=== PATIENT | female | born 1960 | race Caucasian/White ===

== ENCOUNTER → 2020-03-19 18:15 | Outpatient (CLI) | payer BC, SELFPAY | PROVIDERS: PCP Family Medicine; Referring Provider Family Medicine; Visit Provider Family Medicine | DX: U07.1 COVID-19 (principal) | CPT/HCPCS: 87635; C9803; U0003 ==

== ENCOUNTER → 2020-03-29 17:42 | Outpatient (CLI) | payer BC, SELFPAY | PROVIDERS: PCP Family Medicine; Referring Provider Family Medicine; Visit Provider Family Medicine | DX: Z20.828 Contact with and (suspected) exposure to other viral communicable diseases (principal) | CPT/HCPCS: 87635; C9803; U0003 ==

== ENCOUNTER → 2022-06-06 | Outpatient (CLI) | payer BC, SELFPAY ==
--- NOTE | 2022-06-06 13:53 | BD_ITS ---
STUDY: DUAL ENERGY X-RAY ABSORPTIOMETRY / DXA REASON FOR EXAM: Female, 62 years old. Long-term carbamazepine therapy can cause osteoporoses TECHNIQUE: Bone Mineral Density (BMD) measurements of lumbar spine and bilateral hips were obtained. COMPARISON: None. FINDINGS: Lumbar Spine (L1-L4): g/cm2 (1.037) / T-score (-0.1) / Z-score (1.5) Findings are suggestive of normal bone density with a low fracture risk. Left Femur Total: g/cm2 (1.117) / T-score (1.4) / Z-score (2.5) Left Femoral Neck: g/cm2 (0.756) / T-score (-0.8) / Z-score (0.6) Right Femur Total: g/cm2 (1.052) / T-score (0.9) / Z-score (2.0) Right Femoral Neck: g/cm2 (0.910) / T-score (0.6) / Z-score (2.0) BD/Dexa Bone Density Study IMPRESSION: The patient is considered normal as outlined below according to World Clement Organization (WHO) criteria with a low fracture risk. Reference Information: The T-score is the number of standard deviations above or below the standard which is normal for young adults at their peak bone mineral density. The World Health Organization (WHO) interprets the T-scores as follows: Above -1 Normal bone density Between -1 and -2.5 Osteopenia Equal to / or below -2.5 Osteoporosis As a practical clinical guideline, osteopenia may be graded as follows: Mild -1 through -1.5 Moderate -1.6 through -2.0 Severe -2.1 through -2.4 The Z-score is the number of standard deviations above or below age-matched controls. A Z-score of less than -1.5 would be considered abnormal. References: 1. NIH Osteoporosis and Related Bone Diseases www osteo.org 2. International Society for Clinical Densitometry www iscd.org 3. National Osteoporosis Foundation www nof.org Electronically Signed: Marco Antonio Rojo MD at 13:30 EST ,
== END | disposition home or self-care (01) ==
LOC: OPBD 13:40
PROVIDERS: PCP Family Medicine; Visit Provider Psychiatry & Neurology Neurology
DX: Z51.81 Encounter for therapeutic drug level monitoring (principal); Z79.899 Other long term (current) drug therapy; M81.8 Other osteoporosis without current pathological fracture
CPT/HCPCS: 77080

== ENCOUNTER → 2023-02-01 | Outpatient (CLI) | payer BC, SELFPAY ==
--- NOTE | 2023-02-01 12:57 | MRI_ITS ---
HISTORY: low back pain with sciatica TECHNIQUE: Multiplanar and multisequence MR images of the lumbar spine were obtained without intravenous contrast. 120 images. COMPARISON: None. FINDINGS: VERTEBRAE: Vertebral body heights maintained. Mild degenerative endplate changes in the lower lumbar spine without other significant bone marrow signal abnormality. ALIGNMENT: No anterior or posterior subluxation. CONUS: Normal morphology and position of the conus medullaris at T12-L1. INTERVERTEBRAL DISCS: T12-L1: No significant posterior disc protrusion, central canal stenosis, or foraminal narrowing based on the sagittal images. L1-2: No significant posterior disc protrusion, central canal stenosis, or foraminal narrowing. L2-3: Mild disc bulge with facet arthropathy resulting in minimal narrowing of the thecal sac and bilateral foramina. L3-4: Minimal disc bulge and moderate facet arthropathy superimposed on a developmentally narrow spinal canal resulting in mild-moderate central canal stenosis and very mild bilateral foraminal narrowing. L4-5: No significant posterior disc protrusion, central canal stenosis, or foraminal narrowing. Moderate facet arthropathy. L5-S1: No significant posterior disc protrusion, central canal stenosis, or foraminal narrowing. SOFT TISSUES: Mild posterior subcutaneous edema. MRI/Spine Lumbar (Routine) IMPRESSION: Mild multilevel degenerative disc disease as above. Electronically Signed: Marilee Yung MD at 9:31 EDT ,
== END | disposition home or self-care (01) ==
LOC: MRI 12:50
PROVIDERS: PCP Nurse Practitioner Family; Referring Provider Nurse Practitioner Family; Visit Provider Nurse Practitioner Family
DX: M54.40 Lumbago with sciatica, unspecified side (principal)
CPT/HCPCS: 72148

== ENCOUNTER → 2023-04-11 | Outpatient (CLI) | payer BC, SELFPAY ==
--- OUTSIDE RECORDS SUMMARY | 2023-04-11 13:52 | XMS RPT_ITS | CCD ---
Author Name Unknown Address [address] [place] [address] Organization [facility] Care Team Providers Care Water Restoration Technician Name Role Phone Ivanauskas, Saulius Unavailable Unavailable Ivanacritsianas, Saulius Unavailable Unavailable David Cee A Unavailable Unavailable Kate Vail Unavailable Unavailable Cee Hernandez Unavailable Unavailable Cee Hernandez Primary Care Provider EMRE EDWARDS Admitting Unavailable JUDD FAYE Attending Unavailable EMRE EDWARDS Referring Unavailable CEE HERNANDEZ Primary Care Unavailable EMRE EDWARDS Admitting Unavailable ADELITA NO Attending Unavailable EMRE EDWARDS Referring Unavailable DAVIDCEE MCDONNELL Primary Care Unavailable EMRE EDWARDS Admitting Unavailable DANIA ABDUL Attending Unavailable EMRE EDWARDS Referring Unavailable DAVIDCEE MCDONNELL Primary Care Unavailable EMRE EDWARDS Admitting Unavailable DANIA ABDUL Attending Unavailable EMRE EDWARDS Referring Unavailable DAVIDCEE MCDONNELL Primary Care Unavailable EMRE EDWARDS Admitting Unavailable JUDD FAYE Attending Unavailable EMRE EDWARDS Referring Unavailable CEE HERNANDEZ Primary Care Unavailable Cee Hernandez MD Primary Care Provider CHARLY REYES Attending Unavailable CEE HERNANDEZ Primary Care Unavailable SHEEBA REYESA CHARLINERY Admitting Unavailable SHEEBA REYESA SABRY Referring Unavailable CEE HERNANDEZ Primary Care Unavailable SHEEBA REYESA JANELL Admitting Unavailable ERIC CHARLY SABRY Referring Unavailable CEE HERNANDEZ Primary Care Unavailable CHARLY REYES Attending Unavailable CEE HERNANDEZ Primary Care Unavailable Cee Hernandez MD Primary Care Provider [phone] Cee Hernandez Unavailable Unavailable Unavailable Cee Hernandez Primary Care Unavailable PAULA, Dr. RAFAEL CLARKE Referring Unav ailable PAULA, Dr. RAFAEL CLARKE Attending Unav ailCee Wagner Primary Care Unavailable MITCHELL, Dr. RAFAEL CLARKE Attending Unav ailable Mitchell, Dr. Avery Attending Unavailable David, Dr. Cee Payan Primary Care Unavail able Mitchell, Dr. Avery Referring Unavailable David, Dr. Cee Payan Primary Care Unavail able Paula, Dr. Avery Referring Unavailable Paula, Dr. Avery Attending Unavailable Cee Hernandez MD Primary Care Provider CEE HERNANDEZ Primary Care Unavailable Erich SUPERVISOR MIXING-Sahil CLINE Primary Care Provider SAHIL BELLA Referring Unavailable SAHIL BELLA Primary Care Unavailable Allergies Allergy Classification Reported Allergen(s) Allergy Type Date of Onset Reaction(s) Facility (7 sources) iodine; Translations: [iodine] Drug Allergy 2 Itching, Swelling [facility] Repository (2 sources) Shellfish; Translations: [SHELLFISH DERIVED] Propensity to adverse reactions to drug [address] [facility] (2 sources) Ct: Iodinated Contrast- Oral And Iv Dye; Translations: [CT: IODINATED CONTRAST- ORAL AND IV DYE] Propensity to adverse reactions to drug [address] [facility] (3 sources) Lobster - dietary Food Allergy 2 Swelling [facility] (3 sources) Seasonal allergy Propensity to adverse reactions 9 Intolerance [facility] (4 sources) Tomatoes Food Allergy 4 Hives [facility] (1 source) Mold Extract Drug Allergy [facility] [address] Work Phone: (2 sources) ALLERGIES NOT ON FILE; Translations: [ALLERGIES NOT ON FILE] Propensity to adverse reactions (disorder) [facility] Medications Current Medications Medication Drug Class(es) Dates Sig (Normalized) Sig (Original) clotrimazole-betameth dip-zinc 1-0.05-20 % Cmpk (2 sources) clotrimazole-bet ameth dip-zinc 1-0.05-20 % Cmpk Apply topically . 0 Active multivitamin (multivitamin) per tablet (1 source) take 1 tablet by mouth once daily multivitamin (multivitamin) per tablet Take 1 tablet by mouth daily . 0 Active Completed/Discontinued Medications Medication Drug Class(es) Dates Sig (Normalized) Sig (Original) Bupivacaine (2 sources) Amide Local Anesthetic Start: 05-16-2021 End: 05-17-2021 bupivacaine HCl (MARCAINE) 0.5 % (5 mg/mL) injection 1 mL 12 hr carBAMazepine 400 mg extended release oral tablet (10 sources) Mood Stabilizer Start: 06-01-2017 TEGRETOL XR 400 mg 12 hr tablet TAKE 1 TABLET THREE TIMES A DAY 270 tablet 4 06/14/2018 Active Problems Active Problems Problem Classification Problem Date Documented Date Episodic/Chronic Asthma (3 sources) Asthma; Translations: [Unspecified asthma, uncomplicated] Onset: 05-21-2013 05-21-2013 Chronic Epilepsy; convulsions (2 sources) Epilepsy, unspecified, not intractable, without status epilepticus; Translations: [Epilepsy, unspecified, not intractable, without status epilepticus (CMS/HCC)] Onset: 01-12-2023 Chronic Essential hypertension (1 source) Hypertensive disorder; Translations: [Essential (primary) hypertension] 03-24-2023 Chronic Osteoarthritis (4 sources) Osteoarthritis of left foot; Translations: [Primary osteoarthritis, left ankle and foot] Chronic Other connective tissue disease (2 sources) Pain in both feet; Translations: [Pain in right foot] Episodic Other female genital disorders (1 source) Enlarged uterus; Translations: [Hypertrophy of uterus] Episodic Other lower respiratory disease (1 source) Dyspnea; Translations: [Shortness of breath] 03-24-2023 Episodic Other nervous system disorders (2 sources) Polyneuropathy, unspecified; Translations: [Polyneuropathy, unspecified] Onset: 01-12-2023 Chronic Other nutritional; endocrine; and metabolic disorders (3 sources) Obesity; Translations: [Obesity, unspecified] 06-30-2013 Chronic Other nutritional; endocrine; and metabolic disorders (3 sources) Body mass index 40+ - severely obese; Translations: [Morbid (severe) obesity due to excess calories] Onset: 10-18-2018 10-18-2018 Chronic Other and delivery including normal (1 source) Delivery normal; Translations: [Normal delivery] Episodic Past or Other Problems Problem Classification Problem Date Documented Da te Episodic/Chronic Epilepsy; convulsions (3 sources) Seizure; Translations: [Unspecified convulsions] Onset: 05-21-2013 05-21-2013 Episodic Other and unspecified benign neoplasm (3 sources) Lipoma (clinical); Translations: [Benign lipomatous neoplasm, unspecified] Onset: 03-14-2004 10-18-2018 Episodic Other female genital disorders (4 sources) Hypertrophy of uterus; Translations: [Hypertrophy of uterus] Onset: 11-15-2021 Episodic Residual codes; unclassified (1 source) Asymptomatic menopausal state; Translations: [Asymptomatic menopausal state] Onset: 11-15-2021 Episodic Spondylosis; intervertebral disc disorders; other back problems (17 sources) Lumbar radiculopathy; Translations: [Sciatica] Onset: 08-11-2008 02-03-2020 Episodic Unclassified (1 source) Finding of menstrual bleeding; Translations: [Menstruation] Results Test Name Value Interpretation Reference Range Facil ity Vital Signs Date Time Vital Sign Value Performing Clinician Facility 03-24-2023 00:38-0500 Body height 157.5 cm Trent Domínguez MD Work Phone: [facility] 03-24-2023 00:38-0500 Body mass index (BMI) [Ratio] 53.04 kg/m2 Trent Domínguez MD Work Phone: [facility] 03-24-2023 00:38-0500 Body temperature 98.6 [degF] Trent Domínguez MD Work Phone: [facility] 03-24-2023 00:38-0500 Body weight 131.54 kg Trent Domínguez MD Work Phone: [facility] 03-24-2023 00:38-0500 Diastolic blood pressure 92 mm[Hg] Trent Domínguez MD Work Phone: [facility] 03-24-2023 00:38-0500 Heart rate 82 /min Trent Domínguez MD Work Phone: [facility] 03-24-2023 00:38-0500 Respiratory rate 16 /min Trent Domínguez MD Work Phone: [facility] 03-24-2023 00:38-0500 SaO2% (BldA) [Mass fraction] 97 % Trent Domínguez MD Work Phone: [facility] 03-24-2023 00:38-0500 Systolic blood pressure 186 mm[Hg] Trent Domínguez MD Work Phone: [facility] 06-20-2021 15:34-0400 Diastolic blood pressure 94 mm[Hg] Charly Eric DPM Work Phone: [facility] 06-20-2021 15:34-0400 Heart rate 69 /min Charly Eric DPM Work Phone: [facility] 06-20-2021 15:34-0400 Systolic blood pressure 162 mm[Hg] Charly Eric DPM Work Phone: [facility] 06-20-2021 15:27-0400 Body temperature 97.7 [degF] Charly Stella DPM Work Phone: [facility] 05-16-2021 15:10-0500 Body temperature 98.2 [degF] Charly Eric DPM Work Phone: [facility] 05-16-2021 15:10-0500 Diastolic blood pressure 85 mm[Hg] Charly Eric DPM Work Phone: [facility] 05-16-2021 15:10-0500 Heart rate 70 /min Charly Stella DPM Work Phone: [facility] 05-16-2021 15:10-0500 Systolic blood pressure 145 mm[Hg] Charly Stella DPM Work Phone: [facility] 11-15-2018 17:46-0400 BMI (Body Mass Index) 49.38 kg/m2 [facility] Work Phone: 11-15-2018 17:46-0400 Body Temperature 98.1 [degF] Kate [facility]ail [facility] Work Phone: 11-15-2018 17:46-0400 Body weight 122.47 kg Kate Vail [facility] Work Phone: 11-15-2018 17:46-0400 BP Diastolic 84 mm[Hg] Kate Vail [facility] Work Phone: 11-15-2018 17:46-0400 BP Systolic 133 mm[Hg] Kate Vali [facility] Work Phone: 11-15-2018 17:46-0400 BSA (Body Surface Area) 2.17 m2 Kate [facility] Work Phone: 11-15-2018 17:46-0400 Height 157.48 cm Kate Vail [facility] Work Phone: 11-15-2018 17:46-0400 Pulse (Heart Rate) 68 /min Kate Vail [facility] Work Phone: 11-15-2018 17:46-0400 Pulse Oximetry 96 % Kate [facility]ail [facility] Work Phone: 11-15-2018 17:46-0400 Respiratory Rate 16 /min Kate Vail [facility] Work Phone: 11-15-2018 17:46-0400 7 1 Kate Vail [facility] Work Phone: Encounters Encounter Date Encounter Type Care Provider Facility Start: 03-24-2023 End: 03-24-2023 Emergency department patient visit Trent Domínguez MD Work Phone: [facility] Emergency Medicine Procedures Date Procedure Procedure Detail Performing Clinician Start: 03-08-2023 BI MAMMO BILATERAL S CREENING TOMOSYNTHESIS SAHIL BELLA Start: 03-08-2023 End: 03-08-2023 Screening digital breast tomosynthesis bi Sahil Bella SUPERVISOR MIXING-RETAIL SPECIAL EVENT ASSOCIATE Work Phone: Start: 01-12-2023 Cyanocobalamin vitamin b-12 CEE DAVID Start: 01-12-2023 CARBAMAZEPINE CEE PABLO SATHYA Start: 01-12-2023 CBC panel - Blood by Automated count CEE DAVID Start: 01-12-2023 Comprehensive metabo lic 2000 panel - Serum or Plasma CEE DAVID Start: 01-12-2023 Lipid panel CEE MILLER Start: 01-12-2023 Lipid 1996 panel - S israel or Plasma Delio Mammo Start: 03-07-2022 Mammography [facility] Start: 11-11-2021 Microscopic observat ion [Identifier] in Cervix by Cyto stain [facility] Start: 05-16-2021 End: 05-16-2021 Radex foot complete minimum 3 views Charly Reyes DPM Work Phone: Start: 02-01-2021 Mammography Katrin Santamaria MD Work Phone: Start: 11-07-2017 Mammography Charly agee DPM Work Phone: Start: 10-28-2014 Adult depression scr eening assessment Katrin Santamaria MD Work Phone: Arthroplasty of knee Cee Hernandez Work Phone: Bilateral tubal ligation Sco gab Hernandez Work Phone: Cholecystectomy Cee miller Work Phone: Elbow joint operations Cee Hernandez Work Phone: Extraction of wisdom tooth S garth Hernandez Work Phone: Plan of Treatment Date Care Activity Detail Author Start: 01-13-2028 Lipid panel Lipid Panel [facility] Start: 11-11-2024 Screening for malignant neoplasm of cervix [facility] Start: 09-01-2024 Screening for malignant neoplasm of colon [facility] Start: 03-08-2024 Screening for malignant neoplasm of breast Mammogram [facility] Start: 10-19-2023 HPV TESTING HPV TESTING [facility] Start: 10-19-2023 PAP TESTING PAP TESTING [facility] Start: 03-07-2023 Screening for malignant neoplasm of breast Mammogram [facility] Start: 04-09-2022 DEPRESSION ASSESSMENT DEPRESSION ASSESSMENT [facility] Start: 02-01-2022 Mammography MAMMOGRAM [facility] Start: 12-08-2021 Influenza vaccination [facility] Start: 08-22-2021 End: 08-22-2021 Patient encounter procedure 08/22/2021 Office Visit Podiatry Charly Reyes, DPM [address] [place] [address] [facility] Start: 06-13-2021 End: 06-13-2021 Patient encounter procedure 06/13/2021 Office Visit Podiatry Charly Reyes, DPM [address] [place] [address] [facility] Start: 05-20-2021 COVID-19 Vaccine (2 - Pfizer series) COVID-19 Vaccine (2 - Pfizer series) [facility] Start: 12-15-2020 COVID-19 VACCINE (3 - Booster for Pfizer series) COVID-19 VACCINE (3 - Booster for Pfizer series) [facility] Start: 12-08-2020 Influenza vaccination INFLUENZA (#1) [facility] Start: 09-09-2020 COVID-19 VACCINE (3 - Booster for Pfizer series) COVID-19 VACCINE (3 - Booster for Pfizer series) [facility] Start: 03-05-2020 End: 03-05-2020 Treatment [facility] Start: 03-02-2020 End: 03-02-2020 Treatment 03/02/2020 Treatment Rehabilitation Emre Edwards, [address] [place] [address] [phone] Katharine Lopes PTA [facility] Start: 02-26-2020 End: 02-26-2020 Treatment 02/26/2020 Treatment Rehabilitation Emre Edwards, DO [address] [place] [address] [phone] Judd Faye, PT [facility] Start: 02-24-2020 End: 02-24-2020 Treatment 02/24/2020 Treatment Rehabilitation Emre Edwards, DO [address] [place] [address] [phone] Katharine Lopes, [facility] Start: 02-19-2020 End: 02-19-2020 Treatment 02/19/2020 Treatment Rehabilitation Emre Edwards, DO [address] [place] [address] [phone] Dania Abdul [facility] Start: 02-17-2020 End: 02-17-2020 Treatment 02/17/2020 Treatment Rehabilitation Emre Edwards, DO [address] [place] [address] [phone] Dania Abdul [facility] Start: 02-13-2020 End: 02-13-2020 Treatment 02/13/2020 Treatment Rehabilitation Emre Edwards, [address] [place] [address] [phone] Dania Abdul [facility] Start: 02-05-2020 End: 02-05-2020 Treatment 02/05/2020 Treatment Rehabilitation Emre Edwards, DO [address] [place] [address] [phone] Adelita No [facility] Start: 12-09-2019 Influenza vaccination given Sequential Influenza Vaccine (#1) [facility] Start: 01-25-2019 DIABETES SCREEN DIABETES SCREEN [facility] Start: 12-22-2018 Tetanus vaccination Tetanus: Every 10yrs [facility] Start: 11-07-2018 Screening for malignant neoplasm of breast Mammogram [facility] Start: 05-21-2017 LIPID SCREEN LIPID SCREEN [facility] Start: 10-29-2015 Adult depression screening assessment DEPRESSION SCREENING [facility] Start: 2009 Administration of herpes zoster vaccine Zoster Vaccines (1 of 2) [facility] Start: 2009 Screening for malignant neoplasm of colon [facility] Start: 2009 SHINGRIX VACCINE (1 of 2) SHINGRIX VACCINE (1 of 2) [facility] Start: 12-23-2008 DTaP/Tdap/Td Vaccines (1 - Tdap) DTaP/Tdap/Td Vaccines (1 - Tdap) [facility] Start: 12-23-2008 Urine microalbumin profile DTAP,TDAP,TD (1 - Tdap) [facility] Start: 2004 COLOGUARD (FIT-DNA) COLOGUARD (FIT-DNA) [facility] Start: 2004 Colonoscopy COLONOSCOPY [facility] Start: 2004 COLORECTAL CANCER SCREENING COLORECTAL CANCER SCREENING [facility] Start: [address] COLONOGRAPHY [facility] Start: 2004 FECAL OCCULT BLOOD FECAL OCCULT BLOOD [facility] Start: 2004 SIGMOIDOSCOPY SIGMOIDOSCOPY [facility] Start: 01-27-2003 PNEUMOCOCCAL (2 - PCV) PNEUMOCOCCAL (2 - PCV) [facility] Start: 1980 Screening for malignant neoplasm of cervix HPV/Cotest [facility] Start: 1977 ANNUAL PCP TEAM CHRONIC DISEASE VISIT ANNUAL PCP TEAM CHRONIC DISEASE VISIT [facility] Start: 1977 Diabetes mellitus screening Diabetes Screening [facility] Start: 1977 Hepatitis C antibody, confirmatory test Hepatitis C Screening [facility] Start: 1977 Hepatitis C screening Hepatitis C Screening [facility] Start: 1977 HEPATITIS C SCREENING HEPATITIS C SCREENING [facility] Start: 1977 HIV SCREENING HIV SCREENING [facility] Start: 1977 SPIROMETRY SPIROMETRY [facility] Start: 1974 HIV screening HIV Screening [facility] Start: 1971 Adolescent depression screening assessment Depression Screening (PHQ9) [facility] Start: 1971 Depression screening using PHQ-9 (Patient Health Questionnaire 9) score Depression Screening (PHQ-2/9) [facility] Start: 1962 History and physical examination, annual for health maintenance Wellness Visit [facility] Start: 1960 MMR Vaccines (1 of 1 - Standard series) MMR Vaccines (1 of 1 - Standard series) [facility] Start: 1959 HIV screening HIV Screening [facility] Start: 1959 Screening for malignant neoplasm of cervix Pap Smear [facility] Start: 1959 Screening for malignant neoplasm of colon [facility] Start: [address] [facility] Start: 1959 Tetanus vaccination Tetanus: Every 10yrs [facility] Start: 1959 Yearly Adult Physical Yearly Adult Physical [facility] End: 03-08-2023 DBT Breast - bilateral [facility] Service Area Work Phone: Immunizations Immunization Date Immunization Notes Care Provider Manish cuello 01-22-2018 influenza, injectabl e, quadrivalent, preservative free Katrin Santamaria MD Work Phone: [facility] Work Phone: 01-04-2017 influenza, injectabl e, quadrivalent, contains preservative Katrin Santamaria MD Work Phone: [facility] Work Phone: 01-04-2017 influenza, injectabl e, quadrivalent, preservative free Katrin Santamaria MD Work Phone: [facility] Work Phone: 02-17-2016 influenza, injectabl e, quadrivalent, contains preservative Katrin Santamaria MD Work Phone: [facility] Work Phone: 01-29-2015 influenza, seasonal, injectable, preservative free Katrin Santamaria MD Work Phone: [facility] Work Phone: 02-11-2013 influenza, seasonal, injectable Katrin Santamaria MD Work Phone: [facility] Work Phone: 02-06-2012 influenza, seasonal, injectable Katrin Santamaria MD Work Phone: [facility] Work Phone: 01-27-2011 influenza, seasonal, injectable Katrin Santamaria MD Work Phone: [facility] Work Phone: 01-17-2010 influenza, seasonal, injectable Katrin Santamaria MD Work Phone: [facility] Work Phone: 03-22-2009 influenza, seasonal, injectable Katrin Santamaria MD Work Phone: [facility] Work Phone: 12-22-2008 tetanus and diphther ia toxoids, adsorbed, preservative free, for adult use (5 Lf of tetanus toxoid and 2 Lf of diphtheria toxoid) Katrin Santamaria MD Work Phone: [facility] Work Phone: 02-08-2006 influenza, seasonal, injectable Katrin Santamaria MD Work Phone: [facility] Work Phone: 01-27-2002 pneumococcal polysaccharide vaccine, 23 valent Katrin Santamaria MD Work Phone: [facility] Work Phone: Payers Date Payer Category Payer Unknown [id number] 2013 Unknown 2013 Unknown [id number] . [id number] 1959 Unknown [id number] . [id number] 1959 Unknown [id number] 2.16 [id number] 1959 Unknown [id number] 2.16. [id number] 1959 Unknown [id number] 2.16 [id number] 1959 Unknown [id number] 2.16 [id number] 1959 Unknown [id number] 2.16. [id number] 1959 Unknown [id number] 2.16. [id number] 1959 Unknown [id number] 2.16. [id number] 1959 Unknown [id number] 2.16. [id number] 1959 Unknown [id number] 2.16. [id number] 1959 Unknown [id number] 2.16. [id number] 1959 Unknown [id number] 2.16.8 [id number] 1959 Unknown [id number] 2.16.8 [id number] 1959 Unknown [id number] 2.16.84 [id number] 1959 Unknown [id number] 2.16.84 [id number] Social History Date Type Detail Facility Assertion Unknown if ever smoked [facility] Work Phone: Start: 02-03-2020 End: 02-26-2020 Tobacco smoking status DEIS Unknown if ever smoked [facility] Start: 1960 Sex Assigned At Not on file [facility] Start: 06-10-2021 End: 03-24-2023 Exposure to SARS-CoV-2 (event) Not sure [facility] Start: 05-16-2021 [facility] Start: 04-26-2012 End: 05-16-2021 Tobacco use and exposure Smokeless tobacco non-user [facility] Start: 05-16-2021 End: 06-20-2021 Alcohol intake Ex-drinker (finding) [facility] Start: 04-26-2012 Tobacco smoking stat us NHIS Never smoked tobacco [facility] Start: 02-13-2020 Alcohol intake Current drinke r of alcohol (finding) [facility] Start: 04-26-2012 History SDOH Alcohol Comment occ [facility] Gender identity Not on file [facility] Work Phone: Medical Equipment Procedure Code Equipment Code Equipment Origin al Text Equipment Identifier Dates Liborio Bn Smpx P To bra Fd - [id number] Start: 06-22-2011 Functional Status Date Assessment Result Facility NEGATED: Highlighted row Functional performance Functional status health issues are not documented [facility] Work Phone: Mental Status Date Assessment Result Facility NEGATED: Highlighted row Cognitive function [Interpretation] Cognitive status health issues are not documented [facility] Work Phone: Clinical Notes 02-01-2021 to 03-24-2023 Trent Domínguez MD - 03/24/2023 12:29 AM Bienvenido Domínguez MD - 03/24/2023 12:29 AM ESTTelephone Encounter - Patito Carranza RN - 04/18/2022 4:32 PM Adele Reyes DPM - 06/20/2021 3:50 PM EDT Note Date & Type Note Facility 03-24-2023 Emergency department Note Patient is a 62-year-old female presents with a chief complaint of dyspnea and having some sores on the underneath of her upper lip. This has been going on for quite some time . Initially she thought it might have been COVID which she had 2 weeks ago but that has seemingly resolved. What they are actually wondering, the patient and is if she is having an allergic reaction to meloxicam and if they should stop it. No chest pain. No radiating symptoms extremity neck or jaw. Review of Systems Physical Exam Vitals and nursing note reviewed. Constitutional: General: She is not in acute distress. Appearance: She is well-developed. HENT: Head: Normocephalic and atraumatic. Eyes: Conjunctiva/sclera: Conjunctivae normal. Cardiovascular: Rate and Rhythm: Normal rate and regular rhythm. Heart sounds: No murmur heard. Pulmonary: Effort: Pulmonary effort is normal. No respiratory distress. Breath sounds: Normal breath sounds. Abdominal: Palpations: Abdomen is soft. Tenderness: There is no abdominal tenderness. Musculoskeletal: General: No swelling. Cervical back: Neck supple. Skin: General: Skin is warm and dry. Capillary Refill: Capillary refill takes less than 2 seconds. Neurological: Mental Status: She is alert. Psychiatric: Mood and Affect: Mood normal. Labs Reviewed - No data to display No orders to display Procedures Medical Decision Making Patient presents with very mild dyspnea and some sores in her mouth. I did not really appreciate the sores in the mouth but she states she can feel them underneath her lip. She has no wheezing. No retractions. She is afebrile nontachycardic with normal O2 saturation on room air. I discussed at length with them that I do not believe that she is having a reaction to the meloxicam. I offered additional diagnostics such as chest x-ray and cardiac workup and they declined stating that their primary purpose was to find out if they should stop taking the meloxicam and they will follow-up with the primary care physician. The computers were down at the completion of our visit and the patient and have elected to depart prior to receiving her paperwork. Diagnoses as of 03/24/23114 Shortness of breath Hypertension, unspecified type Trent Domínguez MD 03/24/23114 documented in this encounter [facility] Work Phone: 03-24-2023 Physician Emergency department Note Patient is a 62-year-old female presents with a chief complaint of dyspnea and having some sores on the underneath of her upper lip. This has been going on for quite some time . Initially she thought it might have been COVID which she had 2 weeks ago but that has seemingly resolved. What they are actually wondering, the patient and is if she is having an allergic reaction to meloxicam and if they should stop it. No chest pain. No radiating symptoms extremity neck or jaw. Review of Systems Physical Exam Vitals and nursing note reviewed. Constitutional: General: She is not in acute distress. Appearance: She is well-developed. HENT: Head: Normocephalic and atraumatic. Eyes: Conjunctiva/sclera: Conjunctivae normal. Cardiovascular: Rate and Rhythm: Normal rate and regular rhythm. Heart sounds: No murmur heard. Pulmonary: Effort: Pulmonary effort is normal. No respiratory distress. Breath sounds: Normal breath sounds. Abdominal: Palpations: Abdomen is soft. Tenderness: There is no abdominal tenderness. Musculoskeletal: General: No swelling. Cervical back: Neck supple. Skin: General: Skin is warm and dry. Capillary Refill: Capillary refill takes less than 2 seconds. Neurological: Mental Status: She is alert. Psychiatric: Mood and Affect: Mood normal. Labs Reviewed - No data to display No orders to display Procedures Medical Decision Making Patient presents with very mild dyspnea and some sores in her mouth. I did not really appreciate the sores in the mouth but she states she can feel them underneath her lip. She has no wheezing. No retractions. She is afebrile nontachycardic with normal O2 saturation on room air. I discussed at length with them that I do not believe that she is having a reaction to the meloxicam. I offered additional diagnostics such as chest x-ray and cardiac workup and they declined stating that their primary purpose was to find out if they should stop taking the meloxicam and they will follow-up with the primary care physician. The computers were down at the completion of our visit and the patient and have elected to depart prior to receiving her paperwork. Diagnoses as of 03/24/23114 Shortness of breath Hypertension, unspecified type Trent Domínguez MD 03/24/23114 [facility] Work Phone: 04-18-2022 Miscellaneous Notes LVM that [facility] sent a fax for refill. Pt is due for an appt. Enc to call to sched appt and let us know if she does need a refill. Patito Carranza RN documented in this encounter [facility] 11-11-2021 Note 31 Date of Procedure: 11/11/2021 Pathologist: [facility], Cytology Date Reported: 11/18/2021 Date Received: 11/11/2021 Submitting Physician: RAFAEL MITCHELL M.D. FINAL CYTOLOGICAL INTERPRETATION A. THINPREP PAP CERVICAL: Specimen Adequacy: SATISFACTORY FOR EVALUATION. Quality Indicator: Absence of endocervical/transformation zone component. General Categorization: NEGATIVE FOR INTRAEPITHELIAL LESION OR MALIGNANCY. HIGH RISK HPV TEST RESULT: NEGATIVE Reference Range: Negative Slide(s) initially screened by a Inventory Control Analyst at [facility], [address] [place], [place] [id number] Testing for high-risk (HR) type of human papilloma virus (HPV) is performed by the Ronaldo rahat HPV Test. The rahat HPV Test is a qualitative polymerase chain reaction that amplifies DNA of HPV16, HPV18 and 12 other high-risk HPV types (31, 33, 35, 39, 45, 51, 52, 56, 58, 59, 66, and 68) associated with cervical cancer and its precursor lesions. A positive result indicates the presence of HPV DNA due to one or more of the 14 genotypes: 16, 18, 31, 33, 35, 39, 45, 51, 52, 56, 58, 59, 66, and 68. Negative results indicate HPV DNA concentrations are undetectable or below the pre-set threshold for detection. False negative results may be associated with unoptimized sampling. A negative HR HPV result does not exclude the possibility of future cytologic HSIL or underlying CIN2-3 or cancer. This test is approved for cervical specimens by the US Food and Drug Administration. Results of this test should be interpreted in conjunction with the patient?s Pap test results. Please refer to ASCCP current guidelines for the use of HPV DNA testing, result interpretation, and patient management. The performance of this test was verified by the [facility] Laboratory at [facility]. The lab is certified under the Clinical Laboratory Amendments of 1988 (CLIA 88) as qualified to perform high complexity clinical laboratory testing. This specimen has been analyzed by the [employer] Imaging System ([employer] an automated imaging and review system, which assists the laboratory in evaluating cells on ThinPrep Pap tests. Following automated imaging, selected gomez from every slide were reviewed by a cab station attendant and/or pathologist. Electronically Signed Out By [facility], Cytology//KMW By the signature on this report, the individual or group listed as making the Final Interpretation/Diagnosis certifies that they have reviewed this case. Diagnostic interpretation performed at [facility] [address] [place] [address] Educational Note: Cervical cytology is a screening procedure primarily for squamous cancers and precursors and has associated false-negative and false-positive results as evidenced by published data. Your patient?s test should be interpreted in this context, together with patient?s history and clinical findings. Regular sampling and follow-up of unexplained clinical signs and symptoms are recommended to minimize false negative results. Clinical History Date of Last Menstrual Period: ALBERTO Other Clinical Conditions: COTEST HPV except for ASC-H, HSIL, Carcinoma - Exclude HPV Genotype testing Annual Clinical Diagnosis History: Encounter for routine gynecological examination - (Z01.419); Screening for cervical cancer - (Z12.4) Source of Specimen A: THINPREP PAP CERVICAL [facility] Department of Pathology [id number] [place] [address] [facility] Diagnosis Primary osteoarthritis of left foot- Primary Primary osteoarthritis of right foot Bilateral foot pain [facility] Diagnosis Encounter for screening mammogram for malignant neoplasm of breast documented in this encounter [facility] Work Phone: Evaluation note* Diagnosis Encounter for screening mammogram for malignant neoplasm of breast documented in this encounter [facility] Work Phone: Evaluation note* Diagnosis Shortness of breath- Primary Hypertension, unspecified type documented in this encounter [facility] Work Phone: Summary Purpose Family History Unknown Family Member Name Dates Details No pertinent family history: Mother, Father(V49.89, Z78.9) Status:Active Advance Directives Documents on File Type Date Recorded Patient 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 Radiculopathy, lumbar region 2. Sciatica of right side Clinical Information: Subjective Referring Diagnosis: Lumbar Radiculopathy Follow Up With Physician: none scheduled. History of Present Illness Date of Onset: years. Chief Complaint/ Mechanism of Injury: Pt reports c/o low back, right side buttock and right posterolateral hip pain. Pt states the only thing she can recall that may have caused her symptoms was sitting down on the floor for an extended period of time to play with her grandchild. Pt states she has been dealing with a pinched nerve in her buttock for years. She has been through therapy in the pastand was provided stretches which she continues to perform and get relief of symptoms. Pt reports occasional LE numbness if she lies on her side for too long. Pt also reports feeling like there are pieces of glass in her achilles tendon. Previous Treatment for this condition: Therapy Prior treatment effectiveness: moderate Previous Imaging: X-ray (01/09/20) Status: improving (since taking the steroids) Pain Scale: Average Pain: 1/10 Pain at highest: 4/10 Aggravating factors: prolonged standing and walking, forward bending from a standing position Easing factors: Diclofenac, 2 doses of steroids, heat, rest 24 Hour Symptom Behavior Morning Pain: gradual End of day pain: worse Functional Status Functional Limitations: limited mobility and standing Premorbid Functional Level: Patient reported and Independent with all ADLs/IADLs Current Functional Level: None Daily activity scale: low active Sleep Assessment Preferred sleep position: on side (left) Sleep disturbance: Sleep Disturbance Red Flags: None Barriers to Care: None Fall risk screening Fallen 2 or more times in the last 12 months: No Injured as a result of a fall in the last 12 months: No Personal Goals: Manage pain and return to prior level of function Social History Occupation: retired - enjoys yard work and playing with her grandchildren Home environment: house ([address]) Advent, social, or cultural considerations to be made aware of before starting treatment: No Lumbar Spine Posture: rounded shoulders posture and reduced lordosis Asymmetrics: Leg length: right shorter <1cm Trunk AROM: Movement Loss % of Loss Description Flexion 0% increased right posterolateral hip pain Extension 0% slight pain in right PSIS region Side Gliding R 25% no change Side Gliding L 25% slight pain in lower lumbar spine Dermatomes Sensation: grossly intact Muscle Strength: Hip Flexion Right: 4 Left: 4 Knee extension Right: 4+ Left: 5 Ankle DF Right: 5 Left: 5 Ankle PF Right: 5 Left: 5 Knee flexion Right: 5 Left: 5 Hip extension Right: 4 Left: 4 Hip ABD Right: 5 Left: 4+ Special Tests Slump Right: no Slump R Left: no Slump L SLR Right: no SLR R Left: no SLR L Scour: Negative Right for hip joint but produced pain in the right SIJ region TANYA: Positive Right for possible SIJ dysfunction SIJ dysfunction: SIJ Dysfunction FOTO Score: 50 Treatments: Physical Therapy Exercise Log - 02/03/20 1138 OTHER Notes Visit 1: 10:55 - 11:35 Therapeutic Exercise (72714) Intervention provided written HEP handouts consisting of LTR, SKTC, piriformis and HS stretches andPPTs PT Treatment Times Total Treatment Time 40 Goals: Physical Therapy Ortho Goals: MOBILITY: Patient will be able to ambulate for up to 20 minutes in community without difficulty in 6 weeks. CHANGING MAINTAINING POSITON: Patient will be able to stand for up to 30 minutes without pain in 6 weeks IMPAIRMENT: Patient will demonstrate improved postural awareness in PT sessions to facilitate mechanical alignment and function in 3 weeks. IMPAIRMENT: Improve pain from 4/10 to <3/10 during prolonged standing and ambulation in 6 weeks IMPAIRMENT: Improve MMT of Bilateral Hip Flexion from 4/5 to at least 4+/5 in 6 weeks OTHER: Patient will increase FOTO score from 50 to at least 60 to show MDC/MCII and expected functional outcome in 6 weeks. OTHER: Patient will be able to properly demonstrate independence with HEP in 2 weeks. CPT Code 39163 Low 06861 Moderate 76089 High History 0 1-2 3+ Comorbidities: asthma, obesity and seizures, Personal factors: chronicity or severity of the current condition Examination of body systems (elements of body structures & functions, activity limitations, and/or participation restrictions) 1-2 elements 3+ elements 4+ elements See below clinical impression Clinical Presentation Stable Evolving Unstable As evidenced by reproduction of or changes in symptoms with certain movements and pt report of overall worsening of symtpoms over time Decision Making Low (FOTO >/= 69) Moderate (FOTO 34 - 68) High (FOTO </= 33) FOTO score= 50 Pt is a 59 y.o. female who presents to PT services with c/o right side low back/SIJ pain. Upon assessment, pt has been found with the following impairments: impaired posture, decreased strength, antalgic gait, decreased stability and pain. 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 The pt would benefit from skilled PT services focused on the above listed impairments and limitations in order to safely progress pt to their desired level of function. Pt to be discharged from OP PT services if/when goals are met, if they fail to make progress with conservative management in PT, if their level of progress plateaus, or if they do not maintain compliance with attendance or HEP. At this time, it is my clinical judgment that services are medically necessary. Plan of Care Frequency of Visits: 2 times per week Duration: 6 weeks Interventions: Therapeutic Exercise, Neuromuscular Re-Education, Manual Therapy, Therapeutic/ Functional Activities, Gait Training and Hot/Cold Pack Rehab Potential: good Suicide Screen Signs and Symptoms of Abuse/Neglect: No Actions Taken: No Suicide Risk: Does the patient feel like ending their life today?No Actions Taken: No Patient Education Provided Pt was educated on the benefits of therapy and importance of compliance with sessions and HEP for rehabilitation. Pt was also educated on treatment diagnosis, POC, and frequency/duration of treatment. Clinical Impression Pt would benefit from PT interventions for possible lumbar radiculopathy and piriformis syndrome toaddress impairments in trunk ROM, mobility and core strength/stability as well as pain control. Judd Faye PT State License, [id number] documented in this encounter* Adelita No, TRINITY - 02/05/2020 1:45 PM EDT [facility] DAILY TREATMENT NOTE Today's Date 02/05/2020 Patient Name: Vani Escobar Date of : 1960 Current Visit #: 2 Authorized Visits: 60 Case Name: Lumbar Radiculopathy History: Pre-Treatment Pain Scale: 1 - just from stretching Symptoms: limited progress, 1st visit Functional Diagnosis: 1. Radiculopathy, lumbar region Clinical Information: Subjective: Pt reports having difficulty with HEP, will review all ex's Objective Continued with current ex given with HEP review and added SB core ex's for strengthening/stretching LB. Treatments: Physical Therapy Exercise Log - 02/05/20 1346 OTHER Notes Visit 1: 10:55 - 11:35 Therapeutic Exercise (01406) Intervention provided written HEP handouts consisting of LTR, SKTC, piriformis and HS stretches andPPTs Parameters SKTC w/ towel 10 x 10 Intervention Supine HS w/ towel 10 x 10 Parameters PPT 10 x 5 ( a little sore) Intervention LTR x 10 hold 5 Parameters RSB roll out x10 Intervention RSB side to side PT Treatment Times Therex Total Time 41 Direct Treatment Time 41 Total Treatment Time 44 Goals: Physical Therapy Ortho Goals: MOBILITY: Patient will be able to ambulate for up to 20 minutes in community without difficulty in 6 weeks. CHANGING MAINTAINING POSITON: Patient will be able to stand for up to 30 minutes without pain in 6 weeks IMPAIRMENT: Patient will demonstrate improved postural awareness in PT sessions to facilitate mechanical alignment and function in 3 weeks. IMPAIRMENT: Improve pain from 4/10 to <3/10 during prolonged standing and ambulation in 6 weeks IMPAIRMENT: Improve MMT of Bilateral Hip Flexion from 4/5 to at least 4+/5 in 6 weeks OTHER: Patient will increase FOTO score from 50 to at least 60 to show MDC/MCII and expected functional outcome in 6 weeks. OTHER: Patient will be able to properly demonstrate independence with HEP in 2 weeks. Patient Education: Verbal HEP with patient verbalized understanding. Post-Treatment Pain Scale: 0 Assessment: Patient had an expected response to treatment. Skilled Intervention demonstrated by modifications of treatment per exercise log including increased intensity and safety interventions per exercise log. Progress towards goals as expected. Plan for Next Visit: Treatment Visit with focus on LB/ core stretching, stretching and re-educationof HEP /technique Adelita No PTA STATE LICENSE, [id number] documented in this encounter* Dania Abdul PTA - 02/17/2020 11:30 AM EST [facility] DAILY TREATMENT NOTE Today's Date 02/17/2020 Patient Name: Vani Escobar Date of : 1960 Current Visit #: 3 Authorized Visits: 60 Case Name: Lumbar Radiculopathy History: Pre-Treatment Pain Scale: 1 Symptoms: stabilized Functional Diagnosis: 1. Radiculopathy, lumbar region Clinical Information: Subjective: Pt reports min pain or radiculopathy coming in today Objective Started session with scifit Added bridges Treatments: Physical Therapy Exercise Log - 02/17/20 1127 OTHER Precautions/Contraindications *Mounika Notes Visit 3: [id number] Therapeutic Exercise (35656) Intervention Scifit L1 x8min Parameters SKTC w/ towel 10 x 10 Intervention Supine HS w/ towel 10 x 10 Parameters PPT 10 x 5 Intervention LTR x 10 hold 5 Parameters Piriformis stretch 3x30'' Intervention RSB side to side Parameters RSB roll out x10 Intervention Bridge x10 PT Treatment Times Therex Total Time 40 Direct Treatment Time 40 Total Treatment Time 42 Goals: Physical Therapy Ortho Goals: MOBILITY: Patient will be able to ambulate for up to 20 minutes in community without difficulty in 6 weeks. CHANGING MAINTAINING POSITON: Patient will be able to stand for up to 30 minutes without pain in 6 weeks IMPAIRMENT: Patient will demonstrate improved postural awareness in PT sessions to facilitate mechanical alignment and function in 3 weeks. IMPAIRMENT: Improve pain from 4/10 to <3/10 during prolonged standing and ambulation in 6 weeks IMPAIRMENT: Improve MMT of Bilateral Hip Flexion from 4/5 to at least 4+/5 in 6 weeks OTHER: Patient will increase FOTO score from 50 to at least 60 to show MDC/MCII and expected functional outcome in 6 weeks. OTHER: Patient will be able to properly demonstrate independence with HEP in 2 weeks. Patient Education: Verbal HEP with patient verbalized understanding. Post-Treatment Pain Scale: 1 Assessment: Patient had an expected response to treatment. Skilled Intervention demonstrated by modifications of treatment per exercise log including assessment of patient's response and safety interventions per exercise log. Progress towards goals as expected. Plan for Next Visit: Treatment Visit with focus on progressing as tolerated Dania Abdul PTA STATE LICENSE, [id number] documented in this encounter* Neyda, Judd, PT - 02/26/2020 11:30 AM EST [facility] DAILY TREATMENT NOTE Today's Date 02/26/2020 Patient Name: Vani Escobar Date of : 1960 Current Visit #: 5 Authorized Visits: 60 Case Name: Lumbar Radiculopathy History: Pre-Treatment Pain Scale: 4 Symptoms: unchanged Functional Diagnosis: 1. Radiculopathy, lumbar region Clinical Information: Subjective: Pt denies change in med hx but reports increased pain today from sitting on the floor with her grandchildren yesterday. Objective Treatments: Physical Therapy Exercise Log - 02/26/20 1135 OTHER Precautions/Contraindications *Mounika Notes Visit 5: 11:34 - 12:12 Therapeutic Exercise (22869) Intervention Scifit L2 x 6min Parameters SKTC w/ towel 10 x 10 Intervention Supine HS w/ towel 10 x 10 Parameters PPT 10 x 5 Intervention LTR x 10 hold 5 Parameters Piriformis stretch 3x30'' Intervention RSB side to side x10 Parameters RSB roll out x10 Intervention Bridge x10 held d/t pt reports of pain Parameters Sink ex's (abd, ext, HR, marches) x10 PT Treatment Times Therex Total Time 38 Direct Treatment Time 38 Total Treatment Time 38 Goals: Physical Therapy Ortho Goals: MOBILITY: Patient will be able to ambulate for up to 20 minutes in community without difficulty in 6 weeks. CHANGING MAINTAINING POSITON: Patient will be able to stand for up to 30 minutes without pain in 6 weeks IMPAIRMENT: Patient will demonstrate improved postural awareness in PT sessions to facilitate mechanical alignment and function in 3 weeks. IMPAIRMENT: Improve pain from 4/10 to <3/10 during prolonged standing and ambulation in 6 weeks IMPAIRMENT: Improve MMT of Bilateral Hip Flexion from 4/5 to at least 4+/5 in 6 weeks OTHER: Patient will increase FOTO score from 50 to at least 60 to show MDC/MCII and expected functional outcome in 6 weeks. OTHER: Patient will be able to properly demonstrate independence with HEP in 2 weeks. Patient Education: Quality of movement and HEP Adherence with patient verbalized understanding. Post-Treatment Pain Scale: 3 Assessment: Patient had an expected response to treatment. Skilled Intervention demonstrated by modifications of treatment per exercise log including assessment of patient's response and safety interventions per exercise log. Progress towards goals as expected. Plan for Next Visit: Treatment Visit with focus on strength and stability Judd Faye PT State License, [id number] documented in this encounter* Dania Abdul, TABLE GAMES MANAGER - 02/24/2020 11:30 AM EST [facility] DAILY TREATMENT NOTE Today's Date 02/24/2020 Patient Name: Vani Escobar Date of : 1960 Current Visit #: 4 Authorized Visits: 60 Case Name: Lumbar Radiculopathy History: Pre-Treatment Pain Scale: 1 Symptoms: stabilized Functional Diagnosis: 1. Radiculopathy, lumbar region Clinical Information: Subjective: Pt reports a lot of soreness after last session but she has min pain coming in today Pt reports some increased soreness with standing abd Objective Treatments: Physical Therapy Exercise Log - 02/24/20 1137 OTHER Precautions/Contraindications *Mounika Notes Visit 4: 2619-4318 Therapeutic Exercise (56544) Intervention Scifit L1 x8min Parameters SKTC w/ towel 10 x 10 Intervention Supine HS w/ towel 10 x 10 Parameters PPT 10 x 5 Intervention LTR x 10 hold 5 Parameters Piriformis stretch 3x30'' Intervention RSB side to side Parameters RSB roll out x10 Intervention Bridge x10 Parameters Sink ex's (abd, ext, HR, marches) x10 PT Treatment Times Therex Total Time 38 Direct Treatment Time 38 Total Treatment Time 38 Goals: Physical Therapy Ortho Goals: MOBILITY: Patient will be able to ambulate for up to 20 minutes in community without difficulty in 6 weeks. CHANGING MAINTAINING POSITON: Patient will be able to stand for up to 30 minutes without pain in 6 weeks IMPAIRMENT: Patient will demonstrate improved postural awareness in PT sessions to facilitate mechanical alignment and function in 3 weeks. IMPAIRMENT: Improve pain from 4/10 to <3/10 during prolonged standing and ambulation in 6 weeks IMPAIRMENT: Improve MMT of Bilateral Hip Flexion from 4/5 to at least 4+/5 in 6 weeks OTHER: Patient will increase FOTO score from 50 to at least 60 to show MDC/MCII and expected functional outcome in 6 weeks. OTHER: Patient will be able to properly demonstrate independence with HEP in 2 weeks. Patient Education: Verbal HEP with patient verbalized understanding. Post-Treatment Pain Scale: 1 Assessment: Patient had an expected response to treatment. Skilled Intervention demonstrated by modifications of treatment per exercise log including assessment of patient's response and safety interventions per exercise log. Progress towards goals as expected. Plan for Next Visit: Treatment Visit with focus on progressing as tolerated Dania Abdul PTA STATE LICENSE, [id number] documented in this encounter Assessments Diagnosis Radiculopathy, lumbar region Thoracic or lumbosacral neuritis or radiculitis, unspecified Sciatica of right side Diagnosis Radiculopathy, lumbar region- Primary Thoracic or lumbosacral neuritis or radiculitis, unspecified Reason for Referral Specialty Diagnoses / Procedures Referred By Arelis benson Referred To Contact Radiology Diagnoses Encounter for screening mammogram for malignant neoplasm of breast Procedures BI mammo bilateral screening tomosynthesis Sahil Bella, SUPERVISOR MIXING-RETAIL SPECIAL EVENT ASSOCIATE [address] [address] Referral ID Status Reason Start Date Expiration Date Visits Requested Visits Authorized [id number] Authorized Perform Procedure 01/12/2023 07/11/2023 1 1 Additional Source Comments INFORMATION SOURCE (unrecogn ized section and content) DATE CREATED AUTHOR AUTHOR'S ORGANIZ ATION 11/23/2018 [facility] DATE CREATED AUTHOR AUTHOR'S ORGANIZ ATION 11/28/2018 [facility] DATE CREATED AUTHOR AUTHOR'S ORGANIZ ATION 03/01/2020 [facility] DATE CREATED AUTHOR AUTHOR'S ORGANIZ ATION 05/31/2021 [facility] DATE CREATED AUTHOR AUTHOR'S ORGANIZ ATION 06/21/2021 [facility] DATE CREATED AUTHOR AUTHOR'S ORGANIZ ATION 11/12/2021 [email or web address] DATE CREATED AUTHOR AUTHOR'S ORGANIZ ATION 03/13/2022 [facility] DATE CREATED AUTHOR AUTHOR'S ORGANIZ ATION 03/15/2022 [facility] DATE CREATED AUTHOR AUTHOR'S ORGANIZ ATION 04/19/2022 [facility] DATE CREATED AUTHOR AUTHOR'S ORGANIZ ATION 01/19/2023 [facility] DATE CREATED AUTHOR AUTHOR'S ORGANIZ ATION 03/13/2023 [facility] Reason for Visit (unrecogniz ed section and content) Status Reason Specialty Diagnoses / Procedures Referred By Contact Referred To Contact Authorized Rehabilitation Diagnoses Radiculopathy, lumbar region Emre Edwards, DO [address] [place] [address] [id number] Reason Comments Foot Pain Bilateral foot pain x years. Feet are stiff and sore. Pain radiates down her feet and up her ankles. 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 Left foot more sore than right foot. Feet are worst in the morning. Reason Comments Follow-up L foot osteoarthriti s - pt states that the injection helped some but did not last very long- pt did get compression stockings and new shoes and has noticed a big difference in the pain - it has improved a lot- Reason Comments Refill Request Estradiol vaginal cr eam 42.5 gm Reason Onset Date Comments Refill Request 07/18/2021 Estradiol vag cr eam w/appl 42.5 gm 0.01% Reason Comments Refill Request Specialty Diagnoses / Procedures Referred By Arelis benson Referred To Contact Radiology Diagnoses Encounter for screening mammogram for malignant neoplasm of breast Procedures BI mammo bilateral screening tomosynthesis Sahil Bella APRN-SON [address] [address] Referral ID Status Reason Start Date Expiration Date Visits Requested Visits Authorized [id number] Authorized Perform Procedure 01/12/2023 07/11/2023 1 1 Reason Comments Shortness of Breath Care Teams (unrecognized sec tion and content) 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 [address] [address] PCP - General Family Medicine 03/08/23 Water Restoration Technician Relationship Specialty Start Date End Date Sahil Bella APRNRETAIL SPECIAL EVENT ASSOCIATE [address] [address] PCP - General Family Medicine 03/08/23 Water Restoration Technician Relationship Specialty Start Date End Date Erich Sahil SUPERVISOR [facility] [address] [address] PCP - General Family Medicine 03/08/23 Source Comments (unrecognize d section and content) In the event this informatio n is protected by the Federal Confidentiality of Alcohol and Drug Abuse Patient Records regulations: The Federal rules restrict any use of the information to criminally investigate or prosecute any alcohol or drug abuse patient.[facility]healthIn the event this information is protected by the Federal Confidentiality of Alcohol and Drug Abuse Patient Records regulations: The Federal rules restrict any use of the information to criminally investigate or prosecute any alcohol or drug abuse patient.[facility]healthIn the event this information is protected by the Federal Confidentiality of Alcohol and Drug Abuse Patient Records regulations: The Federal rules restrict any use of the information to criminally investigate or prosecute any alcohol or drug abuse patient.[facility] FOR RECORDS PERTAINING TO PATIENTS WHO ARE OR HAVE BEEN ENROLLED IN A CHEMICAL DEPENDENCY/SUBSTANCEABUSE PROGRAM, SOME INFORMATION MAY BE OMITTED. This clinical summary was aggregated from multiple sources. Caution should be exercised in using it in the provision of clinical care. This summary normalizes information from multiple sources, and as a consequence, information in this document may materially change the coding, format and clinical context of patient data. In addition, data may be omitted in some cases. CLINICAL DECISIONS SHOULD BE BASED ON THE PRIMARY CLINICAL RECORDS. [facility] [facility]. provides no warranty or guarantee of the accuracy or completeness of information in this document.
--- NOTE | 2023-04-11 14:54 | NEURO_ITS ---
NCS and/or EMG Patient Report Ordering Doctor: Teresa Jung DATE OF SERVICE: 04/11/23 Vani for electrodiagnostic testing of the lower extremities. She reports weakness in both legs. She reports pain in both legs, worse with walking. Electrodiagnostic findings: Right peroneal motor nerve demonstrates normal d istal latency, amplitude and conduction velocity. Left peroneal motor nerve demonstrates normal distal latency and amplitude with normal conduction velocity. Tibial motor responses within normal limits bilaterally. Normal peroneal and tibial F waves. H-reflex is prolonged bilaterally. Absent sural response bilaterally. Superficial peroneal responses are within normal limits. Needle EMG testing was performed the lower limbs. All muscles tested showed no evidence of denervation with normal motor unit action potentials. Electrodiagnostic assessment: This is an abnormal study in the lower limbs. 1. Electrodiagnostic findings demonstrate absence of sural response bilaterally. 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 2. There is no electrodiagnostic evidence for peripheral polyneuropathy. 3. There is no electrodiagnostic evidence for lumbosacral radiculopathy. 4. There is no electrodiagnostic evidence for myopathy. Multi Select Codes Neurology Neurology Interp Codes: 87578-46 Musc test done w/n test comp (interp) (2) and 55082-60 Nrv cndj test 9-10 studies (interp)
== END | disposition home or self-care (01) ==
LOC: PSN 13:29
PROVIDERS: PCP Nurse Practitioner Family; Referring Provider Nurse Practitioner Family; Visit Provider Nurse Practitioner Family
DX: R29.898 Other symptoms and signs involving the musculoskeletal system (principal)
CPT/HCPCS: 95886; 95911

== ENCOUNTER → 2023-05-11 | Outpatient (CLI) | payer BC, SELFPAY ==
--- OUTSIDE RECORDS SUMMARY | 2023-05-11 18:33 | XMS RPT_ITS | CCD ---
Author Name Unknown Address [address] [place] [address] Organization [facility] Care Team Providers Care Guest Services Assistant Name Role Phone Ivanauskas, Saulius Unavailable Unavailable Ivanacristianas, Saulius Unavailable Unavailable David Cee A Unavailable Unavailable Kate Vail Unavailable Unavailable Cee Hernandez Unavailable Unavailable Cee Hernandez Primary Care Provider [phone] EMRE EDWARDS Admitting Unavailable JUDD FAYE Attending Unavailable EMRE EDWARDS Referring Unavailable DAVIDCEE [...] EDWARDS Admitting Unavailable JUDD FAYE Attending Unavailable ERME EDWARDS Referring Unavailable CEE HERNANDEZ Primary Care [...] Unavailable Cee Hernandez MD Primary Care Provider Cee Hernandez Unavailable Unavailable Unavailable Cee Hernandez [...] Provider CEE HERNANDEZ Primary Care Unavailable Erich FIRE MANAGEMENT OFFICER-Sahil CLINE Primary Care Provider SAHIL BELLA Referring Unavailable SAHIL BELLA Primary Care Unavailable Allergies Allergy Classification Reported Allergen(s) Allergy Type Date of Onset Reaction(s) Facility (7 sources) iodine; Translations: [iodine] Drug Allergy 2 Itching, Swelling [facility] Repository (2 sources) Shellfish; Translations: [SHELLFISH DERIVED] Propensity to adverse reactions to drug 2 Swelling [facility] (2 sources) Ct: Iodinated Contrast- Oral And Iv Dye; Translations: [CT: IODINATED CONTRAST- ORAL AND IV DYE] Propensity to adverse reactions to drug 2 Itching [facility] (3 sources) Lobster - dietary Food Allergy 2 Swelling [facility] (3 sources) Seasonal allergy Propensity to adverse reactions 9 Intolerance [facility] (4 sources) Tomatoes Food Allergy 4 Hives [facility] (1 source) Mold Extract Drug Allergy [facility] [address] Work Phone: (2 sources) ALLERGIES NOT ON FILE; Translations: [ALLERGIES NOT ON FILE] Propensity to adverse reactions (disorder) [facility] Medications Current Medications Medication Drug Class(es) [...] 157.5 cm Trent Domínguez MD Work Phone: [facility] 03-24-2023 00:38-0500 Body mass index (BMI) [Ratio] 53.04 kg/m2 Trent Domínguez MD Work Phone: [facility] 03-24-2023 00:38-0500 Body temperature 98.6 [degF] Trent Domínguez MD Work Phone: [facility] 03-24-2023 00:38-0500 Body weight 131.54 kg Trent Domínguez MD Work Phone: [facility] 03-24-2023 00:38-0500 Diastolic blood pressure 92 mm[Hg] Trent Domínguez MD Work Phone: [facility] 03-24-2023 00:38-0500 Heart rate 82 /min Trent Domínguez MD Work Phone: [facility] 03-24-2023 00:38-0500 Respiratory rate 16 /min Trent Domínguez MD Work Phone: [facility] 03-24-2023 00:38-0500 SaO2% (BldA) [Mass fraction] 97 % Trent Domínguez MD Work Phone: [facility] 03-24-2023 00:38-0500 Systolic blood pressure 186 mm[Hg] Trent Domínguez MD Work Phone: [facility] 06-20-2021 15:34-0400 Diastolic blood pressure 94 mm[Hg] Charly Eric DPM Work Phone: [facility] 06-20-2021 15:34-0400 Heart rate 69 /min Charly Marks DPM Work Phone: [facility] 06-20-2021 15:34-0400 Systolic blood pressure 162 mm[Hg] Charly Eric DPM Work Phone: [facility] 06-20-2021 15:27-0400 Body temperature 97.7 [degF] Charly Marks DPM Work Phone: [facility] 05-16-2021 15:10-0500 Body temperature 98.2 [degF] Charly Marks DPM Work Phone: [facility] 05-16-2021 15:10-0500 Diastolic blood pressure 85 mm[Hg] Charly Marks DPM Work Phone: [facility] 05-16-2021 15:10-0500 Heart rate 70 /min Charly Marks DPM Work Phone: [facility] 05-16-2021 15:10-0500 Systolic blood pressure 145 mm[Hg] Charly Marks DPM Work Phone: [facility] 11-15-2018 17:46-0400 BMI (Body Mass Index) 49.38 kg/m2 [facility] Work Phone: 11-15-2018 17:46-0400 Body Temperature 98.1 [degF] Kate Vail [facility] Work Phone: 11-15-2018 17:46-0400 Body weight 122.47 kg Kate Vail [facility] Work Phone: 11-15-2018 17:46-0400 BP Diastolic 84 mm[Hg] Kate Vail [facility] Work Phone: 11-15-2018 17:46-0400 BP Systolic 133 mm[Hg] Kate Vail [facility] Work Phone: 11-15-2018 17:46-0400 BSA [...] patient visit Trent Domínguez MD Work Phone: [facility] Emergency Medicine Procedures Date Procedure Procedure Detail Performing Clinician Start: 03-08-2023 BI MAMMO BILATERAL S CREENING TOMOSYNTHESIS SAHIL BELLA Start: 03-08-2023 End: 03-08-2023 Screening digital breast tomosynthesis bi Sahil Bella FIRE MANAGEMENT OFFICER-SWEET PICKLE MAKER Work Phone: Start: 01-12-2023 Cyanocobalamin vitamin b-12 [...] Author Start: 01-13-2028 Lipid panel Lipid Panel [facility] Start: 11-11-2024 Screening for malignant neoplasm of cervix [facility] Start: 09-01-2024 Screening for malignant neoplasm of colon [facility] Start: 03-08-2024 Screening for malignant neoplasm of breast Mammogram [facility] Start: 10-19-2023 HPV TESTING HPV TESTING [facility] Start: 10-19-2023 PAP TESTING PAP TESTING [facility] Start: 03-07-2023 Screening for malignant neoplasm of breast Mammogram [facility] Start: 04-09-2022 DEPRESSION ASSESSMENT DEPRESSION ASSESSMENT [facility] Start: 02-01-2022 Mammography MAMMOGRAM [facility] Start: 12-08-2021 Influenza vaccination [facility] Start: 08-22-2021 End: 08-22-2021 Patient encounter procedure 08/22/2021 Office Visit Podiatry Charly Reyes, DPM [address] [place] [address] [facility] Start: 06-13-2021 End: 06-13-2021 Patient encounter procedure 06/13/2021 Office Visit Podiatry Charly Reyes, DPM [address] [place] [address] [facility] Start: 05-20-2021 COVID-19 Vaccine (2 - Pfizer series) COVID-19 Vaccine (2 - Pfizer series) [facility] Start: 12-15-2020 COVID-19 VACCINE (3 - Booster for Pfizer series) COVID-19 VACCINE (3 - Booster for Pfizer series) [facility] Start: 12-08-2020 Influenza vaccination INFLUENZA (#1) [facility] Start: 09-09-2020 COVID-19 VACCINE (3 - Booster for Pfizer series) COVID-19 VACCINE (3 - Booster for Pfizer series) [facility] Start: 03-05-2020 End: 03-05-2020 Treatment [facility] Start: 03-02-2020 End: 03-02-2020 Treatment 03/02/2020 Treatment Rehabilitation Emre Edwards, [address] [place] [address] [phone] Katharine Lopes PTA [facility] Start: 02-26-2020 End: 02-26-2020 Treatment 02/26/2020 Treatment Rehabilitation Emre Edwards, DO [address] [place] [address] [phone] Judd Faye, PT [facility] Start: 02-24-2020 End: 02-24-2020 Treatment 02/24/2020 Treatment Rehabilitation Emre Edwards, DO [address] [place] [address] [phone] Katharine Lopes, [facility] Start: 02-19-2020 End: 02-19-2020 Treatment 02/19/2020 Treatment Rehabilitation Emre Edwards, DO [address] [place] [address] [phone] Dania Abdul [facility] Start: 02-17-2020 End: 02-17-2020 Treatment 02/17/2020 Treatment Rehabilitation Emre Edwards, DO [address] [place] [address] [phone] Dania Abdul [facility] Start: 02-13-2020 End: 02-13-2020 Treatment 02/13/2020 Treatment Rehabilitation Emre Edwards, [address] [place] [address] [phone] Dania Abdul [facility] Start: 02-05-2020 End: 02-05-2020 Treatment 02/05/2020 Treatment Rehabilitation Emre Edwards, DO [address] [place] [address] [phone] Adelita No [facility] Start: 12-09-2019 Influenza vaccination given Sequential Influenza Vaccine (#1) [facility] Start: 01-25-2019 DIABETES SCREEN DIABETES SCREEN [facility] Start: 12-22-2018 Tetanus vaccination Tetanus: Every 10yrs [facility] Start: 11-07-2018 Screening for malignant neoplasm of breast Mammogram [facility] Start: 05-21-2017 LIPID SCREEN LIPID SCREEN [facility] Start: 10-29-2015 Adult depression screening assessment DEPRESSION SCREENING [facility] Start: 2009 Administration of herpes zoster vaccine Zoster Vaccines (1 of 2) [facility] Start: 2009 Screening for malignant neoplasm of colon [facility] Start: 2009 SHINGRIX VACCINE (1 of 2) SHINGRIX VACCINE (1 of 2) [facility] Start: 12-23-2008 DTaP/Tdap/Td Vaccines (1 - Tdap) DTaP/Tdap/Td Vaccines (1 - Tdap) [facility] Start: 12-23-2008 Urine microalbumin profile DTAP,TDAP,TD (1 - Tdap) [facility] Start: 2004 COLOGUARD (FIT-DNA) COLOGUARD (FIT-DNA) [facility] Start: 2004 Colonoscopy COLONOSCOPY [facility] Start: 2004 COLORECTAL CANCER SCREENING COLORECTAL CANCER SCREENING [facility] Start: [address] COLONOGRAPHY [facility] Start: 2004 FECAL OCCULT BLOOD FECAL OCCULT BLOOD [facility] Start: 2004 SIGMOIDOSCOPY SIGMOIDOSCOPY [facility] Start: 01-27-2003 PNEUMOCOCCAL (2 - PCV) PNEUMOCOCCAL (2 - PCV) [facility] Start: 1980 Screening for malignant neoplasm of cervix HPV/Cotest [facility] Start: 1977 ANNUAL PCP TEAM CHRONIC DISEASE VISIT ANNUAL PCP TEAM CHRONIC DISEASE VISIT [facility] Start: 1977 Diabetes mellitus screening Diabetes Screening [facility] Start: 1977 Hepatitis C antibody, confirmatory test Hepatitis C Screening [facility] Start: 1977 Hepatitis C screening Hepatitis C Screening [facility] Start: 1977 HEPATITIS C SCREENING HEPATITIS C SCREENING [facility] Start: 1977 HIV SCREENING HIV SCREENING [facility] Start: 1977 SPIROMETRY SPIROMETRY [facility] Start: 1974 HIV screening HIV Screening [facility] Start: 1971 Adolescent depression screening assessment Depression Screening (PHQ9) [facility] Start: 1971 Depression screening using PHQ-9 (Patient Health Questionnaire 9) score Depression Screening (PHQ-2/9) [facility] Start: 1962 History and physical examination, annual for health maintenance Wellness Visit [facility] Start: 1960 MMR Vaccines (1 of 1 - Standard series) MMR Vaccines (1 of 1 - Standard series) [facility] Start: 1959 HIV screening HIV Screening [facility] Start: 1959 Screening for malignant neoplasm of cervix Pap Smear [facility] Start: 1959 Screening for malignant neoplasm of colon [facility] Start: 1959 Screening mammography Mammogram [facility] Start: 1959 Tetanus vaccination Tetanus: Every 10yrs [facility] Start: 1959 Yearly Adult Physical Yearly Adult Physical [facility] End: 03-08-2023 DBT Breast - bilateral [facility] Service Area Work Phone: Immunizations Immunization Date Immunization Notes Care Provider Manish cuello 01-22-2018 influenza, injectabl e, quadrivalent, preservative free Katrin Santamaria MD Work Phone: [facility] Work Phone: 01-04-2017 influenza, injectabl e, quadrivalent, contains preservative Katrin Santamaria MD Work Phone: [facility] Work Phone: 01-04-2017 influenza, injectabl e, quadrivalent, preservative free Katrin Santamaria MD Work Phone: [facility] Work Phone: 02-17-2016 influenza, injectabl e, quadrivalent, contains preservative Katrin Santamaria MD Work Phone: [facility] Work Phone: 01-29-2015 influenza, seasonal, injectable, preservative free Katrin Santamaria MD Work Phone: [facility] Work Phone: 02-11-2013 influenza, seasonal, injectable Katrin Santamaria MD Work Phone: [facility] Work Phone: 02-06-2012 influenza, seasonal, injectable Katrin Santamaria MD Work Phone: [facility] Work Phone: 01-27-2011 influenza, seasonal, injectable Katrin Santamaria MD Work Phone: [facility] Work Phone: 01-17-2010 influenza, seasonal, injectable Katrin Santamaria MD Work Phone: [facility] Work Phone: 03-22-2009 influenza, seasonal, injectable Katrin Santamaria MD Work Phone: [facility] Work Phone: 12-22-2008 tetanus and diphther ia toxoids, adsorbed, preservative free, for adult use (5 Lf of tetanus toxoid and 2 Lf of diphtheria toxoid) Katrin Santamaria MD Work Phone: [facility] Work Phone: 02-08-2006 influenza, seasonal, injectable Katrin Santamaria MD Work Phone: [facility] Work Phone: 01-27-2002 pneumococcal polysaccharide vaccine, 23 valent Katrin Santamaria MD Work Phone: [facility] Work Phone: Payers Date Payer Category Payer Unknown [id number] 2013 Unknown 2013 Unknown [id number] . [id number] 1959 Unknown [id number] . [id number] 1959 Unknown [id number] 2.16 [id number] 1959 Unknown [id number] 2.16. [id number] 1959 Unknown [id number] 2.16 [id number] 1959 Unknown [id number] 2.16 [id number] 1959 Unknown [id number] 2.16. [id number] 1959 Unknown [id number] 2.16. [id number] 1959 Unknown [id number] 2.16. [id number] 1959 Unknown [id number] 2.16. [id number] 1959 Unknown [id number] 2.16. [id number] 1959 Unknown [id number] 2.16. [id number] 1959 Unknown [id number] 2.16.8 [id number] 1959 Unknown [id number] 2.16.8 [id number] 1959 Unknown [id number] 2.16.84 [id number] 1959 Unknown [id number] 2.16.84 [id number] Social History Date Type Detail Facility Assertion Unknown if ever smoked [facility] Work Phone: Start: 02-03-2020 End: 02-26-2020 Tobacco smoking status ARIS Unknown if ever smoked [facility] Start: 1960 Sex Assigned At Not on file O [facility] Start: 06-10-2021 End: 03-24-2023 Exposure to SARS-CoV-2 (event) Not sure [facility] Start: 05-16-2021 [facility] Start: 04-26-2012 End: 05-16-2021 Tobacco use and exposure Smokeless tobacco non-user [facility] Start: 05-16-2021 End: 06-20-2021 Alcohol intake Ex-drinker (finding) [facility] Start: 04-26-2012 Tobacco smoking stat us NHIS Never smoked tobacco [facility] Start: 02-13-2020 Alcohol intake Current drinke r of alcohol (finding) [facility] Start: 04-26-2012 History SDOH Alcohol Comment occ [facility] Gender identity Not on file [facility] Work Phone: Medical Equipment Procedure Code Equipment Code Equipment Origin al Text Equipment Identifier Dates Liborio Bn Smpx P To bra Fd - [id number] Start: 06-22-2011 Functional Status Date Assessment Result Facility NEGATED: Highlighted row Functional performance Functional status health issues are not documented [facility] Work Phone: Mental Status Date Assessment Result Facility NEGATED: Highlighted row Cognitive function [Interpretation] Cognitive status health issues are not documented [facility] Work Phone: Clinical Notes 02-01-2021 to 03-24-2023 [...] Domínguez MD 03/24/23114 documented in this encounter [facility] Work Phone: 03-24-2023 Physician Emergency department Note [...] Hypertension, unspecified type Trent Domínguez MD 03/24/23114 [facility] Work Phone: 04-18-2022 Miscellaneous Notes LVM that [facility] sent a fax for refill. Pt is due for an appt. Enc to call to sched appt and let us know if she does need a refill. Patito Carranza RN documented in this encounter [facility] 11-11-2021 Note 31 Date of Procedure: 11/11/2021 Pathologist: [facility], Cytology Date Reported: 11/18/2021 Date Received: 11/11/2021 Submitting Physician: RAFAEL MITCHELL M.D. FINAL CYTOLOGICAL INTERPRETATION A. THINPREP PAP CERVICAL: Specimen Adequacy: SATISFACTORY FOR EVALUATION. Quality Indicator: Absence of endocervical/transformation zone component. General Categorization: NEGATIVE FOR INTRAEPITHELIAL LESION OR MALIGNANCY. HIGH RISK HPV TEST RESULT: NEGATIVE Reference Range: Negative Slide(s) initially screened by a Federal Judicial Law Clerk at [facility], [address] [place], [place] [id number] Testing for high-risk (HR) type of human [...] verified by the Molecular Diagnostic Laboratory at [facility]. The lab is certified under the Clinical Laboratory Amendments of 1988 (CLIA 88) as qualified to perform high complexity clinical laboratory testing. This specimen has been analyzed by the [employer] Imaging System ([employer] an automated imaging and review system, which assists the laboratory in evaluating cells on ThinPrep Pap tests. Following automated imaging, selected gomez from every slide were reviewed by a tree fruit and nut crops farmer and/or pathologist. Electronically Signed Out By [facility], Cytology//KMW By the signature on this report, the individual or group listed as making the Final Interpretation/Diagnosis certifies that they have reviewed this case. Diagnostic interpretation performed at [facility] [address] [place] [address] Educational Note: Cervical cytology is a screening [...] Source of Specimen A: THINPREP PAP CERVICAL [facility] Department of Pathology [id number] [place] [address] [facility] Diagnosis Primary osteoarthritis of left foot- Primary Primary osteoarthritis of right foot Bilateral foot pain [facility] Diagnosis Encounter for screening mammogram for malignant neoplasm of breast documented in this encounter [facility] Work Phone: Evaluation note* Diagnosis Encounter for screening mammogram for malignant neoplasm of breast documented in this encounter [facility] Work Phone: Evaluation note* Diagnosis Shortness of breath- Primary Hypertension, unspecified type documented in this encounter [facility] Work Phone: Summary Purpose Family History Unknown Family Member Name Dates Details No pertinent family history: Mother, Father(V49.89, Z78.9) Status:Active Advance Directives Documents on File Type Date Recorded Patient Paint Grinder Expl anation Advance Directives and Livin g Will 02/03/2020 10:41 AM Documents on File Type Date Recorded Patient Paint Grinder Expl anation Advance Directives and Livin g Will Advance Directives and Livin g Will 02/03/2020 10:41 AM History of Present Illness * Judd Faye, PT - 02/03/2020 10:45 AM EDT [facility] Evaluation Today's Date 02/03/2020 [...] her grandchildren Home environment: house (3 [address]) Alevism, social, or cultural considerations to be made [...] Visit 1: 10:55 - 11:35 Therapeutic Exercise (16849) Intervention provided written HEP handouts consisting of [...] with HEP in 2 weeks. CPT Code 66474 Low 13535 Moderate 58401 High History 0 1-2 3+ Comorbidities: asthma, [...] result in the following functiona l limitations: stone splitter, functional mobility, recreational activities, quality of life [...] pain control. Judd Faye PT State License, [id number] documented in this encounter* Adelita No, TRINITY - 02/05/2020 1:45 PM EDT [facility] DAILY TREATMENT NOTE Today's Date 02/05/2020 Patient Name: Vani sEcobar Date of : 1960 Current Visit #: [...] Visit 1: 10:55 - 11:35 Therapeutic Exercise (61399) Intervention provided written HEP handouts consisting of [...] HEP /technique Adelita No PTA STATE LICENSE, [id number] documented in this encounter* Dania Abdul PTA - 02/17/2020 11:30 AM EST [facility] DAILY TREATMENT NOTE Today's [...] 1127 OTHER Precautions/Contraindications *Mounika Notes Visit 3: 5070-2004 Therapeutic Exercise (07550) Intervention Scifit L1 x8min Parameters SKTC w/ [...] as tolerated Dania Abdul PTA STATE LICENSE, [id number] documented in this encounter* Neyda, Judd, PT - 02/26/2020 11:30 AM EST [facility] DAILY TREATMENT NOTE Today's [...] Visit 5: 11:34 - 12:12 Therapeutic Exercise (81041) Intervention Scifit L2 x 6min Parameters SKTC [...] and stability Judd Faye PT State License, [id number] documented in this encounter* Dania Abdul, SEWER SYSTEM SUPERVISOR - 02/24/2020 11:30 AM EST [facility] DAILY TREATMENT NOTE Today's [...] 1137 OTHER Precautions/Contraindications *Mounika Notes Visit 4: 3082-1041 Therapeutic Exercise (49100) Intervention Scifit L1 x8min Parameters SKTC w/ [...] as tolerated Dania Abdul PTA STATE LICENSE, [id number] documented in this encounter Assessments Diagnosis Radiculopathy, [...] BI mammo bilateral screening tomosynthesis Sahil Bella, FIRE MANAGEMENT OFFICER-SWEET PICKLE MAKER [address] [address] Referral ID Status Reason Start Date Expiration Date Visits Requested Visits Authorized [id number] Authorized Perform Procedure 01/12/2023 07/11/2023 1 1 Additional Source Comments INFORMATION SOURCE (unrecogn ized section and content) DATE CREATED AUTHOR AUTHOR'S ORGANIZ ATION 11/23/2018 [facility] DATE CREATED AUTHOR AUTHOR'S ORGANIZ ATION 11/28/2018 [facility] DATE CREATED AUTHOR AUTHOR'S ORGANIZ ATION 03/01/2020 [facility] DATE CREATED AUTHOR AUTHOR'S ORGANIZ ATION 05/31/2021 [facility] DATE CREATED AUTHOR AUTHOR'S ORGANIZ ATION 06/21/2021 [facility] DATE CREATED AUTHOR AUTHOR'S ORGANIZ ATION 11/12/2021 [facility] DATE CREATED AUTHOR AUTHOR'S ORGANIZ ATION 03/13/2022 [facility] DATE CREATED AUTHOR AUTHOR'S ORGANIZ ATION 03/15/2022 [facility] DATE CREATED AUTHOR AUTHOR'S ORGANIZ ATION 04/19/2022 [facility] DATE CREATED AUTHOR AUTHOR'S ORGANIZ ATION 01/19/2023 [facility] DATE CREATED AUTHOR AUTHOR'S ORGANIZ ATION 03/13/2023 [facility] Reason for Visit (unrecogniz ed section and content) Status Reason Specialty Diagnoses / Procedures Referred By Contact Referred To Contact Authorized Rehabilitation Diagnoses Radiculopathy, lumbar region Emre Edwards, DO [address] [place] [address] [address] Reason Comments Foot Pain Bilateral foot pain x years. Feet are stiff and sore. Pain radiates down her feet and up her ankles. She doesn't black pickler feet when walking so she falls a [...] mammo bilateral screening tomosynthesis Sahil Bella APRN-SON [address] [address] Referral ID Status Reason Start Date Expiration Date Visits Requested Visits Authorized [id number] Authorized Perform Procedure 01/12/2023 07/11/2023 1 1 Reason Comments Shortness of Breath Care Teams (unrecognized sec tion and content) Guest Services Assistant Relationship Specialty Start Date End Date Cee Hernandez MD [address] [place] [address] PCP - General Family Medicine 01/27/20 Guest Services Assistant Relationship Specialty Start Date End Date Cee Hernandez MD PCP - General Family Practice 10/03/16 Guest Services Assistant Relationship Specialty Start Date End Date Cee Hernandez MD PCP - General Family Medicine 10/03/16 Guest Services Assistant Relationship Specialty Start Date End Date [facility]il [facility] [address] [address] PCP - General Family Medicine 03/08/23 Guest Services Assistant Relationship Specialty Start Date End Date Sahil Bella APRNSWEET PICKLE MAKER [address] [address] PCP - General Family Medicine 03/08/23 Guest Services Assistant Relationship Specialty Start Date End Date [facility] [address] [id number] PCP - General Family Medicine 03/08/23 Source Comments (unrecognize d section and content) In the event this informatio n is protected by the Federal Confidentiality of Alcohol and Drug Abuse Patient Records regulations: The Federal rules restrict any use of the information to criminally investigate or prosecute any alcohol or drug abuse patient.[facility] the event this information is protected by the Federal Confidentiality of Alcohol and Drug Abuse Patient Records regulations: The Federal rules restrict any use of the information to criminally investigate or prosecute any alcohol or drug abuse patient.[facility] the event this information is protected by the Federal Confidentiality of Alcohol and Drug Abuse Patient Records regulations: The Federal rules restrict any use of the information to criminally investigate or prosecute any alcohol or drug abuse patient.[facility] FOR RECORDS PERTAINING TO PATIENTS WHO ARE [...] BE BASED ON THE PRIMARY CLINICAL RECORDS. [facility] [employer] [facility]. provides no warranty or guarantee of the accuracy or completeness of information in this document.
== END | disposition home or self-care (01) ==
PROVIDERS: PCP Nurse Practitioner Family; Referring Provider Nurse Practitioner Family; Visit Provider Nurse Practitioner Family
DX: N39.0 Urinary tract infection, site not specified (principal)
CPT/HCPCS: 87077; 87086; 87088; 87186

== ENCOUNTER → 2023-12-26 | Outpatient (CLI) | payer BC, SELFPAY ==
--- NOTE | 2023-12-26 13:21 | ART_ITS ---
Reason For Study: Absent Pedal Pulses Procedure A bilateral lower extremity continuous wave Doppler with analog waveform analysis and ankle brachial indexes. Left Segmental Pressures Left brachial= 184mmHg. Left posterior tibial artery = 230mmHg. Left dorsalis pedis artery = 226mmHg. The left dorsalis pedis waveforms are triphasic. The left posterior tibial artery waveforms are triphasic. Right Segmental Pressures Right brachial= 170mmHg. Right posterior tibial artery = 229mmHg. Right dorsalis pedis artery = 214mmHg. The right dorsalis pedis waveforms are triphasic. The right posterior tibial artery waveforms are triphasic. Indices The right ankle brachial index by the dorsalis pedis is 1.16. The right ankle brachial index by the posterior tibial artery is 1.24. The left ankle brachial index by the dorsalis pedis is 1.23. The left ankle brachial index by the posterior tibial artery is 1.25. VL/Ankle Brachial Index Interpretation Summary Right MYNOR 1.24, normal. Doppler/PVR waveforms of the right ankle normal at rest . Left MYNOR 1.25, normal. Doppler/PVR waveforms of the left ankle normal at rest. Ordering Physician: Deon Mendoza Referring Physician: SAHIL BELLA TAPE EDITOR-C Performed By: Berenice Rodriguez RVT and Student
--- NOTE | 2023-12-26 13:30 | RAD_ITS ---
STUDY: X-RAY - LEFT ANKLE REASON FOR EXAM: Female, 63 years old. Pain. TECHNIQUE: 3 view(s) of the ankle. COMPARISON: None. FINDINGS: Osteopenia. Normal visualized distal tibia and fibula. Normal medial and lateral malleoli. Normal tibiotalar articulation and ankle mortise. Moderate arthrosis of the midfoot. Large inferior calcaneal spur. Mild diffuse soft tissue swelling. RAD/Ankle min 3 Views IMPRESSION: Osteopenia, calcaneal spur, moderate arthrosis of the midfoot and diffuse soft tissue swelling. Electronically Signed: Anthony Clayton MD at 14:28 EDT ,
--- NOTE | 2023-12-26 13:30 | RAD_ITS ---
STUDY: X-RAY - RIGHT ANKLE REASON FOR EXAM: Female, 63 years old. Bilateral ankle pain. TECHNIQUE: 3 view(s) of the ankle. COMPARISON: None. FINDINGS: Osteopenia. Normal visualized distal tibia and fibula. Normal medial and lateral malleoli. Normal tibiotalar articulation and ankle mortise. Moderate arthrosis of the midfoot. Large inferior calcaneal spur. Mild diffuse soft tissue swelling. RAD/Ankle min 3 Views IMPRESSION: Osteopenia, calcaneal spur, moderate arthrosis of the midfoot and diffuse soft tissue swelling. Electronically Signed: Anthony Clayton MD at 14:27 EDT ,
--- NOTE | 2023-12-26 13:30 | RAD_ITS ---
STUDY: X-RAY - RIGHT FOOT CLINICAL: Female, 63 years old. Bilateral foot pain. TECHNIQUE: 3 view(s) of the foot. COMPARISON: None. FINDINGS: Osteopenia. Large inferior calcaneal spur. Moderate arthrosis of the midfoot. Moderate arthrosis of the TMT joints. Moderate arthrosis of the MTP and IP joints with hammertoe deformities. Diffuse soft tissue swelling. RAD/Foot min 3 Views IMPRESSION: Osteopenia, large inferior calcaneal spur, midfoot arthrosis, moderate arthrosis of the TMT joints, moderate arthrosis of the MTP and IP joints. Hammertoe deformities is soft tissue swelling. Electronically Signed: Anthony Clayton MD at 14:30 EDT ,
--- NOTE | 2023-12-26 13:30 | RAD_ITS ---
STUDY: X-RAY - LEFT FOOT CLINICAL: Female, 63 years old. Pain. TECHNIQUE: 3 view(s) of the foot. COMPARISON: None. FINDINGS: Osteopenia. Large inferior calcaneal spur. Moderate arthrosis of the midfoot. Moderate arthrosis of the TMT joints. Moderate arthrosis of the MTP and IP joints with hammertoe deformities. Diffuse soft tissue swelling. RAD/Foot min 3 Views IMPRESSION: Osteopenia, large inferior calcaneal spur, midfoot arthrosis, moderate arthrosis of the TMT joints, moderate arthrosis of the MTP and IP joints. Hammertoe deformities is soft tissue swelling. Electronically Signed: Anthony Clayton MD at 14:29 EDT ,
== END | disposition home or self-care (01) ==
LOC: CVS 13:16
PROVIDERS: PCP Nurse Practitioner Family; Referring Provider Psychiatry & Neurology Neurology; Visit Provider Psychiatry & Neurology Neurology
DX: M25.571 Pain in right ankle and joints of right foot (principal); M25.572 Pain in left ankle and joints of left foot
CPT/HCPCS: 73610; 73630; 93922

== ENCOUNTER → 2024-11-10 | Outpatient (CLI) | payer MEDICARE, BC, SELFPAY ==
[2024-11-10 15:29] LABS: Hematocrit 39.6 % (37-47); Hemoglobin 13.3 g/dL (12.0-15.0); Mean Corp Hgb Conc 33.6 g/dL (32-36); Mean Corpuscular Volume 93.6 fL (81-99); Mean Platelet Vol. 11.1 fl (6.2-12.0); Platelet Count 248 K/mm3 (150-450); RBC Distribution Width CV 13.2 % (11.6-14.6); RBC Distribution Width SD 45.3 fl (35.1-43.9); Red Blood Count 4.23 M/mm3 (4.2-5.4); White Blood Count 7.0 K/mm3 (4.4-11.0)
[2024-11-10 16:05] LABS: AST(SGOT) 20 U/L (<=31); Alanine Aminotransfer ALT/SGPT 17 U/L (<=34); Albumin, Serum 4.5 g/dL (3.4-4.8); Alkaline Phosphatase 81 U/L (35-104); Anion Gap 13 (5-15); BUN 19 mg/dL (4-19); BUN/Creat Ratio 23.6 RATIO (10-20); Calcium,Total 9.9 mg/dL (7.6-11.0); Carbon Dioxide 25.3 mmol/L (21.0-32.0); Chloride 99 mmol/L (98-108); Globulin 3.0 g/dL (2.2-4.2); Glucose 107 mg/dL (70-99); Potassium 4.8 mmol/L (3.3-5.1)
[2024-11-10 16:17] LABS: Carbamazepine (Tegretol) 8.4 ug/mL (4.0-12.0)
--- OUTSIDE RECORDS SUMMARY | 2024-11-10 22:12 | XMS RPT_ITS | CCD ---
Author Organization [facility] Care Team Providers Care Wood Planer Name Role Phone Ivanauskas, Saulius Unavailable Unavailable Ivanauskas, Saulius Unavailable Unavailable David, Don A Unavailable Unavailable Kate Vail Unavailable Unavailable David Don A Unavailable Unavailable Don Hernandez Primary Care Provider EMRE RAMIREZ Admitting Unavailable SHERRON FAYE Attending Unavailable EMRE RAMIREZ Referring Unavailable DON HERNANDEZ Primary Care Unavailable EMRE RAMIREZ Admitting Unavailable LINDA NO Attending Unavailable EMRE RAMIREZ Referring Unavailable DAVIDDON MCDONNELL Primary Care Unavailable EMRE RAMIREZ Admitting Unavailable DANIA ABDUL Attending Unavailable EMRE RAMIREZ Referring Unavailable DON HERNANDEZ Primary Care Unavailable EMRE RAMIREZ Admitting Unavailable DANIA ABDUL Attending Unavailable EMRE RAMIREZ Referring Unavailable DON HERNANDEZ Primary Care Unavailable EMRE RAMIREZ Admitting Unavailable SHERRON FAYE Attending Unavailable EMRE RAMIREZ Referring Unavailable DON HERNANDEZ Primary Care Unavailable Don Hernandez MD Primary Care Provider [phone] CHARLY REYES Attending Unavailable DON HERNANDEZ Primary Care Unavailable ERIC CHARLY SABRY Admitting Unavailable SHEEBA REYESA CHARLINERY Referring Unavailable DON HERNANDEZ Primary Care Unavailable SHEEBA REYESA SABRY Admitting Unavailable ERIC CHARLY SABRY Referring Unavailable DON HERNANDEZ Primary Care Unavailable CHARLY REYES Attending Unavailable DON HERNANDEZ Primary Care Unavailable Don Hernandez MD Primary Care Provider Don Hernandez Unavailable Unavailable Unavailable Don Hernandez Primary Care Unavailable BUSH, Dr. GENA CLARKE Referring Unav ailable BUSH, Dr. GENA CLARKE Attending Unav ailable David, Don Payan Primary Care Unavailable BUSH, Dr. GENA CLARKE Attending Unav ailable Bush, Dr. Avery Attending Unavailable David, Dr. Don Payan Primary Care Unavail able Bush, Dr. Avery Referring Unavailable David, Dr. Don Payan Primary Care Unavail able Bush, Dr. Avery Referring Unavailable Bush, Dr. Avery Attending Unavailable David , Don Payan Primary Care Provider David, Dr. Ochoa Primary Care Provider [phone] David, Dr. Ochoa Referring Provider Dr. Deon Mendoza Attending Provider David, Dr. Ochoa Primary Care Provider Unavaila ble David, Dr. Ochoa Referring Provider Unavailable Dr. Deon Mendoza Attending Provider [phone] Jena GEM CUTTER-PAYROLL ACCOUNTING SPECIALIST, Sahil Primary Care Provider [phone] JENA, SAHIL Primary Care Unavailable DON HERNANDEZ Primary Care Unavailable Jena GEM CUTTER-PAYROLL ACCOUNTING SPECIALIST, Sahil Primary Care Provider JENA, SAHIL Primary Care Unavailable Deon Mendoza Attending Unavailable Jena, Sahil Referring Unavailable Jena, Sahil Primary Care Unavailable Deon Mendoza Referring Unavailable Jena, Sahil Primary Care Unavailable Adair Rowe Attending Unavailable Deon Mendoza Attending Unavailable Baddour, Deon Referring Unavailable Jena, Sahil Primary Care Unavailable Deon Mendoza Attending Unavailable Deon Mendoza Referring Unavailable Jena, Sahil Primary Care Unavailable Deon Mendoza Attending Unavailable Jena, Sahil Primary Care Unavailable Don Hernandez Referring Unavailable Deon Mendoza Attending Unavailable Jena, Sahil Primary Care Unavailable Jena, Sahil Referring Unavailable Jena RAILROAD MECHANIC-C, Sahil Primary Care Provider Jena RAILROAD MECHANIC-C, Sahil Referring Provider Dr. Deon Mendoza MD Attending Provider [phone] Allergies Allergy Classification Reported Allergen(s) Allergy Type Date of Onset Reaction(s) Facility (11 sources) iodine; Translations: [iodine] Drug Allergy 2 Itching, Swelling [facility] Repository (2 sources) Shellfish; Translations: [SHELLFISH DERIVED] Propensity to adverse reactions to drug 2 Swelling [facility] (2 sources) Ct: Iodinated Contrast- Oral And Iv Dye; Translations: [CT: IODINATED CONTRAST- ORAL AND IV DYE] Propensity to adverse reactions to drug 2 Itching [facility] (3 sources) Lobster - dietary Food Allergy 2 Swelling [facility] (3 sources) Seasonal allergy Propensity to adverse reactions 9 Intolerance [facility] (4 sources) Tomatoes Food Allergy 4 Hives [facility] (1 source) Mold Extract Drug Allergy [facility] [employer] Work Phone: (1 source) ALLERGIES NOT ON FILE; Translations: [ALLERGIES NOT ON FILE] Propensity to adverse reactions (disorder) [facility] Repository (1 source) Povidone-Iodine Drug Allergy 5 [facility] Repository (1 source) Povidone-Iodine Drug Allergy 5 Itching [facility] Medications Current Medications Medication Drug Class(es) Dates Sig (Normalized) Sig (Original) cholecalciferol 0.025 mg oral capsule (1 source) Vitamin D Start: 12-03-2023 take 1 capsule by mouth once daily Cholecalciferol (Vitamin D3) 25 mcg (1,000 unit) capsule Active 25 ug PO DAILY December 03, 2023 12:00am clotrimazole-betameth dip-zinc 1-0.05-20 % Cmpk (2 sources) clotrimazole-bet amet h dip-zinc 1-0.05-20 % Cmpk Apply topically . 0 Active Multivitamin (Multiple Vitamins) tablet (3 sources) Start: 11-28-2021 Multivitamin (Multiple Vitamins) tablet Active 1 {tbl} PO DAILY November 28, 2021 12:00am Start: 11-28-2021 take 1 tablet by mile th once daily Multivitamin (Multiple Vitamins) tablet Active 1 TABLET PO DAILY November 28, 2021 12:00am Start: 11-28-2021 take 1 tablet by mile th once daily Multivitamin (Multiple Vitamins) tablet Active 1 TABLET PO DAILY November 27, 2021 11:00pm multivitamin (multivitamin) per tablet (1 source) take 1 tablet by mouth once daily multivitamin (multivitamin) per tablet Take 1 tablet by mouth daily . 0 Active [place] 3-Goa-Zaq-Fish Oil (Fish Oil) 300-1,000 mg capsule,delayed release(DR/EC) (1 source) Start: 12-03-2023 [place] 5-Ajg-Kfs-Fish Oil (Fish Oil) 300-1,000 mg capsule,delayed release(DR/EC) Active 1 NMA PO DAILY December 03, 2023 12:00am Vitamin B 12 (9 sources) Vitamin B12 Start: 05-16-2022 Cyanocobalamin (Vitamin B-12) Active 1000 MCG .Route May 16, 2022 1:00am 1,000 mcg monthly injection through Dr Lemons office Start: 05-16-2022 Cyanocobalamin (Vitamin B-12) Active 1000 MCG .Route May 16, 2022 12:00am 1,000 mcg monthly injection through Dr Lemons office Start: 01-30-2019 cyanocobalamin 1,000 mcg/mL soln INJECT 1 ML INTO THE MUSCLE ONCE EVERY MONTH DIRECTED. DISCARD AFTER 28 DAYS 3 mL 4 01/30/2019 Active Start: 03-19-2018 Cyanocobalamin 1000 MCG/ML Injection Solution Quantity: 3 Refills: 0 Ordered: 19-Mar-2018 DO Start : 19-Mar-2018 Active Start: 03-19-2018 Cyanocobalamin 1000 MCG/ML Injection Solution Quantity: 3 Refills: 0 Start : 19-Mar-2018 Active cyanocobalamin, vitamin B-12, (B-12 Compliance) 1,000 mcg/mL Kit Inject 1,000 mcg as directed every 28 days . 0 Active Comment on above: INJECT 1 ML INTO THE MUSCLE ONCE EVERY M ONTH DIRECTED. DISCARD AFTER 28 DAYS Vitamin B12 1,000 mcg/mL (6 sources) Start: inject 1500 ug by intramuscular injection every month Vitamin B12 1,000 mcg/mL Active 1500 ug IM MONTHLY 9 November 10, 2024 11:59am Dispense: nine 1000 mcg vials To be administered at [facility]. Start: 06-02-2024 End: 11-10-2024 inject 1500 ug by intramuscular injection every month Vitamin B12 1,000 mcg/mL Discontinued 1500 ug IM MONTHLY 6 1 June 02, 2024 4:48pm November 10, 2024 12:05pm Dispense: Six 1000 mcg vials To be administered at [facility]. Start: 05-26-2024 End: 06-02-2024 inject 1500 ug by intramuscular injection every month Vitamin B12 1,000 mcg/mL Discontinued 1500 ug IM MONTHLY 6 May 26, 2024 2:46pm June 02, 2024 4:48pm Dispense: Six 1000 mcg vials To be administered at pharmacy. Start: 05-26-2024 End: 05-26-2024 inject 1500 ug by intramuscular injection every month Vitamin B12 1,000 mcg/mL Discontinued 1500 ug IM MONTHLY 6 May 26, 2024 2:35pm May 26, 2024 2:46pm Dispense: Six 1000 mcg vials To be administered at pharmacy. Start: 03-20-2024 End: 05-26-2024 inject 1000 ug by intramuscular injection every month Vitamin B12 1,000 mcg/mL Discontinued 1000 ug IM MONTHLY 3 0 March 20, 2024 5:42pm May 26, 2024 2:36pm Dispense: Three 1000 mcg vials To be administered at pharmacy. Start: 01-03-2024 End: 03-20-2024 inject 1000 ug by intramuscular injection every month Vitamin B12 1,000 mcg/mL Discontinued 1000 ug IM MONTHLY 3 0 January 03, 2024 12:00am March 20, 2024 5:43pm Dispense: Three 1000 mcg vials To be administered at outpatient clinic. Completed/Discontinued Medications Medication Drug Class(es) Dates Sig (Normalized) Sig (Original) Bupivacaine (2 sources) Amide Local Anesthetic Start: 05-16-2021 End: 05-17-2021 bupivacaine HCl (MARCAINE) 0.5 % (5 mg/mL) injection 1 mL 12 hr carBAMazepine 400 mg extended release oral tablet (20 sources) Mood Stabilizer Start: 06-01-2017 End: 11-10-2024 take 1 tablet by mouth three times daily Carbamazepine (Tegretol Xr) 400 mg tablet extended release 12 hr Discontinued 400 mg PO THREE TIMES A DAY 270 0 November 03, 2024 4:08pm November 10, 2024 12:05pm Start: 04-04-2017 TEGretol-XR 40 0 MG Oral Tablet Extended Release 12 Hour Quantity: 270 Refills: 0 Ordered: 03-Apr-2018 DO Start : 04-Apr-2017 Active Start: 04-04-2017 TEGretol-XR 40 0 MG Oral Tablet Extended Release 12 Hour Quantity: 270 Refills: 0 Start : 04-Apr-2017 Active take 1 tablet by mile twice daily carBAMazepine (TEGretol XR) 400 MG 12 hr tablet Take 400 mg by mouth 2 (two) times a day . 0 Active Comment on above: Take 1 tablet by mile three times daily. TAKE 1 TABLET THREE TIMES A DAY cetirizine hydrochloride 10 mg oral tablet (3 sources) Histamine-1 Receptor Antagonist Start: take 1 tablet by mouth once daily cetirizine (ZYRTEC) 10 mg tablet Take 1 tablet by mouth once daily. 90 tablet 3 02/13/2020 Active Comment on above: Take 1 tablet by mile once daily. Cyanocobalamin (Vitamin B-12) 100 mcg/mL solution (1 source) Start: 023 End: 024 Cyanocobalamin (Vitamin B-12) 100 mcg/mL solution Discontinued 1000 ug .Route May 16, 2022 1:00am December 03, 2023 2:58pm 1,000 mcg monthly injection through Dr Lemons office cyclobenzaprine hydrochloride 5 mg oral tablet (3 sources) Muscle Relaxant Start: 016 take 1 tablet by mouth every eight hours as needed for pain cyclobenzaprine (FLEXERIL) 5 mg tablet Indications: Strain of muscle, fascia and tendon of lower back, initial encounter Take 1 tablet by mouth every 8 hours as needed for Muscle Spasm (or pain). 40 tablet 0 04/21/2015 Active Comment on above: Take 1 tablet by mile every 8 hours as needed for Muscle Spasm (or pain). DULoxetine 60 mg delayed release oral capsule (2 sources) Serotonin and Norepinephrine Reuptake Inhibitor Start: 025 End: 025 take 1 capsule by mouth at bedtime Duloxetine 30 mg capsule,delayed release(DR/EC) Discontinued 30 mg PO AT BEDTIME 7 0 May 26, 2024 1:00am June 02, 2024 5:05pm Start: 05-26-2024 End: 06-02-2024 take 1 capsule by mouth once daily at bedtime Duloxetine 60 mg capsule,delayed release(DR/EC) Discontinued 60 mg PO AT BEDTIME 30 5 May 26, 2024 1:00am June 02, 2024 5:05pm Begin after completing one week course of duloxetine 30mg nightly. estradiol 0.1 mg/ml vaginal cream (6 sources) Estrogen Start: 07-12-2021 Estradiol 0.1 MG/GM Vaginal Cream Quantity: 0 Refills: 0 Ordered: 12-Jul-2021 DO Start : 12-Jul-2021 Active Start: 09-08-2020 estradiol (EST RACE) 0.01 % (0.1 mg/gram) vaginal cream INSERT 2 GRAMS VAGINALLY ONE TO TWO TIMES WEEKLY DISCUSSED 42.5 g 3 09/08/2020 Active estradioL (ESTRA CE) 0.01 % (0.1 mg/gram) vaginal cream Insert 2 g into the vagina daily . 0 Active Comment on above: INSERT 2 GRAMS VAGIN ALLY ONE TO TWO TIMES WEEKLY DISCUSSED flurbiprofen 100 mg oral tablet (2 sources) Nonsteroidal Anti-inflammatory Drug Start: 01-09-20 24 End: 06-02-19 25 take 1 tablet by mouth three times daily as needed for pain Flurbiprofen 100 mg tablet Discontinued 100 mg PO THREE TIMES A DAY as needed for pain 90 5 May 26, 2024 2:33pm June 02, 2024 5:05pm ibuprofen 800 mg oral tablet (4 sources) Nonsteroidal Anti-inflammatory Drug Start: 11-16-19 19 End: 11-22-19 19 take 1 tablet by mouth three times daily at mealtime as needed Ibuprofen 800 MG Oral Tablet TAKE 1 TABLET 3 TIMES DAILY WITH FOOD NEEDED. Quantity: 15 Refills: 0 Kate Vail DO Start : 15-Nov-2018 End : 20-Nov-2018 Active Start: 04-21-2015 take 1 tablet by mile th every eight hours as needed for pain ibuprofen (MOTRIN) 800 mg tablet Indications: Strain of muscle, fascia and tendon of lower back, initial encounter Take 1 tablet by mouth every 8 hours as needed for Pain. 40 tablet 0 04/21/2015 Active Comment on above: Take 1 tablet by mile th every 8 hours as needed for Pain. magnesium oxide 400 mg oral tablet (3 sources) Start: 01-19-20 16 magnesium oxide (MAG-OX) 400 mg tablet Take 1 tablet by mouth as needed. 30 tablet 6 01/19/2016 Active Comment on above: Take 1 tablet by mile th as needed. meclizine hydrochloride 12.5 mg oral tablet (3 sources) Antiemetic Start: 10-19-19 19 take 2 tablets by mouth three times daily meclizine (ANTIVERT) 12.5 mg tab Take 2 tablets by mouth three times daily. 15 tablet 3 10/18/2018 Active Comment on above: Take 2 tablets by mo [facility] three times daily. meloxicam 15 mg oral tablet (1 source) Nonsteroidal Anti-inflammatory Drug Start: 12-03-19 24 End: 01-09-20 24 take 1 tablet by mouth once daily Meloxicam 15 mg tablet Discontinued 15 mg PO DAILY December 03, 2023 12:00am January 09, 2024 1:42pm methocarbamol 500 mg oral tablet (3 sources) Muscle Relaxant Start: 06-01-19 18 take 1 tablet by mouth every eight hours as needed methocarbamol (ROBAXIN) 500 mg tablet Take 1 tablet by mouth three times daily as needed. 90 tablet 0 06/01/2017 Active Comment on above: Take 1 tablet by mile three times daily as needed. mometasone furoate 1 mg/ml topical cream (5 sources) Corticosteroid Start: 04-15-19 22 mometasone (ELOCON) 0.1 % cream Indications: Vulvar dermatitis Apply to affected area as directed. Twice daily for 2 weeks, daily for 2 weeks, every other day for 2 weeks then twice weekly 45 g 2 04/15/2021 Active mometasone (ELOC ON) 0.1 % cream Apply topically daily . 0 Active Comment on above: Apply to affected ar ea as directed. Twice daily for 2 weeks, daily for 2 weeks, every other day for 2 weeks then twice weekly Multi Complete Oral Capsule (1 source) Multi Complete O ral Capsule Quantity: 0 Refills: 0 Ordered: 11-Nov-2021 DO Active nystatin 137597 unt/ml topical cream (3 sources) Polyene Antifungal Start: 02-13-2020 nystatin (MYCOSTATIN) cream Apply 1 application to affected area twice daily. 30 g 3 02/13/2020 Active Comment on above: Apply 1 application to affected area twice daily. 1 ml triamcinolone acetonide 40 mg/ml injection (2 sources) Corticosteroid Start: 05-16-2021 End: 05-17-2021 triamcinolone acetonide (KENALOG-40) injection 40 mg Vitamin D-3 TABS (1 source) Vitamin D-3 TABS Quantity: 0 Refills: 0 Ordered: 11-Nov-2021 DO Active Problems Active Problems Problem Classification Problem Date Documented Date Episodic/Chronic Asthma (3 sources) Asthma; Translations: [Unspecified asthma, uncomplicated] Onset: 05-21-2013 05-21-2013 Chronic Diabetes mellitus without complication (4 sources) Hyperglycemia, unspecified; Translations: [Hyperglycemia] Onset: 12-28-2023 Episodic Epilepsy; convulsions (11 sources) Epilepsy; Translations: [Epilepsy, unspecified, not intractable, without status epilepticus] Onset: 01-12-2023 11-29-2021 Chronic Essential hypertension (1 source) Hypertensive disorder; Translations: [Essential (primary) hypertension] 03-24-2023 Chronic Osteoarthritis (6 sources) Osteoarthritis of left foot; Translations: [Primary osteoarthritis, left ankle and foot] Onset: 01-17-2024 Chronic Other aftercare (2 sources) Drug therapy finding; Translations: [Encounter for therapeutic drug level monitoring] 05-16-2022 Episodic Other aftercare (1 source) Long-term current use of anticonvulsant; Translations: [Encounter for therapeutic drug level monitoring] 05-16-2022 Episodic Other connective tissue disease (2 sources) Pain in both feet; Translations: [Pain in right foot] Episodic Other connective tissue disease (1 source) Pain in right foot; Translations: [Pain in right foot] Onset: 10-28-2024 Episodic Other connective tissue disease (1 source) Pain in left foot; Translations: [Pain in left foot] Onset: 10-28-2024 Episodic Other connective tissue disease (1 source) Foot pain; Translations: [Pain in right foot] 12-03-2023 Episodic Other female genital disorders (1 source) Enlarged uterus; Translations: [Hypertrophy of uterus] Episodic Other lower respiratory disease (1 source) Dyspnea; Translations: [Shortness of breath] 03-24-2023 Episodic Other nervous system disorders (3 sources) Polyneuropathy; Translations: [Polyneuropathy, unspecified] 11-28-2021 Chronic Other nervous system disorders (3 sources) Polyneuropathy, unspecified; Translations: [Polyneuropathy, unspecified] Onset: 12-28-2023 Chronic Other non-traumatic joint disorders (1 source) Ankle pain; Translations: [Pain in right ankle and joints of right foot] 12-03-2023 Episodic Other nutritional; endocrine; and metabolic disorders (3 sources) Obesity; Translations: [Obesity, unspecified] 06-30-2013 Chronic Other nutritional; endocrine; and metabolic disorders (3 sources) Body mass index 40+ - severely obese; Translations: [Morbid (severe) obesity due to excess calories] Onset: 10-18-2018 10-18-2018 Chronic Other and delivery including normal (1 source) Delivery normal; Translations: [Normal delivery] Episodic Comment on above: 11/1979_FT_Female_7# 3oz01/1982_wes_Male_9# oz01/1987_FT_Male_7# [id number]/1989_FT_Male_7# 8oz; Other screening for suspected conditions (not mental disorders or infectious disease) (13 sources) Patient encounter status; Translations: [Other screening mammogram] Onset: 11-11-2021 Episodic Residual codes; unclassified (1 source) Menopause present; Translations: [Symptomatic menopausal or female climacteric states] Episodic Residual codes; unclassified (1 source) Past history of procedure; Translations: [Other specified personal history presenting hazards to health] Episodic Comment on above: 01/2021; Residual codes; unclassified (1 source) History of with abortive outcome; Translations: [Personal history of other genital system and obstetric disorders] Episodic Comment on above: X1; Residual codes; unclassified (1 source) H/O: miscarriage; Translations: [Personal history of other genital system and obstetric disorders] Episodic Comment on above: X2; Spondylosis; intervertebral disc disorders; other back problems (3 sources) Degeneration of lumbosacral intervertebral disc; Translations: [Other intervertebral disc degeneration, lumbosacral region] Onset: 05-11-2009 10-18-2018 Chronic Sprains and strains (2 sources) Strain of muscle of upper limb; Translations: [Strain of biceps brachii muscle and/or tendon] Episodic Unclassified (1 source) Patient encounter status 05-28-2024 Past or Other Problems Problem Classification Problem Date Documented Da te Episodic/Chronic Epilepsy; convulsions (3 sources) Seizure; Translations: [Unspecified convulsions] Onset: 05-21-2013 05-21-2013 Episodic Other and unspecified benign neoplasm (3 sources) Lipoma (clinical); Translations: [Benign lipomatous neoplasm, unspecified] Onset: 03-14-2004 10-18-2018 Episodic Other female genital disorders (4 sources) Hypertrophy of uterus; Translations: [Hypertrophy of uterus] Onset: 11-15-2021 Episodic Other non-traumatic joint disorders (1 source) Pain in right ankle and joints of right foot; Translations: [Pain in right ankle and joints of right foot] Onset: 01-17-2024 Episodic Other non-traumatic joint disorders (1 source) Pain in left ankle and joints of left foot; Translations: [Pain in left ankle and joints of left foot] Onset: 01-17-2024 Episodic Residual codes; unclassified (1 source) Asymptomatic menopausal state; Translations: [Asymptomatic menopausal state] Onset: 11-15-2021 Episodic Spondylosis; intervertebral disc disorders; other back problems (17 sources) Lumbar radiculopathy; Translations: [Sciatica] Onset: 08-11-2008 02-03-2020 Episodic Unclassified (1 source) Finding of menstrual bleeding; Translations: [Menstruation] Comment on above: Onset age 11 years; Results Test Name Value Interpretation Reference Range Facility Neurology Visit Reporton Neurology Visit Report [facility] [address] [place] [address], [address] [place] [address] OFFICE VISIT Date of Service: 06/18/24 MR#: [id number] Acct: [id number] Name: VANI ESCOBAR Rep #: [id number] : 1960 Provider: Dr. Deon madden MD Age/Sex: 64/F Location: [facility] Status: Signed [facility] Chief Complaint: Details: Interim History: Vani presents for follow-up visit. She has a history of hypercholesterolemia, dyslexia and epilepsy. She began having seizures when she was 14 years old. At that time, her seizures were characterized by episodes of myoclonus occurring in the mornings that, at times, were preceded by an aura of tingling in her lower back. She was initially treated with phenytoin then switched to phenobarbital and then in the later was switched to Tegretol. She made an attempt to discontinue anticonvulsant therapy in the and had a generalized seizure with a preceding prodrome of feeling unwell for 2 days prior to the seizure. She exhibited clonic activity and tongue biting. She did not have urinary incontinence. Tegretol was resumed. In the , she had another generalized seizure that she stated was due to a side effect of Clomid which was briefly prescribed at that time. She has had no further seizures since this generalized seizure that occurred in the . She has chronic bilateral hearing loss of unclear etiology. 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 She was adopted; she does not know her history or family history. She reported that an EEG in years past was abnormal (an official report is presently not available). She stated that a head MRI performed in years past was normal (an official report is presently not available). She had previously seen a neurologist at the [facility]. An attempt to take a generic form of Tegretol-XR in the past was not well-tolerated due to a side effect of dizziness and occurrence of seizure auras and she has since resumed namebrand Tegretol XR and is tolerating this well and has had no further side effects. She had previously seen a chimney construction supervisor for bilateral foot pain (the patient is unsure of a specific diagnosis that was given). She is not experiencing neuropathic (sharp or burning) pain in the feet. She had a fall and fractured her left elbow in the . She reported having degenerative joint changes in the knees. Her bone density test in 2022 was normal. Her pain in the feet (which is prominent in the heels) has been worse at night. Flurbiprofen caused dyspepsia and was discontinued. Duloxetine caused nausea and sedation and was discontinued. She is using an [id number] topical cream and this has been of benefit for the pain in her feet. She has had pain in the ankles. She has intermittent low back pain that occurs with extended standing. Her lumbar MRI reveals mild multilevel degenerative disc disease. EMG/nerve conduction studies of the lower extremities in April 2023 revealed bilateral sural neuropathies (however the exam was somewhat compromised by the patient's body habitus). A skin biopsy to assess for small fiber neuropathy (January 2024) revealed normal epidermal nerve fiber density at the left calf and significantly reduced epidermal nerve fiber density consistent with small fiber neuropathy in the left foot. A laboratory evaluation for polyneuropathy revealed a B12 level near the low end of the normal range, slightly elevated hemoglobin A1c and slightly elevated serum glucose. She has had fatigue. B12 1000 mcg injections have been of moderate benefit for her fatigue. She is receiving physical therapy for low back pain. X-rays of the feet reveal osteopenia and degenerative joint changes including bilateral heel spurs. Long-term use of carbamazepine has been associated with decreased bone mineral density that may lead to osteopenia or osteoporosis. She has a history of left elbow fracture that occurred with a fall in the . Her bone density test in 2022 was normal. She was recently treated with a methylprednisolone Dosepak and this was of benefit for her low back pain. Meloxicam was not of significant benefit. Physical Exam: Neuro: The patient is awake and alert and responds appropriately; speech is fluent Supplemental Info Carbamazepine level (08/16/2021): 7 (in therapeutic range).??? CBC TSH, thiamine, serum free light chains, B12, folate, CMP (03/07/2022):???Glucose 101. Carbamazepine level (03/07/2022):???9.3 (in therapeutic range) Bone density test (06/06/2022): IMPRESSION: The patient is considered normal as outlined below according to World Clement Organization (WHO) criteria with a low fracture risk. CMP, CBC (01/12/2023): Glucose 106 (high) Carbamazepine level (01/12/2023): 7.5 (in therapeutic range) Bilateral lower extremity EMG/nerve conduction studies (04/11/2023): Electrodiagnostic findings: Right (more content not included)... Normal [facility] BI MAMMO BILATERAL SCREENING TOMOSYNTHESISon 05-28-2024 BI MAMMO BILATERAL SCREENING TOMOSYNTHESIS Interpreted By: Martin Mccoy, STUDY: BI MAMMO BILATERAL SCREENING TOMOSYNTHESIS; 05/28/2024 1:29 pm ACCESSION NUMBER(S): [id number] ORDERING CLINICIAN: SELF MAMMOGRAM INDICATION: Screening. COMPARISON: Digital mammograms dated 03/08/2023 FINDINGS: CC and MLO 2D digital mammograms and digital breast tomosynthesis images were obtained of the bilateral breasts. 3-D volume images were reconstructed in 4 views at an independent workstation as 1 mm slices through the breasts in both the CC and MLO projections. Density: The breasts are almost entirely fatty. Scattered secretory calcifications are seen bilaterally, similar to prior studies. No discrete mass or focal asymmetry is identified. No suspicious microcalcifications or foci of architectural distortion are seen. There has been no significant change. This study was interpreted with CAD. IMPRESSION: No mammographic evidence of malignancy. BI-RADS CATEGORY: BI-RADS Category: 2 Benign. Recommendation: Annual Screening. Recommended Date: 1 Year. Laterality: Bilateral. MACRO: None Signed by: Martin Mccoy 05/29/2024 9:15 AM Dictation workstation: [id number] [facility] Neurology Visit Reporton Neurology Visit Report [facility] [address] [place] [address], [address] [place] [address] OFFICE VISIT Date of Service: 05/26/24 MR#: [id number] Acct: [id number] Name: VANI ESCOBAR Rep #: [id number] : 1960 Provider: Dr. Deon madden MD Age/Sex: 63/F Location: [facility] Status: Signed with Addenda ADDENDUM by Dr. Deon Mendoza MD on 06/02/24 at 1611 Addendum Addendum (06/02/2024): The patient reported having a side effect of nausea and sedation to duloxetine and did not wish to continue this medication. The duloxetine will be discontinued. She reports having dyspepsia as a side effect of flurbiprofen. Flurbiprofen will be discontinued. 06/02/24 1611 Date Deon Mendoza MD cc: * Signed ADDENDUM by Dr. Deon Mendoza MD on 06/02/24 at 1610 HPI Details: VANI ESCOBAR, is a 63 F who presents to the office today for Assessment and Plan Assessment and Plan (1) Polyneuropathy: Status: Acute (2) Epilepsy: Status: Chronic Qualifiers: Epilepsy type: unspecified Intractability: not intractable Status epilepticus: without status epilepticus Qualified Code(s): G40.909 - Epilepsy, unspecified, not intractable, without status epilepticus (3) Hyperglycemia: Status: Acute (4) Bilateral foot pain: Status: Acute Medications: New duloxetine Begin after completing one week course of duloxetine 30mg nightly. 60 mg PO QHS 30 caps 5RF duloxetine 30 mg PO QHS 7 caps 0RF Changed From [Vitamin B12 1,000 mcg/mL] Dispense: Three 1000 mcg vials To be administered at pharmacy. 1,000 mcg IM MONTHLY 3 vials 0RF To [Vitamin B12 1,000 mcg/mL] Dispense: Six 1000 mcg vials To be administered at pharmacy. 1,500 mcg IM MONTHLY 6 vials 1RF Refilled Tegretol XR (carbamazepine) 400 mg PO TID 270 tabs 1RF NS flurbiprofen 100 mg PO TID PRN 90 tabs 5RF pain [Vitamin B12 1,000 mcg/mL] Dispense: Six 1000 mcg vials To be administered at pharmacy. 1,500 mcg IM MONTHLY 6 vials 1RF Tegretol XR (carbamazepine) 400 mg PO TID 90 tabs 0RF NS 06/02/24 1610 Date Deon Mendoza MD cc: * Signed ADDENDUM by Dr. Deon Mendoza MD on 05/26/24 at 1556 Addendum Addendum (05/26/2024): The patient did not wish to pursue a follow-up bone density test this year to assess the osteopenia noted on her ankle and foot x-rays. A bone density test will be considered in 2025. 05/26/24 1556 Date eDon Mendoza MD cc: * Signed HPI HPI Chief Complaint: Details: Interim History: Vani presents for follow-up visit. She has a history of hypercholesterolemia, dyslexia and epilepsy. She began having seizures when she was 14 years old. At that time, her seizures were characterized by episodes of myoclonus occurring in the mornings that, at times, were preceded by an aura of tingling in her lower back. She was initially treated with phenytoin then switched to phenobarbital and then in the later was switched to Tegretol. She made an attempt to discontinue anticonvulsant therapy in the and had a generalized seizure with a preceding prodrome of feeling unwell for 2 days prior to the seizure. She exhibited clonic activity and tongue biting. She did not have urinary incontinence. Tegretol was resumed. In the , she had another generalized seizure that she stated was due to a side effect of Clomid which was briefly prescribed at that time. She has had no further seizures since this generalized seizure that occurred in the . She has chronic bilateral hearing loss of unclear etiology. 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 She was adopted; she does not know her history or family history. She reported that an EEG in years past was abnormal (an official report is presently not available). She stated that a head MRI performed in years past was normal (an official report is presently not available). She had previously seen a neurologist at the [facility]. An attempt to take a generic form of Tegretol-XR in the past was not well-tolerated due to a feeling that a seizure was about to occur and generalized feeling of sickness. She had previously seen a chimney construction supervisor for bilateral foot pain (the patient is unsure of a specific diagnosis that was given). She is not experiencing neuropathic (sharp or burning) pain in the feet. She had a fall and fractured her left elbow in the . She reported having degenerative joint changes in the knees. Her bone density test in 2022 was normal. Her pain in the feet (which is prominent in the heels) is worse at night. She has had pain in the ankles. She has intermittent low back pain that occurs with extended standing. Her lumbar MRI reveals mild multilevel (more content not included)... Normal [facility] Neurology Visit Reporton Neurology Visit Report [facility] [address], [address] [place] [address] OFFICE VISIT Date of Service: 01/09/24 MR#: [id number] Acct: [id number] Name: VANI ESCOBAR Rep #: [id number] : 1960 Provider: Dr. Deon madden MD Age/Sex: 63/F Location: [facility]. Status: Signed HPI HPI Chief Complaint: Details: Note: Vani presents for follow-up visit. She has a history of hypercholesterolemia, dyslexia and epilepsy. She had previously seen a chimney construction supervisor for bilateral foot pain (the patient is unsure of a specific diagnosis that was given). She stated that her foot pain has occurred with prolonged walking or standing. She is not experiencing neuropathic (sharp or burning) pain in the feet. She has reported that her bilateral foot and bilateral ankle pain are prominent. She has low back pain with extended standing. Her lumbar MRI reveals mild multilevel degenerative disc disease. EMG/nerve conduction studies of the lower extremities in April 2023 revealed bilateral sural neuropathies (however the exam was somewhat compromised by the patient's body habitus). Meloxicam has been of modest benefit for her pain. Long-term use of carbamazepine has been associated with decreased bone mineral density that may lead to osteopenia or osteoporosis. She has a history of left elbow fracture that occurred with a fall in the . Her bone density test in 2022 was normal. Bilateral foot and ankle x-rays reveal arthritis, hammertoes, osteopenia, and heel spurs. Physical Exam: Neuro: The patient is awake and alert and responds appropriately Skin Biopsy Procedure note Skin biopsy to assess for small fiber polyneuropathy. Written informed consent was obtained. Physical exam: Neuro: The patient is awake and alert and responds appropriately Extremities: No cyanosis or edema is noted in the left lower extremity The injections sites in the left lower extremity were prepped with alcohol swabs. Lidocaine 0.5% with epinephrine was infiltrated subcutaneously in the left foot and left lateral lower leg biopsy sites. A skin biopsy was obtained from the left foot. A skin biopsy was obtained from the left lower leg laterally 10 cm proximal to the lateral malleolus. Hemostasis was obtained with application of pressure. The injection sites were bandaged. There were no complications. The patient tolerated the procedure well. Supplemental Info Carbamazepine level (08/16/2021): 7 (in therapeutic range).??? CBC TSH, thiamine, serum free light chains, B12, folate, CMP (03/07/2022):???Glucose 101. Carbamazepine level (03/07/2022):???9.3 (in therapeutic range) Bone density test (06/06/2022): IMPRESSION: The patient is considered normal as outlined below according to World Clement Organization (WHO) criteria with a low fracture risk. CMP, CBC (01/12/2023): Glucose 106 (high) Carbamazepine level (01/12/2023): 7.5 (in therapeutic range) Bilateral lower extremity EMG/nerve conduction studies (04/11/2023): Electrodiagnostic findings: Right peroneal motor nerve demonstrates normal distal latency, amplitude and conduction velocity. Left peroneal motor nerve demonstrates normal distal latency and amplitude with normal conduction velocity. Tibial motor responses within normal limits bilaterally. Normal peroneal and tibial F waves. H-reflex is prolonged bilaterally. Absent sural response bilaterally. Superficial peroneal responses are within normal limits. Needle EMG testing was performed the lower limbs. All muscles tested showed no evidence of denervation with normal motor unit action potentials. Electrodiagnostic assessment: This is an abnormal study in the lower limbs. 1. Electrodiagnostic findings demonstrate absence of sural response bilaterally. 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 2. There is no electrodiagnostic evidence for peripheral polyneuropathy. 3. There is no electrodiagnostic evidence for lumbosacral radiculopathy. 4. There is no electrodiagnostic evidence for myopathy. Lumbar MRI (02/01/2023): FINDINGS: VERTEBRAE: Vertebral body heights maintained. Mild degenerative endplate changes in the lower lumbar spine without other significant bone marrow signal abnormality. ALIGNMENT: No anterior or posterior subluxation. CONUS: Normal morphology and position of the conus medullaris at T12-L1. INTERVERTEBRAL DISCS: T12-L1: No significant posterior disc protrusion, central canal stenosis, or foraminal narrowing based on the sagittal images. L1-2: No significant posterior disc protrusion, central canal stenosis, or foraminal narrowing. L2-3: Mild disc bulge with facet arthropathy resulting in minimal narrowing of the thecal sac and bilateral foramina. L3-4: Minimal disc bulge and moderate facet arthropathy superimposed (more content not included)... Normal [facility] CBC W Auto Differential pane l (Bld)on 12-28-2023 Basophils (Bld) [#/Vol] 0.03 x10*3/uL Normal 0.00-0.10 [facility] Comment on above: Performed By: #### 5 7021-8 #### LUIZA GARCIA ([id number]) [facility] ([facility]) [address] [place] [address] 57309 Basophils/100 WBC (Bld) 0.6 % Normal 0.0-2.0 [facility] Comment on above: Performed By: #### 5 7021-8 #### LUIZA GARCIA ([id number]) [facility] ([facility]) [address] [place] [address] 06532 Eosinophils (Bld) [#/Vol] 0.16 x10*3/uL Normal 0.00-0.70 [facility] Comment on above: Performed By: #### 5 7021-8 #### LUIZA GARCIA ([id number]) [facility] ([facility]) [address] [place] [address] 19197 Eosinophils/100 WBC (Bld) 3.0 % Normal 0.0-6.0 [facility] Comment on above: Performed By: #### 5 7021-8 #### LUIZA GARCIA ([id number]) [facility] ([facility]) [address] [place] [address] 77766 Erythrocyte distribution width (RBC) [Ratio] 13.2 % Normal 11.5-14.5 [facility] Comment on above: Performed By: #### 5 7021-8 #### LUIZA GARCIA ([id number]) [facility] ([facility]) [address] [place] [address] 44207 Hematocrit (Bld) [Volume fraction] 40.4 % Normal 36.0-46.0 [facility] Comment on above: Performed By: #### 5 7021-8 #### LUIZA GARCIA ([id number]) [facility] ([facility]) [address] [place] [address] 54293 Hemoglobin (Bld) [Mass/Vol] 13.0 g/dL Normal 12.0-16.0 [facility] Comment on above: Performed By: #### 5 7021-8 #### LUIZA GARCIA ([id number]) [facility] ([facility]) [address] [place] [address] 63098 Immature granulocytes (Bld) [#/Vol] 0.01 x10*3/uL Normal 0.00-0.70 [facility] Comment on above: Performed By: #### 5 7021-8 #### LUIZA GARCIA ([id number]) [facility] ([facility]) [address] [place] [address] 47856 Immature granulocytes/100 WBC (Bld) 0.2 % Normal 0.0-0.9 [facility] Comment on above: Result Comment: Kathy ture Granulocyte Count (IG) includes promyelocytes, myelocytes and metamyelocytes but does not include bands. Percent differential counts (%) should be interpreted in the context of the absolute cell counts (cells/UL). Performed By: #### 5 7021-8 #### LUIZA GARCIA ([id number]) [facility] ([facility]) [address] [place] [address] 31145 Lymphocytes (Bld) [#/Vol] 1.64 x10*3/uL Normal 1.20-4.80 [facility] Comment on above: Performed By: #### 5 7021-8 #### LUIZA GARCIA ([id number]) [facility] ([facility]) [address] [place] [address] 67707 Lymphocytes/100 WBC (Bld) 30.4 % Normal 13.0-44.0 [facility] Comment on above: Performed By: #### 5 7021-8 #### LUIZA GARCIA ([id number]) [facility] ([facility]) [address] [place] [address] 32649 MCH (RBC) [Entitic mass] 30.9 pg Normal 26.0-34.0 [facility] Comment on above: Performed By: #### 5 7021-8 #### LUIZA GARCIA ([id number]) [facility] ([facility]) [address] [place] [address] 68871 MCHC (RBC) [Mass/Vol] 32.2 g/dL Normal 32.0-36.0 [facility] Comment on above: Performed By: #### 5 7021-8 #### LUIZA GARCIA ([id number]) [facility] ([facility]) [address] [place] [address] 98825 MCV (RBC) [Entitic vol] 96 fL Normal 80-100 [facility] Comment on above: Performed By: #### 5 7021-8 #### LUIZA GARCIA ([id number]) [facility] ([facility]) [address] [place] [address] 56355 Monocytes (Bld) [#/Vol] 0.33 x10*3/uL Normal 0.10-1.00 [facility] Comment on above: Performed By: #### 5 7021-8 #### LUIZA GARCIA ([id number]) [facility] ([facility]) [address] [place] [address] 98764 Monocytes/100 WBC (Bld) 6.1 % Normal 2.0-10.0 [facility] Comment on above: Performed By: #### 5 7021-8 #### LUIZA GARCIA ([id number]) [facility] ([facility]) [address] [place] [address] 82428 Neutrophils (Bld) [#/Vol] 3.23 x10*3/uL Normal 1.20-7.70 [facility] Comment on above: Result Comment: Perc ent differential counts (%) should be interpreted in the context of the absolute cell counts (cells/uL). Performed By: #### 5 7021-8 #### LUIZA GARCIA ([id number]) [facility] ([facility]) [address] [place] [address] 66515 Neutrophils/100 WBC (Bld) 59.7 % Normal 40.0-80.0 [facility] Comment on above: Performed By: #### 5 7021-8 #### LUIZA GARCIA ([id number]) [facility] ([facility]) [address] [place] [address] 29454 Nucleated RBC/100 WBC (Bld) [Ratio] 0.0 /100 WBCs Normal 0.0-0.0 [facility] Comment on above: Performed By: #### 5 7021-8 #### LUIZA GARCIA ([id number]) [facility] ([facility]) [address] [place] [address] 43056 Platelets (Bld) [#/Vol] 213 x10*3/uL Normal 150-450 [facility] Comment on above: Performed By: #### 5 7021-8 #### LUIZA GARCIA ([id number]) [facility] ([facility]) [address] [place] [address] 92931 RBC (Bld) [#/Vol] 4.21 x10*6/uL Normal 4.00-5.20 [facility] Comment on above: Performed By: #### 5 7021-8 #### LUIZA GARCIA ([id number]) [facility] ([facility]) [address] [place] [address] 24921 WBC (Bld) [#/Vol] 5.4 x10*3/uL Normal 4.4-11.3 [facility] Comment on above: Performed By: #### 5 7021-8 #### LUIZA GARCIA ([id number]) [facility] ([facility]) [address] [place], [place] [id number] Cobalaminson 12-28-2023 Cobalamin (Vitamin B12) [Mass/Vol] 328 pg/mL Normal 211-911 [facility] Comment on above: Performed By: #### 2 132-9 #### LUIZA GARCIA ([id number]) [facility] ([facility]) [address] [place] [address] 32030 Comprehensive metabolic 2000 panelon 12-28-2023 Albumin BCP dye [Mass/Vol] 4.1 g/dL Normal 3.4-5.0 [facility] Comment on above: Performed By: #### 2 4322-8 #### LUIZA GARCIA ([id number]) [facility] ([facility]) [address] [place] [address] ALP [Catalytic activity/Vol] 73 U/L Normal 33-136 [facility] Comment on above: Performed By: #### 2 4322-8 #### LUIZA GARCIA ([id number]) [facility] ([facility]) [address] [place] [address] ALT With P-5'-P [Catalytic activity/Vol] 13 U/L Normal 7-45 [facility] Comment on above: Result Comment: Makenna ents treated with Sulfasalazine may generate falsely decreased results for ALT. Performed By: #### 2 4322-8 #### LUIZA GARCIA ([id number]) [facility] ([facility]) [address] [place] [address] Anion gap [Moles/Vol] 13 mmol/L Normal 10-20 [facility] Comment on above: Performed By: #### 2 4322-8 #### LUIZA GARCIA ([id number]) [facility] ([facility]) [address] [place] [address] AST With P-5'-P [Catalytic activity/Vol] 13 U/L Normal 9-39 [facility] Comment on above: Performed By: #### 2 4322-8 #### LUIZA GARCIA ([id number]) [facility] ([facility]) [address] [place] [address] Bilirubin [Mass/Vol] 0.3 mg/dL Normal 0.0-1.2 [facility] Comment on above: Performed By: #### 2 4322-8 #### LUIZA GARCIA ([id number]) [facility] ([facility]) [address] [place] [address] Calcium [Mass/Vol] 8.9 mg/dL Normal 8.6-10.3 [facility] Comment on above: Performed By: #### 2 4322-8 #### LUIZA GARCIA ([id number]) [facility] ([facility]) [address] [place] [address] Chloride [Moles/Vol] 104 mmol/L Normal 98-107 [facility] Comment on above: Performed By: #### 2 4323-8 #### LUIZA GARCIA ([id number]) [facility] ([facility]) [address] [place] [address] 16493 CO2 [Moles/Vol] 28 mmol/L Normal 21-32 [facility] Comment on above: Performed By: #### 2 4323-8 #### LUIZA GARCIA ([id number]) [facility] ([facility]) [address] [place] [address] 88781 Creatinine [Mass/Vol] 0.84 mg/dL Normal 0.50-1.05 [facility] Comment on above: Performed By: #### 2 4323-8 #### LUIZA GARCIA ([id number]) [facility] ([facility]) [address] [place] [address] 23464 Glomerular filtration rate/1.73 sq M.predicted 78 mL/min/1.73m*2 Normal >60 [facility] Comment on above: Result Comment: Calc ulations of estimated GFR are performed using the 2020 CKD-EPI Study Refit equation without the race variable for the IDMS-Traceable creatinine methods. https://jasn.asnjournals.org/content/early/ASN.69747150 88 Performed By: #### 2 4323-8 #### LUIZA GARCIA ([id number]) [facility] ([facility]) [address] [place] [address] 04072 Glucose [Mass/Vol] 106 mg/dL High 74-99 [facility] Comment on above: Performed By: #### 2 4323-8 #### LUIZA GARCIA ([id number]) [facility] ([facility]) [address] [place] [address] 27236 Potassium [Moles/Vol] 4.7 mmol/L Normal 3.5-5.3 [facility] Comment on above: Performed By: #### 2 4323-8 #### LUIZA GARCIA ([id number]) [facility] ([facility]) [address] [place] [address] 79390 Protein [Mass/Vol] 6.7 g/dL Normal 6.4-8.2 [facility] Comment on above: Performed By: #### 2 4323-8 #### LUIZA GARCIA ([id number]) [facility] ([facility]) [address] [place] [address] 60964 Sodium [Moles/Vol] 140 mmol/L Normal 136-145 [facility] Comment on above: Performed By: #### 2 4323-8 #### LUIZA GARCIA ([id number]) [facility] ([facility]) [address] [place] [address] 17974 Urea nitrogen [Mass/Vol] 18 mg/dL Normal 6-23 [facility] Comment on above: Performed By: #### 2 4323-8 #### LUIZA GARCIA ([id number]) [facility] ([facility]) [address] [place] [address] Folateon 12-28-2023 Folate [Mass/Vol] 18.6 ng/mL Normal >5.0 [facility] Comment on above: Order Comment: Low < 3.4 Borderline 3.4-5.0 Normal >5.0 Patients receiving more than 5 mg/day of biotin may have interference in test results. A sample should be taken no sooner than eight hours after previous dose. Contact the testing laboratory for additional information. Performed By: #### 2 284-8 #### LUIZA GARCIA ([id number]) [facility] ([facility]) [address] [place], [place] [address] HbA1c (Bld) [Mass fraction]o n 12-28-2023 Average glucose Estimated from glycated hemoglobin (Bld) [Mass/Vol] 117 mg/dL Normal Not Established [facility] Comment on above: Order Comment: Diagn osis of Wnhkstsz-MepufpVwx-Bnrveyei: < or = 5.6%Increased risk for developing diabetes: 5.7-6.4%Diagnostic of diabetes: > or = 6.5% Performed By: #### 2 132-9 #### LUIZA GARCIA ([id number]) [facility] ([facility]) [address] [place], [place] [address] Hemoglobin A1c/Hemoglobin.to roman 12-28-2023 HbA1c (Bld) [Mass fraction] 5.7 % High See comment [facility] Comment on above: Order Comment: Diagn osis of Iqzkjlwu-DjjazfUqa-Seqedtxz: < or = 5.6%Increased risk for developing diabetes: 5.7-6.4%Diagnostic of diabetes: > or = 6.5% Performed By: #### 2 132-9 #### LUIZA GRACIA ([id number]) [facility] ([facility]) [address] [place] [address] 48984 Immunoglobulin light chains. free panel (S)on 12-28-2023 Immunoglobulin light chains.kappa [Mass/Vol] 1.78 mg/dL Normal 0.33-1.94 [facility] Comment on above: Order Comment: Undet ected antigen excess is a rare event but cannot beexcluded. If these free light chain results do not agreewith other clinical or laboratory findings, or if thesample is from a patient that has previously demonstratedantigen excess, the result must be checked by retestingat a higher sample dilution. Results should always beinterpreted in conjunction with other laboratory testsand clinical evidence; any anomalies should be discussedwith the testing laboratory. Performed By: #### 2 132-9 #### LUIZA GARCIA ([id number]) [facility] ([facility]) [address] [place] [address] 35519 Immunoglobulin light chains.kappa/Immuno globulin light chains.lambda (S) [Mass ratio] 1.17 Normal 0.26-1.65 [facility] Comment on above: Order Comment: Undet ected antigen excess is a rare event but cannot beexcluded. If these free light chain results do not agreewith other clinical or laboratory findings, or if thesample is from a patient that has previously demonstratedantigen excess, the result must be checked by retestingat a higher sample dilution. Results should always beinterpreted in conjunction with other laboratory testsand clinical evidence; any anomalies should be discussedwith the testing laboratory. Performed By: #### 2 132-9 #### LUIZA GARCIA ([id number]) [facility] ([facility]) [address] [place] [address] 42963 Immunoglobulin light chains.lambda [Mass/Vol] 1.52 mg/dL Normal 0.57-2.63 [facility] Comment on above: Order Comment: Undet ected antigen excess is a rare event but cannot beexcluded. If these free light chain results do not agreewith other clinical or laboratory findings, or if thesample is from a patient that has previously demonstratedantigen excess, the result must be checked by retestingat a higher sample dilution. Results should always beinterpreted in conjunction with other laboratory testsand clinical evidence; any anomalies should be discussedwith the testing laboratory. Performed By: #### 2 132-9 #### LUIZA GARCIA ([id number]) [facility] ([facility]) [address] [place] [address] Thiamine pyrophosphateon Thiamine pyrophosphate (Bld) [Moles/Vol] 135 nmol/L Normal 70-180 [facility] Comment on above: Result Comment: INTE RPRETIVE INFORMATION: Vitamin B1, Whole Blood This assay measures the concentration of thiamine diphosphate (TDP), the primary active form of vitamin B1. Approximately 90 percent of vitamin B1 present in whole blood is TDP. Thiamine and thiamine monophosphate, which comprise the remaining 10 percent, are not measured. This test was developed and its performance characteristics determined by [facility]. It has not been cleared or approved by the US Food and Drug Administration. This test was performed in a CLIA certified laboratory and is intended for clinical purposes. Performed By: [facility] [address] [place] [address] Care Technician: Johnathon Talbert MD, PhD CLIA Number: [id number] Performed By: #### 2 132-9 #### LUIZA GARCIA ([id number]) [facility] ([facility]) [address] [place] [address] Thyrotropinon 12-28-2023 TSH Qn 3.59 m[IU]/L Normal 0.44-3.98 [facility] Comment on above: Order Comment: TSH t esting is performed using different testing methodology at [facility] than at other [facility]. Direct result comparisons should only be made within the same method. Performed By: #### 3 016-3 #### LUIZA GARCIA ([id number]) [facility] ([facility]) [address] [place], [place] [address] carBAMazepineon 12-28-2023 carBAMazepine [Mass/Vol] 8.1 ug/mL Normal 4.0-12.0 [facility] Comment on above: Performed By: #### 2 132-9 #### JARRETT RADHA ([id number]) [facility] ([facility]) [address] [place] [address] Ankle Brachial Indexon 12-25 Ankle Brachial Index [facility] [address] [place] [address] Ankle Brachial Index 12/26/23 1350 MR#: [id number] Acct: [id number] Name: VANI ESCOBAR Rep #: [id number] : 1960 63 From: Adair Rowe MD Attending Dr: Dr. Deon Mendoza MD Status: R EG CLI Ordering Dr: Deon Mendoza MD Date: 12/26/23 Location: CVS Sex: F C Admitted: Reason For Study: Absent Pedal Pulses Procedure A bilateral lower extremity continuous wave Doppler with analog waveform analysis and ankle brachial indexes. Left Segmental Pressures Left brachial= 184mmHg. Left posterior tibial artery = 230mmHg. Left dorsalis pedis artery = 226mmHg. The left dorsalis pedis waveforms are triphasic. The left posterior tibial artery waveforms are triphasic. Right Segmental Pressures Right brachial= 170mmHg. Right posterior tibial artery = 229mmHg. Right dorsalis pedis artery = 214mmHg. The right dorsalis pedis waveforms are triphasic. The right posterior tibial artery waveforms are triphasic. Indices The right ankle brachial index by the dorsalis pedis is 1.16. The right ankle brachial index by the posterior tibial artery is 1.24. The left ankle brachial index by the dorsalis pedis is 1.23. The left ankle brachial index by the posterior tibial artery is 1.25. VL/Ankle Brachial Index Interpretation Summary Right MYNOR 1.24, normal. Doppler/PVR waveforms of the right ankle normal at rest. Left MYNOR 1.25, normal. Doppler/PVR waveforms of the left ankle normal at rest. Ordering Physician: Deon Mendoza Referring Physician: SAHIL BELLA Performed By: Berenice Rodriguez RVT and Student 12/26/23 1550 Date Adair Rowe MD CC: RAILROAD MECHANIC-C Sahil Bella; Dr. Deon Mendoza MD Date Dictated: 12/26/23 1350 Date Transcribed: 12/26/231549 [employer]: Signed Normal [facility] Ankle min 3 Viewson 12-26-19 Ankle min 3 Views [facility] [address] [place] [address] Ankle min 3 Views MR#: [id number] Acct: [id number] Name: VANI ESCOBAR Rep #: [id number] : 1960 F 63 From: Anthony Clayton MD PCP: LUIS MIGUEL Botello Status: REG CLI Study: Ankle min 3 Views Date of Exam: 12/26/23 Exam# [id number] Ordering [place]: [place] [id number] STUDY: X-RAY - LEFT ANKLE REASON FOR EXAM: Female, 63 years old. Pain. TECHNIQUE: 3 view(s) of the ankle. COMPARISON: None. FINDINGS: Osteopenia. Normal visualized distal tibia and fibula. Normal medial and lateral malleoli. Normal tibiotalar articulation and ankle mortise. Moderate arthrosis of the midfoot. Large inferior calcaneal spur. Mild diffuse soft tissue swelling. RAD/Ankle min 3 Views IMPRESSION: Osteopenia, calcaneal spur, moderate arthrosis of the midfoot and diffuse soft tissue swelling. Electronically Signed: Anthony Clayton MD at 14:28 EDT Reading Location ID and State: [facility] / [place] , Service support , CC: LUIS MIGUEL Bella; Dr. Deon Mendoza MD [employer]: Signed Normal [facility] Ankle min 3 Views [facility] [address] [place], [place] [address], [place] [id number] Ankle min 3 Views MR#: [id number] Acct: [id number] Name: VANI ESCOBAR Rep #: [id number] : 1960 F 63 From: Anthony Clayton MD PCP: LUIS MIGUEL Botello Status: REG CLI Study: Ankle min 3 Views Date of Exam: 12/26/23 Exam# [id number] Ordering Dr: [place] [id number] STUDY: X-RAY - RIGHT ANKLE REASON FOR EXAM: Female, 63 years old. Bilateral ankle pain. TECHNIQUE: 3 view(s) of the ankle. COMPARISON: None. FINDINGS: Osteopenia. Normal visualized distal tibia and fibula. Normal medial and lateral malleoli. Normal tibiotalar articulation and ankle mortise. Moderate arthrosis of the midfoot. Large inferior calcaneal spur. Mild diffuse soft tissue swelling. RAD/Ankle min 3 Views IMPRESSION: Osteopenia, calcaneal spur, moderate arthrosis of the midfoot and diffuse soft tissue swelling. Electronically Signed: Anthony Clayton MD at 14:27 EDT Reading Location ID and State: [address] [place] [address] , Service support , CC: LUIS MIGUEL Bella; Dr. Deon Mendoza MD [employer]: Signed Normal [facility] Foot min 3 Viewson 4 Foot min 3 Views [facility] [address] [place] [address] Foot min 3 Views MR#: [id number] Acct: [id number] Name: VANI ESCOBAR Rep #: [id number] : 1960 F 63 From: Anthony Clayton MD PCP: LUIS MIGUEL Botello Status: REG CLI Study: Foot min 3 Views Date of Exam: 12/26/23 Exam# [id number] Ordering Dr: [place] [id number] STUDY: X-RAY - LEFT FOOT CLINICAL: Female, 63 years old. Pain. TECHNIQUE: 3 view(s) of the foot. COMPARISON: None. FINDINGS: Osteopenia. Large inferior calcaneal spur. Moderate arthrosis of the midfoot. Moderate arthrosis of the TMT joints. Moderate arthrosis of the MTP and IP joints with hammertoe deformities. Diffuse soft tissue swelling. RAD/Foot min 3 Views IMPRESSION: Osteopenia, large inferior calcaneal spur, midfoot arthrosis, moderate arthrosis of the TMT joints, moderate arthrosis of the MTP and IP joints. Hammertoe deformities is soft tissue swelling. Electronically Signed: Anthony Clayton MD at 14:29 EDT Reading Location ID and State: [address] [place] [address] , Service support , CC: LUIS MIGUEL Bella; Dr. Deon Mendoza MD [employer] Dist[employer]: Signed Normal [facility] Foot min 3 Views [facility] [address] [place] [address] Foot min 3 Views MR#: [id number] Acct: [id number] Name: VANI ESCOBAR Rep #: [id number] : 1960 F 63 From: Anthony Clayton MD PCP: LUIS MIGUEL Botello Status: REG CLI Study: Foot min 3 Views Date of Exam: 12/26/23 Exam# [id number] Ordering Dr: [place] [id number] STUDY: X-RAY - RIGHT FOOT CLINICAL: Female, 63 years old. Bilateral foot pain. TECHNIQUE: 3 view(s) of the foot. COMPARISON: None. FINDINGS: Osteopenia. Large inferior calcaneal spur. Moderate arthrosis of the midfoot. Moderate arthrosis of the TMT joints. Moderate arthrosis of the MTP and IP joints with hammertoe deformities. Diffuse soft tissue swelling. RAD/Foot min 3 Views IMPRESSION: Osteopenia, large inferior calcaneal spur, midfoot arthrosis, moderate arthrosis of the TMT joints, moderate arthrosis of the MTP and IP joints. Hammertoe deformities is soft tissue swelling. Electronically Signed: Anthony Clayton MD at 14:30 EDT , CC: LUIS MIGUEL Bella; Dr. Deon Mendoza MD [employer] Dist[employer]: Signed Normal [facility] Neurology Visit Reporton Neurology Visit Report [facility] [address] [place] [address], [address] [place] [address] OFFICE VISIT Date of Service: 12/03/23 MR#: [id number] Acct: [id number] Name: VANI ESCOBAR Rep #: [id number] : 1960 Provider: Dr. Deon madden MD Age/Sex: 63/F Location: [facility]. Status: Signed with Addenda ADDENDUM by Dr. Deon Mendoza MD on 01/03/24 at 1638 Addendum Addendum (01/03/2024): The patient wishes to resume monthly B12 1000 mcg IM injections for her fatigue to be administered at an outpatient clinic of her choice and a prescription for this will be sent to her pharmacy. 01/03/24 1638 Date Deon Mendoza MD cc: * Signed HPI [facility] Chief Complaint: Details: Interim History: Vani presents for follow-up visit. She has a history of hypercholesterolemia, dyslexia and epilepsy. She began having seizures when she was 14 years old. At that time, her seizures were characterized by episodes of myoclonus occurring in the mornings that, at times, were preceded by an aura of tingling in her lower back. She was initially treated with phenytoin then switched to phenobarbital and then in the later was switched to Tegretol. She made an attempt to discontinue anticonvulsant therapy in the and had a generalized seizure with a preceding prodrome of feeling unwell for 2 days prior to the seizure. She exhibited clonic activity and tongue biting. She did not have urinary incontinence. Tegretol was resumed. In the , she had another generalized seizure that she stated was due to a side effect of Clomid which was briefly prescribed at that time. She has had no further seizures since this generalized seizure that occurred in the . She has chronic bilateral hearing loss of unclear etiology. 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 She was adopted and does not know her history or family history. She reported that an EEG in years past was abnormal (an official report is presently not available). She stated that a head MRI performed in years past was normal (an official report is presently not available). She had previously seen a neurologist at the [facility]. An attempt to take a generic form of Tegretol-XR in the past was not well-tolerated due to a feeling that a seizure was about to occur and generalized feeling of sickness. She had previously seen a chimney construction supervisor for bilateral foot pain (the patient is unsure of a specific diagnosis that was given). She stated that her foot pain has occurred with prolonged walking or standing. She is not experiencing neuropathic (sharp or burning) pain in the feet. She had a fall and fractured her left elbow in the . She reported having degenerative joint changes in the knees. Her bone density test in 2022 was normal. She now reports that her bilateral foot and bilateral ankle pain are prominent. She has low back pain with extended standing. Her lumbar MRI reveals mild multilevel degenerative disc disease. EMG/nerve conduction studies of the lower extremities in April 2023 revealed bilateral sural neuropathies (however the exam was somewhat compromised by the patient's body habitus). Long-term use of carbamazepine has been associated with decreased bone mineral density that may lead to osteopenia or osteoporosis. She has a history of left elbow fracture that occurred with a fall in the . Her bone density test earlier in 2022 was normal. Physical Exam: Neuro: The patient is awake and alert and responds appropriately; speech is fluent; motor strength is 5/5 in the foot dorsiflexors bilaterally and quadriceps bilaterally; deep tendon reflexes are +2 at the right knee and absent at the left knee and ankles; plantar responses are upward bilaterally (versus a withdrawal response); decreased vibratory sensation is noted in the feet Extremities: Dorsalis pedis and posterior tibial pulses are absent bilaterally Supplemental Info Carbamazepine level (08/16/2021): 7 (in therapeutic range).??? CBC TSH, thiamine, serum free light chains, B12, folate, CMP (03/07/2022):???Glucose 101. Carbamazepine level (03/07/2022):???9.3 (in therapeutic range) Bone density test (06/06/2022): IMPRESSION: The patient is considered normal as outlined below according to World Clement Organization (WHO) criteria with a low fracture risk. CMP, CBC (01/12/2023): Glucose 106 (high) Carbamazepine level (01/12/2023): 7.5 (in therapeutic range) Bilateral lower extremity EMG/nerve conduction studies (04/11/2023): Electrodiagnostic findings: Right peroneal motor nerve demonstrates normal distal latency, amplitude and conduction velocity. Left peroneal motor nerve demonstrates normal distal latency and amplitude with normal conduction velocity. Tibial motor responses within normal limits bilaterally. Normal peroneal and tibial F (more content not included)... Normal [facility] DBT Breast - bilateralon No mammographic evidence of malignancy. BI-RADS CATEGORY: BI-RADS Category: 1 Negative. Recommendation: Routine Screening Mammogram in 1 Year. Recommended Date: 1 Year. Laterality: Bilateral. MACRO: None Signed by: Martin Mccoy 03/09/2023 11:19 AM Dictation workstation: [id number] RAJAN CROW Interpreted By: Martin Mccoy, STUDY: BI MAMMO BILATERAL SCREENING TOMOSYNTHESIS; 03/08/2023 11:37 am ACCESSION NUMBER(S): [id number] ORDERING CLINICIAN: INTERFACE UNSPECIFIELDPROVIDER INDICATION: Screening. COMPARISON: Digital mammograms dated 03/07/2022 FINDINGS: CC and MLO 2D digital mammograms and digital breast tomosynthesis images were obtained of the bilateral breasts. 3-D volume images were reconstructed in 4 views at an independent workstation as 1 mm slices through the breasts in both the CC and MLO projections. Density: The breast tissue is almost entirely fatty. No discrete mass or focal asymmetry is identified. No suspicious microcalcifications or foci of architectural distortion are seen. There has been no significant change. This study was interpreted with CAD. MMODAL Martin Mccoy MD - 03/09/2023 Interpreted By: Martin Mccoy, STUDY: BI MAMMO BILATERAL SCREENING TOMOSYNTHESIS; 03/08/2023 11:37 am ACCESSION NUMBER(S): [id number] ORDERING CLINICIAN: INTERFACE UNSPECIFIELDPROVIDER INDICATION: Screening. COMPARISON: Digital mammograms dated 03/07/2022 FINDINGS: CC and MLO 2D digital mammograms and digital breast tomosynthesis images were obtained of the bilateral breasts. 3-D volume images were reconstructed in 4 views at an independent workstation as 1 mm slices through the breasts in both the CC and MLO projections. Density: The breast tissue is almost entirely fatty. No discrete mass or focal asymmetry is identified. No suspicious microcalcifications or foci of architectural distortion are seen. There has been no significant change. This study was interpreted with CAD. IMPRESSION: No mammographic evidence of malignancy. BI-RADS CATEGORY: BI-RADS Category: 1 Negative. Recommendation: Routine Screening Mammogram in 1 Year. Recommended Date: 1 Year. Laterality: Bilateral. MACRO: None Signed by: Martin Mccoy 03/09/2023 11:19 AM Dictation workstation: [id number] [facility] Work Phone: DBT Breast - bilateralOrdere d By: Martin Mccoy on 03-09-2023 [facility] Work Phone: DBT Breast - bilateralon Radiology Study observation (narrative) [facility] Work Phone: CBC panel Auto (Bld)on 01-12 Erythrocyte distribution width (RBC) [Ratio] 13.1 % Normal 11.5-14.5 [facility] Comment on above: Performed By: #### 5 8410-2 #### LUIZA GARCIA ([id number]) [facility] ([facility]) [address] [place] [address] Hematocrit (Bld) [Volume fraction] 39.3 % Normal 36.0-46.0 [facility] Comment on above: Performed By: #### 5 8410-2 #### LUIZA GARCIA ([id number]) [facility] ([facility]) [address] [place] [address] 94028 Hemoglobin (Bld) [Mass/Vol] 12.8 g/dL Normal 12.0-16.0 [facility] Comment on above: Performed By: #### 5 8410-2 #### LUIZA GARCIA ([id number]) [facility] ([facility]) [address] [place] [address] 51482 MCH (RBC) [Entitic mass] 31.2 pg Normal 26.0-34.0 [facility] Comment on above: Performed By: #### 5 8410-2 #### LUIZA GARCIA ([id number]) [facility] ([facility]) [address] [place] [address] 56481 MCHC (RBC) [Mass/Vol] 32.6 g/dL Normal 32.0-36.0 [facility] Comment on above: Performed By: #### 5 8410-2 #### LUIZA GARCIA ([id number]) [facility] ([facility]) [address] [place] [address] 95353 MCV (RBC) [Entitic vol] 96 fL Normal 80-100 [facility] Comment on above: Performed By: #### 5 8410-2 #### LUIZA GARCIA ([id number]) [facility] ([facility]) [address] [place] [address] 09907 Nucleated RBC/100 WBC (Bld) [Ratio] 0.0 /100 WBCs Normal 0.0-0.0 [facility] Comment on above: Performed By: #### 5 8410-2 #### LUIZA GARCIA ([id number]) [facility] ([facility]) [address] [place] [address] 41303 Platelet mean volume (Bld) [Entitic vol] 11.2 fL Normal 7.5-11.5 [facility] Comment on above: Performed By: #### 5 8410-2 #### LUIZA GARCIA ([id number]) [facility] ([facility]) [address] [place] [address] 03117 Platelets (Bld) [#/Vol] 204 x10*3/uL Normal 150-450 [facility] Comment on above: Performed By: #### 5 8410-2 #### LUIZA GARCIA ([id number]) [facility] ([facility]) [address] [place] [address] 49791 RBC (Bld) [#/Vol] 4.10 x10*6/uL Normal 4.00-5.20 [facility] Comment on above: Performed By: #### 5 8410-2 #### LUIZA GARCIA ([id number]) [facility] ([facility]) [address] [place] [address] 76283 WBC (Bld) [#/Vol] 5.7 x10*3/uL Normal 4.4-11.3 [facility] Comment on above: Performed By: #### 5 8410-2 #### LUIZA GARCIA ([id number]) [facility] ([facility]) [address] [place] [address] 42869 Cobalaminson 01-12-2023 Cobalamin (Vitamin B12) [Mass/Vol] 521 pg/mL Normal 211-911 [facility] Comment on above: Performed By: #### 2 132-9 #### LUIZA GARCIA ([id number]) [facility] ([facility]) [address] [place] [address] 59709 Comprehensive metabolic 2000 panelon 01-12-2023 Albumin BCP dye [Mass/Vol] 3.9 g/dL Normal 3.4-5.0 [facility] Comment on above: Performed By: #### 2 4323-8 #### LUIZA GARCIA ([id number]) [facility] ([facility]) [address] [place] [address] 94071 ALP [Catalytic activity/Vol] 70 U/L Normal 33-136 [facility] Comment on above: Performed By: #### 2 4323-8 #### LUIZA GARCIA ([id number]) [facility] ([facility]) [address] [place] [address] 23225 ALT With P-5'-P [Catalytic activity/Vol] 14 U/L Normal 7-45 [facility] Comment on above: Result Comment: Makenna ents treated with Sulfasalazine may generate falsely decreased results for ALT. Performed By: #### 2 4323-8 #### LUIZA GARCIA ([id number]) [facility] ([facility]) [facility] [place] [address] Anion gap [Moles/Vol] 13 mmol/L Normal 10-20 [facility] Comment on above: Performed By: #### 2 4323-8 #### LUIZA GARCIA ([id number]) [facility] ([facility]) [address] [place] [address] AST With P-5'-P [Catalytic activity/Vol] 14 U/L Normal 9-39 [facility] Comment on above: Performed By: #### 2 4323-8 #### LUIZA GARCIA ([id number]) [facility] ([facility]) [facility] [place] [address] Bilirubin [Mass/Vol] 0.3 mg/dL Normal 0.0-1.2 [facility] Comment on above: Performed By: #### 2 4323-8 #### LUIZA GARCIA ([id number]) [facility] ([facility]) [address] [place] [address] 34759 Calcium [Mass/Vol] 8.9 mg/dL Normal 8.6-10.3 [facility] Comment on above: Performed By: #### 2 4323-8 #### LUIZA GARCIA ([id number]) [facility] ([facility]) [address] [place] [address] 12235 Chloride [Moles/Vol] 105 mmol/L Normal 98-107 [facility] Comment on above: Performed By: #### 2 4323-8 #### LUIZA GARCIA ([id number]) [facility] ([facility]) [address] [place] [address] CO2 [Moles/Vol] 29 mmol/L Normal 21-32 [facility] Comment on above: Performed By: #### 2 4323-8 #### LUIZA GARCIA ([id number]) [facility] ([facility]) [address] [place] [address] 97106 Creatinine [Mass/Vol] 0.71 mg/dL Normal 0.50-1.05 [facility] Comment on above: Performed By: #### 2 4323-8 #### LUIZA GARCIA ([id number]) [facility] ([facility]) [address] [place] [address] 33011 GFR/1.73 sq M.predicted MDRD (S/P/Bld) [Vol rate/Area] mL/min/{1.73_m2} Normal >60 [facility] Comment on above: Result Comment: Calc ulations of estimated GFR are performed using the 2020 CKD-EPI Study Refit equation without the race variable for the IDMS-Traceable creatinine methods. https://jasn.asnjournals.org/content//ASN.73105058 88 Performed By: #### 2 4323-8 #### LUIZA GARCIA ([id number]) [facility] ([facility]) [address] [place] [address] 04738 Glucose [Mass/Vol] 106 mg/dL High 74-99 [facility] Comment on above: Performed By: #### 2 4323-8 #### LUIZA GARCIA ([id number]) [facility] ([facility]) [address] [place] [address] 45130 Potassium [Moles/Vol] 4.5 mmol/L Normal 3.5-5.3 [facility] Comment on above: Performed By: #### 2 4323-8 #### LUIZA GARCIA ([id number]) [facility] ([facility]) [address] [place] [address] 64306 Protein [Mass/Vol] 6.2 g/dL Low 6.4-8.2 [facility] Comment on above: Performed By: #### 2 4323-8 #### LUIZA GARCIA ([id number]) [facility] ([facility]) [address] [place] [address] 02221 Sodium [Moles/Vol] 142 mmol/L Normal 136-145 [facility] Comment on above: Performed By: #### 2 4323-8 #### LUIZA GARCIA ([id number]) [facility] ([facility]) [address] [place] [address] 72578 Urea nitrogen [Mass/Vol] 18 mg/dL Normal 6-23 [facility] Comment on above: Performed By: #### 2 4323-8 #### LUIZA GARCIA ([id number]) [facility] ([facility]) [address] [place] [address] 40085 Lipid 1996 panelon 3 Cholesterol [Mass/Vol] 223 mg/dL High 0-199 [facility] Comment on above: Result Comment: Age Desirable Borderline High High 0-19 Y 0 - 169 170 - 199 >/= 200 20-24 Y 0 - 189 190 - 224 >/= 225 >24 Y 0 - 199 200 - 239 >/= 240 All ranges are based on fasting samples. Specific therapeutic targets will vary based on patient-specific cardiac risk. Pediatric guidelines reference:Pediatrics 2011, 128(S5).Adult guidelines reference: NCEP ATPIII Guidelines,AROLDO 2001, 258:2486-97 Venipuncture immediately after or during the administration of Metamizole may lead to falsely low results. Testing should be performed immediately prior to Metamizole dosing. Performed By: #### 2 4331-1 #### LUIZA GARCIA ([id number]) [facility] ([facility]) [address] [place] [address] 48800 Cholesterol in HDL [Mass/Vol] 73.0 mg/dL Normal [facility] Comment on above: Result Comment: Age Very Low Low Normal High 0-19 Y < 35 < 40 40-45 ---- 20-24 Y ---- < 40 >45 ---- >24 Y ---- < 40 40-60 >60 Performed By: #### 2 4331-1 #### LUIZA GARCIA ([id number]) [facility] ([facility]) [address] [place] [address] 87473 Cholesterol in LDL [Mass/Vol] 132 mg/dL Low 140-190 [facility] Comment on above: Result Comment: Near Borderline AGE Desirable Optimal High High Very High 0-19 Y 0 - 109 --- 110-129 >/= 130 ---- 20-24 Y 0 - 119 --- 120-159 >/= 160 ---- >24 Y 0 - 99 100-129 130-159 160-189 >/=190 Performed By: #### 2 4331-1 #### LUIZA GARCIA ([id number]) [facility] ([facility]) [address] [place] [address] 06409 Cholesterol in VLDL [Mass/Vol] 18 mg/dL Normal 0-40 [facility] Comment on above: Performed By: #### 2 4331-1 #### LUIZA GARCIA ([id number]) [facility] ([facility]) [address] [place] [address] 63669 CHOLESTEROL/HDL RATIO 3.1 Normal [facility] Comment on above: Result Comment: Ref Values Desirable < 3.4 High Risk > 5.0 Performed By: #### 2 4331-1 #### LUIZA GARCIA ([id number]) [facility] ([facility]) [facility] [place] [address] NON HDL CHOLESTEROL 150 mg/dL High 0-149 [facility] Comment on above: Result Comment: Age Desirable Borderline High High Very High 0-19 Y 0 - 119 120 - 144 >/= 145 >/= 160 20-24 Y 0 - 149 150 - 189 >/= 190 ---- >24 Y 30 mg/dL above LDL Cholesterol goal Performed By: #### 2 4331-1 #### LUIZA GARCIA ([id number]) [facility] ([facility]) [address] [place] [address] 23313 Triglyceride [Mass/Vol] 89 mg/dL Normal 0-149 [facility] Comment on above: Result Comment: Age Desirable Borderline High High Very High 0 D-90 D 19 - 174 ---- ---- ---- 91 D- 9 Y 0 - 74 75 - 99 >/= 100 ---- 10-19 Y 0 - 89 90 - 129 >/= 130 ---- 20-24 Y 0 - 114 115 - 149 >/= 150 ---- >24 Y 0 - 149 150 - 199 200- 499 >/= 500 Venipuncture immediately after or during the administration of Metamizole may lead to falsely low results. Testing should be performed immediately prior to Metamizole dosing. Performed By: #### 2 4331-1 #### LUIZA GARCIA ([id number]) [facility] ([facility]) [address] [place] [address] 90721 carBAMazepineon 01-12-2023 carBAMazepine [Mass/Vol] 7.5 ug/mL Normal 4.0-12.0 [facility] Comment on above: Performed By: #### 3 432-2 #### FRENCH Carmona ([id number]) [facility] ([facility]) [id number] [place] [address] CNPNon 04-18-2022 CNPN Telephone (MILDRED) VANI ESCOBAR ([id number]) 1960 F BOBY Date Time Provider Department 04/18/22 KATRIN SANTAMARIA During your visit today, we recorded the following information about you: Arias Ruggiero RN 04/18/2022 4:33 PM Signed LVM that [facility] sent a fax for refill. Pt is due for an appt. Enc to call to sched appt and let us know if she does need a refill. Arias Ruggiero RN Allergies As of Date: 04/18/2022 Noted Allergy Reaction IODINE 06/22/2011 7 - Swelling LOBSTER (CRUSTACEANS) 06/22/2011 7 - Swelling SEASONAL ALLERGIES 10/18/2018 5 - Intolerance TOMATOES 08/13/2013 4 - Hives Comments: When ingesting tomatoes in large amounts Date Reviewed: 02/13/2020 Reviewed by: Maddi Donis - Fully Assessed Reason for Visit: Refill Request [94] Prescriptions as of 04/18/2022 - mometasone (ELOCON) 0.1 % cream Apply to affected area as directed. Twice daily for 2 weeks, daily for 2 weeks, every other day for 2 weeks then twice weekly - estradiol (ESTRACE) 0.01 % (0.1 mg/gram) vaginal cream INSERT 2 GRAMS VAGINALLY ONE TO TWO TIMES WEEKLY DISCUSSED - nystatin (MYCOSTATIN) cream Apply 1 application to affected area twice daily. - cetirizine (ZYRTEC) 10 mg tablet Take 1 tablet by mouth once daily. - cyanocobalamin 1,000 mcg/mL soln INJECT 1 ML INTO THE MUSCLE ONCE EVERY MONTH DIRECTED. DISCARD AFTER 28 DAYS - meclizine (ANTIVERT) 12.5 mg tab Take 2 tablets by mouth three times daily. - TEGRETOL XR 400 mg 12 hr tablet TAKE 1 TABLET THREE TIMES A DAY - TEGRETOL XR 400 mg 12 hr tablet Take 1 tablet by mouth three times daily. - methocarbamol (ROBAXIN) 500 mg tablet Take 1 tablet by mouth three times daily as needed. - magnesium oxide (MAG-OX) 400 mg tablet Take 1 tablet by mouth as needed. - ibuprofen (MOTRIN) 800 mg tablet Take 1 tablet by mouth every 8 hours as needed for Pain. - cyclobenzaprine (FLEXERIL) 5 mg tablet Take 1 tablet by mouth every 8 hours as needed for Muscle Spasm (or pain). Problem List As Of Date 04/18/2022 Noted Resolved Seizure [R56.9] 05/21/2013 Asthma [J45.909] 05/21/2013 Obesity [E66.9] Obesity, Class III, BMI >= 40 [E66.01] 10/18/2018 Disc degeneration, lumbosacral [M51.37] 05/11/2009 Lumbar radiculopathy [M54.16] 08/11/2008 Lipoma [D17.9] 03/14/2004 Encounter Status:Closed by ARIAS RUGGIERO on 04/18/22 Normal [facility] VIT B1-THIAMINE WHOLE BLDon 03-12-2022 VIT B1-THIAMINE WHOLE BLD 122 nmol/L Normal 70-180 [facility] Comment on above: Result Comment: INTE RPRETIVE INFORMATION: Vitamin B1, Whole Blood This assay measures the concentration of thiamine diphosphate (TDP), the primary active form of vitamin B1. Approximately 90 percent of vitamin B1 present in whole blood is TDP. Thiamine and thiamine monophosphate, which comprise the remaining 10 percent, are not measured. This test was developed and its performance characteristics determined by [facility]. It has not been cleared or approved by the US Food and Drug Administration. This test was performed in a CLIA certified laboratory and is intended for clinical purposes. Performed By: [facility] [address] [place] [address] Care Technician: Johnathon Talbert MD, PhD Performed By: #### C [facility] #### [address] [address] No Panel Informationon 03-10 Please click on the link to view the study images Normal [facility] [address] Work Phone: KAPPA/LAMBDA FREE LIGHT Satya PAL 03-08-2022 FREE KAPPA LIGHT CHAINS,S 1.87 mg/dL Normal 0.33 - 1.94 [facility] Comment on above: Performed By: #### C BCDF #### [address] [address] FREE KAPPA/LAMBDA RATIO,S 0.80 Normal 0.26 - 1.65 [facility] Comment on above: Result Comment: Unde tected antigen excess is a rare event but cannot be excluded. If these free light chain results do not agree with other clinical or laboratory findings, or if the sample is from a patient that has previously demonstrated antigen excess, the result must be checked by retesting at a higher sample dilution. Results should always be interpreted in conjunction with other laboratory tests and clinical evidence; any anomalies should be discussed with the testing laboratory. Performed By: #### C BCDF #### [address] [address] FREE LAMBDA LIGHT CHAIN,S 2.34 mg/dL Normal 0.57 - 2.63 [facility] Comment on above: Performed By: #### C BCDF #### [address] [address] CARBAMAZEPINEon 03-07-2022 CARBAMAZEPINE 9.3 ug/mL Normal 4.0 - 12.0 [facility] Comment on above: Performed By: #### C ARB #### [address] [address] CBCon 03-07-2022 Erythrocyte distribution width (RBC) [Ratio] 13.2 % Normal 11.5 - 14.5 [facility] Comment on above: Performed By: #### C BC #### [address] [address] Hematocrit (Bld) [Volume fraction] 39.3 % Normal 36.0 - 46.0 [facility] Comment on above: Performed By: #### C BC #### [address] [address] Hemoglobin (Bld) [Mass/Vol] 13.2 g/dL Normal 12.0 - 16.0 [facility] Comment on above: Performed By: #### C BC #### [address] [address] MCHC (RBC) [Mass/Vol] 33.6 g/dL Normal 32.0 - 36.0 [facility] Comment on above: Performed By: #### C BC #### [address] [address] MCV (RBC) [Entitic vol] 95 fL Normal 80 - 100 [facility] Comment on above: Performed By: #### C BC #### [address] [address] Platelets (Bld) [#/Vol] 225 10*3/uL Normal 150 - 450 [facility] Comment on above: Performed By: #### C BC #### [address] [address] RBC 4.15 x10E12/L Normal 4.00 - 5.20 [facility] Comment on above: Performed By: #### C BC #### [address] [address] WBC (Bld) [#/Vol] 5.5 10*3/uL Normal 4.4 - 11.3 [facility] Comment on above: Performed By: #### C BC #### [address] [address] COMPREHENSIVE PANELon 2021 Albumin [Mass/Vol] 4.2 g/dL Normal 3.4 - 5.0 [facility] Comment on above: Performed By: #### C MP #### [address] [address] ALP [Catalytic activity/Vol] 75 U/L Normal 33 - 136 [facility] Comment on above: Performed By: #### C MP #### [address] [address] ALT [Catalytic activity/Vol] 14 U/L Normal 7 - 45 [facility] Comment on above: Result Comment: Makenna ents treated with Sulfasalazine may generate falsely decreased results for ALT. Performed By: #### C MP #### [address] [address] Anion gap [Moles/Vol] 12 mmol/L Normal 10 - 20 [facility] Comment on above: Performed By: #### C MP #### [address] [address] AST [Catalytic activity/Vol] 14 U/L Normal 9 - 39 [facility] Comment on above: Performed By: #### C MP #### [address] [address] Bilirubin [Mass/Vol] 0.3 mg/dL Normal 0.0 - 1.2 [facility] Comment on above: Performed By: #### C MP #### [address] [address] Calcium [Mass/Vol] 9.2 mg/dL Normal 8.6 - 10.3 [facility] Comment on above: Performed By: #### C MP #### [address] [address] Chloride [Moles/Vol] 103 mmol/L Normal 98 - 107 [facility] Comment on above: Performed By: #### C MP #### [address] [address] Creatinine [Mass/Vol] 0.79 mg/dL Normal 0.50 - 1.05 [facility] Comment on above: Performed By: #### C MP #### [address] [address] GFR/1.73 sq M.predicted among non-blacks MDRD (S/P/Bld) [Vol rate/Area] 84 mL/min/{1.73_m2} Normal >90 [facility] Comment on above: Result Comment: CALC ULATIONS OF ESTIMATED GFR ARE PERFORMED USING THE 2020 CKD-EPI STUDY REFIT EQUATION WITHOUT THE RACE VARIABLE FOR THE IDMS-TRACEABLE CREATININE METHODS. https://jasn.asnjournals.org/content//ASN.09027623 88 Performed By: #### C MP #### [address] [address] Glucose [Mass/Vol] 101 mg/dL High 74 - 99 [facility] Comment on above: Performed By: #### C MP #### [address] [address] HCO3 (Bld) [Moles/Vol] 27 mmol/L Normal 21 - 32 [facility] Comment on above: Performed By: #### C MP #### [address] [address] Potassium [Moles/Vol] 4.3 mmol/L Normal 3.5 - 5.3 [facility] Comment on above: Performed By: #### C MP #### [address] [address] Protein [Mass/Vol] 7.0 g/dL Normal 6.4 - 8.2 [facility] Comment on above: Performed By: #### C MP #### [address] [address] Sodium [Moles/Vol] 138 mmol/L Normal 136 - 145 [facility] Comment on above: Performed By: #### C MP #### [address] [address] Urea nitrogen [Mass/Vol] 18 mg/dL Normal 6 - 23 [facility] Comment on above: Performed By: #### C MP #### [address] [address] Carbamazepine Level, Serumon 03-07-2022 carBAMazepine [Mass/Vol] 9.3 ug/mL 4.0 - 12.0 [facility] [address] Work Phone: FOLATE, SERUMon 03-07-2022 Folate [Mass/Vol] 19.6 ng/mL Normal >5.0 [facility] Comment on above: Result Comment: Low <3.4 Borderline 3.4-5.0 Normal >5.0 . Patients receiving more than 5 mg/day of biotin may have interference in test results. A sample should be taken no sooner than eight hours after previous dose. Contact the testing laboratory for additional information. Performed By: #### F OLA2 #### [address] [place] [address] Folate, Serumon 03-07-2022 Folate [Mass/Vol] 19.6 ng/mL >5.0 [facility] [address] Work Phone: [phone] Comment on above: Low <3.4Borderline 3 .4-5.0Normal >5.0. Patients receiving more than 5 mg/day of biotin may have interference in test results. A sample should be taken no sooner than eight hours after previous dose. Contact the testing laboratory for additional information. Laboratory - Chemistry and C hemistry - challengeon 03-07-2022 Albumin BCP dye [Mass/Vol] 4.2 g/dL 3.4 - 5.0 [facility] [employer] Work Phone: [phone] ALP [Catalytic activity/Vol] 75 U/L 33 - 136 [facility] [employer] Work Phone: [phone] ALT With P-5'-P [Catalytic activity/Vol] 14 U/L 7 - 45 [facility] [employer] Work Phone: [phone] Comment on above: Patients treated wit h Sulfasalazine may generate falsely decreased results for ALT. Anion gap [Moles/Vol] 12 mmol/L 10 - 20 [facility] [employer] Work Phone: [phone] AST With P-5'-P [Catalytic activity/Vol] 14 U/L 9 - 39 [facility] [employer] Work Phone: [phone] Bilirubin [Mass/Vol] 0.3 mg/dL 0.0 - 1.2 [facility] [employer] Work Phone: [phone] Calcium [Mass/Vol] 9.2 mg/dL 8.6 - 10.3 [facility] [employer] Work Phone: [phone] Chloride [Moles/Vol] 103 mmol/L 98 - 107 [facility] [employer] Work Phone: [phone] CO2 [Moles/Vol] 27 mmol/L 21 - 32 [facility] [employer] Work Phone: [phone] Creatinine [Mass/Vol] 0.79 mg/dL See Below [facility] [address] Work Phone: [phone] Comment on above: Reference Range: 0.5 0 - 1.05 Glucose [Mass/Vol] 101 mg/dL above high threshold 74 - 99 [facility] [address] Work Phone: [phone] Potassium [Moles/Vol] 4.3 mmol/L 3.5 - 5.3 [facility] [address] Work Phone: [phone] Protein [Mass/Vol] 7.0 g/dL 6.4 - 8.2 [facility] [employer] Work Phone: [phone] Sodium [Moles/Vol] 138 mmol/L 136 - 145 [facility] [address] Work Phone: [phone] Thiamine (Bld) [Mass/Vol] 122 nmol/L 70-180 [facility] [address] Work Phone: [phone] Comment on above: INTERPRETIVE INFORMA TION: Vitamin B1, Whole BloodThis assay measures the concentration of thiamine diphosphate (TDP), the primary active form of vitamin B1. Approximately 90 percent of vitamin B1 present in whole blood is TDP. Thiamine and thiamine monophosphate, which comprise the remaining 10 percent, are not measured.This test was developed and its performance characteristics determined by [facility]. It has not been cleared or approved by the US Food and Drug Administration. This test was performed in a CLIA certified laboratory and is intended for clinical purposes.Performed By: [facility] [place] [id number] Director: Johnathon Talbert MD, PhD Urea nitrogen [Mass/Vol] 18 mg/dL 6 - 23 [facility] [place] [address] [address] Work Phone: [phone] Laboratory - Hematology and Cell countson 03-07-2022 Erythrocyte distribution width (RBC) [Ratio] 13.2 % See Below [facility] [address] Work Phone: [phone] Comment on above: Reference Range: 11. 5 - 14.5 Hematocrit (Bld) [Volume fraction] 39.3 % See Below [facility] [address] Work Phone: [phone] Comment on above: Reference Range: 36. 0 - 46.0 Hemoglobin (Bld) [Mass/Vol] 13.2 g/dL See Below [facility] [address] Work Phone: [phone] Comment on above: Reference Range: 12. 0 - 16.0 MCHC (RBC) [Mass/Vol] 33.6 g/dL See Below [facility] [address] Work Phone: [phone] Comment on above: Reference Range: 32. 0 - 36.0 MCV (RBC) [Entitic vol] 95 fL 80 - 100 [facility] [address] Work Phone: [phone] Platelets (Bld) [#/Vol] 225 10*3/uL 150 - 450 [facility] [address] Work Phone: [phone] RBC (Bld) [#/Vol] 4.15 {x10E12/L} See Below [facility] [address] Work Phone: [phone] Comment on above: Reference Range: 4.0 0 - 5.20 WBC (Bld) [#/Vol] 5.5 10*3/uL 4.4 - 11.3 [facility] [address] Work Phone: [phone] Mamm - Screening Mammogram w / Tomosynthesison 03-07-2022 MG Breast Screening Normal [facility] [address] Work Phone: [phone] No Panel Informationon 03-07 0.80 1 See Below [facility] [address] Work Phone: [phone] Comment on above: Reference Range: 0.2 6 - 1.65 Undetected antigen excess is a rare event but cannot be excluded. If these free light chain results do not agree with other clinical or laboratory findings, or if the sample is from a patient that has previously demonstrated antigen excess, the result must be checked by retesting at a higher sample dilution. Results should always be interpreted in conjunction with other laboratory tests and clinical evidence; any anomalies should be discussed with the testing laboratory. 2.34 mg/dL See Below [facility] [address] Work Phone: [phone] Comment on above: Reference Range: 0.5 7 - 2.63 1.87 mg/dL See Below [facility] [address] Work Phone: [phone] Comment on above: Reference Range: 0.3 3 - 1.94 84 {mL/min/1.73m2} >90 [facility] [address] Work Phone: [phone] Comment on above: CALCULATIONS OF YOLANDA MATED GFR ARE PERFORMED USING THE 2020 CKD-EPI STUDY REFIT EQUATION WITHOUT THE RACE VARIABLE FOR THE IDMS-TRACEABLE CREATININE METHODS.https://jasn.asnjournals.org/content/early//ASN. 2528238429 TSHon 03-07-2022 TSH Qn 2.58 m[IU]/L Normal 0.44 - 3.98 [facility] Comment on above: Result Comment: TSH testing is performed using different testing methodology at [facility] than at other [facility]. Direct result comparisons should only be made within the same method. Performed By: #### T SH2 #### [address] [address] TSH - Thyroid Stimulating Ho rmone, Serumon 03-07-2022 TSH Qn 2.58 m[IU]/L See Below [facility] [address] Work Phone: [phone] Comment on above: Reference Range: 0.4 4 - 3.98 TSH testing is performed using different testing methodology at [facility] than at [facility]. Direct result comparisons should only be made within the same method. VITAMIN B12on 03-07-2022 Cobalamin (Vitamin B12) [Mass/Vol] 551 pg/mL Normal 211 - 911 [facility] Comment on above: Performed By: #### C BCDF #### [address] [address] Vitamin B12, Serumon 022 Cobalamin (Vitamin B12) [Mass/Vol] 551 pg/mL 211 - 911 [facility] [address] Work Phone: DEVICE SALES CONSULTANT - Office Visiton DEVICE SALES CONSULTANT - Office Visit Diagnoses/Problems Health Maintenance/Risks Encounter for preventive health examination (V70.0) (Z00.00) Assessed Visit for screening mammogram (V76.12) (Z12.31) Menopause (627.2) (Z78.0) Bulky or enlarged uterus (621.2) (N85.2) Orders Ultrasound Pelvis Transabdominal With Transvaginal; Status:Hold For - Scheduling; Requested for:[id number]; Radiologist to Determine Optimal Study : Y What are the patient's signs and symptoms? : Enlarged uterus on physical exam PAP [employer]ERCIAL INTERN, Cytology; Status:In Progress - Specimen/Data Collected,Retrospective Authorization; Done: [id number] Last Menstrual Period (LMP): : ALBERTO PAP - Site : CERVICAL Cytology Order : ThinPrep PAP, Screening, HPV CoTest - Exclude Genotyping Mamm - Screening Mammogram w/ Tomosynthesis; Status:Hold For - Scheduling; Requested for:[id number]; Radiologist to Determine Optimal Study : Y What are the patient's signs and symptoms ? : Annual Screening Mammogram Provider Impressions Patient is a 61-year-old woman who comes in for routine COMMERCIAL INTERN exam Pap smear and cotesting done. Mammogram ordered. Declined colonoscopy. On physical exam her uterus was extremely anteverted and possibly enlarged we will get an ultrasound and call patient with any abnormal test results otherwise follow-up in 1 year Chief Complaint NEW Patient is here for yearly exam. Patient does self breast exams regularly. LMP ALBERTO PT HAS NO CONCERNS. History of Present IllnessPatient is a 61-year-old woman who comes in for routine COMMERCIAL INTERN exam. Patient denies a history of abnormal Pap smears. Patient reports she is menopausal and still has all her organs in. Patient reports she does self breast exams and is not due for mammogram until February. Patient refuses a colonoscopy but she reports she had Cologuard this year and it was negative Review of Systems Constitutional: Denies any significant change in weight. Cardiovascular: Denies any chest pain or palpitations. Respiratory: Is any shortness of breath or cough. Gastrointestinal: Denies any changes in bowel habits or abdominal pain. Genitourinary: as noted in HPI. Musculoskeletal: Denies any significant change in her mobility. Psychiatric: Denies any change in her mood or in her sleeping pattern. Active Problems Problems Acute right-sided low back pain without sciatica (724.2) (M54.50) Biceps strain, initial encounter (840.8) (S46.219A) Visit for screening mammogram (V76.12) (Z12.31) Past Medical History Problems H/O miscarriage, not currently (V13.29) (Z87.59) History of (V13.29) (Z87.59) History of mammogram (V15.89) (Z92.89) 01/2021 History of Menstruation Onset age 11 years History of Normal vaginal delivery (650) (O80) 11/1979_FT_Female_7# 3oz 04/1982_42weeks_Male_9# 1oz 04/1987_FT_Male_7# 9oz 05/1989_FT_Male_7# 8oz History of Pap test, as part of routine gynecological examination (V76.2) (Z01.419) 07/2020 Surgical History Problems History of Cholecystectomy History of Elbow surgery History of Knee replacement History of Tubal ligation bilateral History of Mallard tooth extraction Family History Mother No pertinent family history Father No pertinent family history Allergies Medication iodine Recorded By: Brit Warren; 11/11/2021 1:43:32 PM NonMedication Mold Recorded By: Brit Warren; 11/11/2021 1:43:32 PM Tomatoes Recorded By: Brit Warren; 11/11/2021 1:43:32 PM Current Meds Medication NameInstruction Cyanocobalamin 1000 MCG/ML Injection Solution Estradiol 0.1 MG/GM Vaginal Cream Multi Complete Oral Capsule TEGretol-XR 400 MG Oral Tablet Extended Release 12 Hour Vitamin D-3 TABS Vitals Vital Signs Recorded: [id number] 01:47PM Gfuwduys988 Gubsahqtu05 Height5 ft 2 in Kfjpqw571 lb 5.50 oz BMI Utqdplmffg98.1 kg/m2 BSA Calculated2.24 LMPMENO Physical Exam Constitutional: Pleasant woman in no physical distress. Head and Face: No obvious lesions. Neck: Supple without adenopathy or masses. Cardiovascular: Regular rate and rhythm. Pulmonary: Clear to auscultation with good air movement. Chest: No discrete masses discharge retraction or skin changes. Abdomen: Soft nontender no masses. External genitalia revealed no lesions the vagina was well estrogenized the cervix was nonfriable you the uterus and large. Adnexa were difficult to appreciate secondary to habitus Musculoskeletal: Good mobility of her extremities. Psychiatric: Appropriately oriented with normal mood and affect. Signatures Electronically signed by : Gena Bush DO; Nov 11 2021 2:05PM EST (Author) Normal Touchworks CBC AND DIFFERENTIALon 07-18 Basophils (Bld) [#/Vol] 0.00 10*3/uL Normal 0.00 - 0.10 [facility] Comment on above: Performed By: #### C BCDF #### [address] [address] Basophils/100 WBC (Bld) 0.5 % Normal 0.0 - 2.0 [facility] Comment on above: Performed By: #### C BCDF #### [address] [address] Eosinophils (Bld) [#/Vol] 0.10 10*3/uL Normal 0.00 - 0.70 [facility] Comment on above: Performed By: #### C BCDF #### [address] [address] Eosinophils/100 WBC (Bld) 1.1 % Normal 0.0 - 6.0 [facility] Comment on above: Performed By: #### C BCDF #### [address] [address] Erythrocyte distribution width (RBC) [Ratio] 14.0 % Normal 11.5 - 14.5 [facility] Comment on above: Performed By: #### C BCDF #### [address] [address] Hematocrit (Bld) [Volume fraction] 39.0 % Normal 36.0 - 46.0 [facility] Comment on above: Performed By: #### C BCDF #### [address] [address] Hemoglobin (Bld) [Mass/Vol] 13.4 g/dL Normal 12.0 - 16.0 [facility] Comment on above: Performed By: #### C BCDF #### [address] [address] Lymphocytes (Bld) [#/Vol] 1.80 10*3/uL Normal 1.20 - 4.80 [facility] Comment on above: Performed By: #### C BCDF #### [address] [address] Lymphocytes/100 WBC (Bld) 30.9 % Normal 13.0 - 44.0 [facility] Comment on above: Performed By: #### C BCDF #### [address] [address] MCHC (RBC) [Mass/Vol] 34.3 g/dL Normal 32.0 - 36.0 [facility] Comment on above: Performed By: #### C BCDF #### [address] [address] MCV (RBC) [Entitic vol] 93 fL Normal 80 - 100 [facility] Comment on above: Performed By: #### C BCDF #### [address] [address] Monocytes (Bld) [#/Vol] 0.30 10*3/uL Normal 0.10 - 1.00 [facility] Comment on above: Performed By: #### C BCDF #### [address] [address] Monocytes/100 WBC (Bld) 5.6 % Normal 2.0 - 10.0 [facility] Comment on above: Performed By: #### C BCDF #### [address] [address] Neutrophils (Bld) [#/Vol] 3.60 10*3/uL Normal 1.20 - 7.70 [facility] Comment on above: Result Comment: Perc ent differential counts (%) should be interpreted in the context of the absolute cell counts (cells/L). Performed By: #### C BCDF #### [address] [place] [address] Neutrophils/100 WBC (Bld) 61.9 % Normal 40.0 - 80.0 [facility] Comment on above: Performed By: #### C BCDF #### [address] [address] Platelets (Bld) [#/Vol] 229 10*3/uL Normal 150 - 450 [facility] Comment on above: Performed By: #### C BCDF #### [address] [address] RBC 4.20 x10E12/L Normal 4.00 - 5.20 [facility] Comment on above: Performed By: #### C BCDF #### [address] [address] WBC (Bld) [#/Vol] 5.8 10*3/uL Normal 4.4 - 11.3 [facility] Comment on above: Performed By: #### C BCDF #### [place] [id number] COMPREHENSIVE PANELon 2021 Albumin [Mass/Vol] 4.3 g/dL Normal 3.4 - 5.0 [facility] Comment on above: Performed By: #### C MP #### [address] [address] ALP [Catalytic activity/Vol] 77 U/L Normal 33 - 136 [facility] Comment on above: Performed By: #### C MP #### [address] [address] ALT [Catalytic activity/Vol] 17 U/L Normal 7 - 45 [facility] Comment on above: Result Comment: Makenna ents treated with Sulfasalazine may generate falsely decreased results for ALT. Performed By: #### C MP #### [address] [address] Anion gap [Moles/Vol] 13 mmol/L Normal 10 - 20 [facility] Comment on above: Performed By: #### C MP #### [address] [address] AST [Catalytic activity/Vol] 20 U/L Normal 9 - 39 [facility] Comment on above: Result Comment: MILD HEMOLYSIS DETECTED. The result may be falsely elevated due to hemolysis or other interferents. Clinical correlation is recommended. Repeat testing may be considered. Performed By: #### C MP #### [address] [address] Bilirubin [Mass/Vol] 0.3 mg/dL Normal 0.0 - 1.2 [facility] Comment on above: Performed By: #### C MP #### [address] [address] Calcium [Mass/Vol] 9.4 mg/dL Normal 8.6 - 10.3 [facility] Comment on above: Performed By: #### C MP #### [address] [address] Chloride [Moles/Vol] 101 mmol/L Normal 98 - 107 [facility] Comment on above: Performed By: #### C MP #### [address] [address] Creatinine [Mass/Vol] 0.69 mg/dL Normal 0.50 - 1.05 [facility] Comment on above: Performed By: #### C MP #### [address] [address] eGFR FEMALE >90 Normal >90 [facility] Comment on above: Result Comment: CALC ULATIONS OF ESTIMATED GFR ARE PERFORMED USING THE 2020 CKD-EPI STUDY REFIT EQUATION WITHOUT THE RACE VARIABLE FOR THE IDMS-TRACEABLE CREATININE METHODS. https://jasn.asnjournals.org/content/early//ASN.18312215 88 Performed By: #### C MP #### [address] [address] Glucose [Mass/Vol] 88 mg/dL Normal 74 - 99 [facility] Comment on above: Performed By: #### C MP #### [address] [address] HCO3 (Bld) [Moles/Vol] 28 mmol/L Normal 21 - 32 [facility] Comment on above: Performed By: #### C MP #### [address] [address] Potassium [Moles/Vol] 4.7 mmol/L Normal 3.5 - 5.3 [facility] Comment on above: Result Comment: MILD HEMOLYSIS DETECTED. The result may be falsely elevated due to hemolysis or other interferents. Clinical correlation is recommended. Repeat testing may be considered. Performed By: #### C MP #### [address] [address] Protein [Mass/Vol] 7.3 g/dL Normal 6.4 - 8.2 [facility] Comment on above: Performed By: #### C MP #### [address] [address] Sodium [Moles/Vol] 137 mmol/L Normal 136 - 145 [facility] Comment on above: Performed By: #### C MP #### [address] [address] Urea nitrogen [Mass/Vol] 18 mg/dL Normal 6 - 23 [facility] Comment on above: Performed By: #### C MP #### [address] [address] LIPID PANEL (CORONARY RISK 2 )on 07-18-2021 Cholesterol [Mass/Vol] 259 mg/dL High 0 - 199 [facility] Comment on above: Result Comment: . AGE DESIRABLE BORDERLINE HIGH HIGH 0-19 Y 0 - 169 170 - 199 >/= 200 20-24 Y 0 - 189 190 - 224 >/= 225 >24 Y 0 - 199 200 - 239 >/= 240 All ranges are based on fasting samples. Specific therapeutic targets will vary based on patient-specific cardiac risk. . Pediatric guidelines reference:Pediatrics 2011, 128(S5). Adult guidelines reference: NCEP ATPIII Guidelines, AROLDO 2001, 258:2486-97 . Venipuncture immediately after or during the administration of Metamizole may lead to falsely low results. Testing should be performed immediately prior to Metamizole dosing. Performed By: #### L IPID #### [address] [address] Cholesterol in HDL [Mass/Vol] 86.0 mg/dL Normal [facility] Comment on above: Result Comment: . AGE VERY LOW LOW NORMAL HIGH 0-19 Y < 35 < 40 40-45 ---- 20-24 Y ---- < 40 >45 ---- >24 Y ---- < 40 40-60 >60 . Performed By: #### L IPID #### [address] [address] Cholesterol in LDL [Mass/Vol] 156 mg/dL High 0 - 99 [facility] Comment on above: Result Comment: . NEAR BORD AGE DESIRABLE OPTIMAL HIGH HIGH VERY HIGH 0-19 Y 0 - 109 --- 110-129 >/= 130 ---- 20-24 Y 0 - 119 --- 120-159 >/= 160 ---- >24 Y 0 - 99 100-129 130-159 160-189 >/=190 . Performed By: #### L IPID #### [address] [address] Cholesterol in VLDL [Mass/Vol] 17 mg/dL Normal 0 - 40 [facility] Comment on above: Performed By: #### L IPID #### [address] [address] Cholesterol.total/C holesterol in HDL [Mass ratio] 3.0 {ratio} Normal [facility] Comment on above: Result Comment: REF VALUES DESIRABLE < 3.4 HIGH RISK > 5.0 Performed By: #### L IPID #### [address] [address] Triglyceride [Mass/Vol] 87 mg/dL Normal 0 - 149 [facility] Comment on above: Result Comment: . AGE DESIRABLE BORDERLINE HIGH HIGH VERY HIGH 0 D-90 D 19 - 174 ---- ---- ---- 91 D- 9 Y 0 - 74 75 - 99 >/= 100 ---- 10-19 Y 0 - 89 90 - 129 >/= 130 ---- 20-24 Y 0 - 114 115 - 149 >/= 150 ---- >24 Y 0 - 149 150 - 199 200- 499 >/= 500 . Venipuncture immediately after or during the administration of Metamizole may lead to falsely low results. Testing should be performed immediately prior to Metamizole dosing. Performed By: #### L IPID #### [address] [address] THYROXINE,FREEon 07-18-2021 THYROXINE,FREE 0.68 ng/dL Normal 0.61 - 1.12 [facility] [place] Comment on above: Result Comment: Thyr oxine Free testing is performed using different testing methodology at [facility] than at other [facility]. Direct result comparisons should only be made within the same method. . Biotin can cause falsely elevated free T4 results. Patients taking a Biotin dose of up to 10 mg/day should refrain from taking Biotin for 24 hours before sample collection. Patient taking a Biotin dose of >10 mg/day should consult with their physician or the laboratory before the blood draw. Performed By: #### T 4FRE #### [place] [id number] TSHon 07-18-2021 TSH Qn 3.07 m[IU]/L Normal 0.44 - 3.98 [facility] Comment on above: Result Comment: TSH testing is performed using different testing methodology at [facility] than at other [facility]. Direct result comparisons should only be made within the same method. Performed By: #### T SH2 #### [address] [address] CNPNon 07-06-2021 CNPN Telephone (JOHAN) VANI ESCOBAR ([id number]) 1960 [facility] Date Time Provider Department 07/06/21 KATRIN SANTAMARIA During your visit today, we recorded the following information about you: Merary Aviles MA 07/06/2021 2:05 PM Signed Requesting estradiol vaginal 42.5gm 0.01% last seen Dr Donis 03/26/2020 LM to make appt for AE. vm Allergies As of Date: 07/06/2021 Noted Allergy Reaction IODINE 06/22/2011 7 - Swelling LOBSTER (CRUSTACEANS) 06/22/2011 7 - Swelling SEASONAL ALLERGIES 10/18/2018 5 - Intolerance TOMATOES 08/13/2013 4 - Hives Comments: When ingesting tomatoes in large amounts Date Reviewed: 02/13/2020 Reviewed by: Maddi Donis - Fully Assessed Reason for Visit: Refill Request [94] Cmt: Estradiol vaginal cream 42.5 gm Prescriptions as of 07/06/2021 - mometasone (ELOCON) 0.1 % cream Apply to affected area as directed. Twice daily for 2 weeks, daily for 2 weeks, every other day for 2 weeks then twice weekly - estradiol (ESTRACE) 0.01 % (0.1 mg/gram) vaginal cream INSERT 2 GRAMS VAGINALLY ONE TO TWO TIMES WEEKLY DISCUSSED - nystatin (MYCOSTATIN) cream Apply 1 application to affected area twice daily. - cetirizine (ZYRTEC) 10 mg tablet Take 1 tablet by mouth once daily. - cyanocobalamin 1,000 mcg/mL soln INJECT 1 ML INTO THE MUSCLE ONCE EVERY MONTH DIRECTED. DISCARD AFTER 28 DAYS - meclizine (ANTIVERT) 12.5 mg tab Take 2 tablets by mouth three times daily. - TEGRETOL XR 400 mg 12 hr tablet TAKE 1 TABLET THREE TIMES A DAY - TEGRETOL XR 400 mg 12 hr tablet Take 1 tablet by mouth three times daily. - methocarbamol (ROBAXIN) 500 mg tablet Take 1 tablet by mouth three times daily as needed. - magnesium oxide (MAG-OX) 400 mg tablet Take 1 tablet by mouth as needed. - ibuprofen (MOTRIN) 800 mg tablet Take 1 tablet by mouth every 8 hours as needed for Pain. - cyclobenzaprine (FLEXERIL) 5 mg tablet Take 1 tablet by mouth every 8 hours as needed for Muscle Spasm (or pain). Problem List As Of Date 07/06/2021 Noted Resolved Seizure [R56.9] 05/21/2013 Asthma [J45.909] 05/21/2013 Obesity [E66.9] Obesity, Class III, BMI >= 40 [E66.01] 10/18/2018 Disc degeneration, lumbosacral [M51.37] 05/11/2009 Lumbar radiculopathy [M54.16] 08/11/2008 Lipoma [D17.9] 03/14/2004 Encounter Status:Closed by MERARY AVILES on 07/06/21 Normal [facility] XR FOOT LEFT 3+ VIEWS (STAND PJ)on 05-16-2021 XR FOOT LEFT 3+ VIEWS (STANDARD) No fractures or dislocations noted. Joint space narrowing noted across the midfoot tarsometatarsals joints especially over the second and third tarsometatarsal joints. Large calcaneal enthesophyte noted. Sclerosis noted to the posterior facet of the subtalar joint. Dictated by: CHARLY REYES on SunMay 16, 2021 9:32:22 PM EST Transcribed by: CHARLY REYES on SunMay 16, 2021 9:32:22 PM EST Finalized by: CHARLY REYES on SunMay 16, 2021 9:32:22 PM EST [facility] Comment on above: Order Comment: Injur y/Trauma or Illness?:Injury/Trauma How long have you had these symptoms (acute/chronic)?:Chronic Reason for exam?:right foot pain x 30 years History of cancer?:no Surgeries, chemotherapy, or radiation?:no Type of Exam?:Initial Mechanism of injury?:none XR FOOT RIGHT 3+ VIEWS (CANDIDO DARD)on 05-16-2021 XR FOOT RIGHT 3+ VIEWS (STANDARD) No fractures or dislocations noted. Joint space narrowing noted across the midfoot tarsometatarsals joints especially over the second and third tarsometatarsal joints. Large calcaneal enthesophyte noted. Sclerosis noted to the posterior facet of the subtalar joint. Dictated by: CHARLY REYES on SunMay 16, 2021 9:32:09 PM EST Transcribed by: CHARLY REYES on SunMay 16, 2021 9:32:09 PM EST Finalized by: CHARLY REYES on SunMay 16, 2021 9:32:09 PM EST [facility] Comment on above: Order Comment: Injur y/Trauma or Illness?:Injury/Trauma How long have you had these symptoms (acute/chronic)?:Chronic Reason for exam?:right foot pain x 30 years History of cancer?:no Surgeries, chemotherapy, or radiation?:no Type of Exam?:Initial Mechanism of injury?:none XR Foot Left 3+ Views (Stand pj)on 05-16-2021 No fractures or dislocations noted. Joint space narrowing noted across the midfoot tarsometatarsals joints especially over the second and third tarsometatarsal joints. Large calcaneal enthesophyte noted. Sclerosis noted to the posterior facet of the subtalar joint. [employer] [facility] Radiology Study observation (narrative) [facility] XR Foot Right 3+ Views (Candido dard)on 05-16-2021 No fractures or dislocations noted. Joint space narrowing noted across the midfoot tarsometatarsals joints especially over the second and third tarsometatarsal joints. Large calcaneal enthesophyte noted. Sclerosis noted to the posterior facet of the subtalar joint. [employer] [facility] Radiology Study observation (narrative) [facility] CNCOon 02-02-2021 CNCO HNO ID: [id number] Author: Mammography Coordinator Service: ? Author Type: Physician Type: Letter Filed: 02/03/2021 11:33 PM Note Text: [address] [address] February 02, 2021 PID: [id number] Vani Escobar [address] [place] [address] Dear Ms. Escobar, We are pleased to inform you that the results of your recent breast imaging exam on 02/01/2021 are normal. Early detection of cancer is very important. We also understand recommendations regarding breast cancer screening are controversial. Please discuss with your primary care provider which strategy is best for you and whether a mammogram is right for you. Your imaging studies and report will be kept on file at [facility] as part of your permanent medical record and are available for your continuing care. Thank you for allowing us to help in meeting your health care needs. Sincerely, Dr. Zayas Interpreting Radiologist [facility] (Normal over 40) Normal [facility] KAYLAH SCREENING W TOMOon 11-27 KAYLAH SCREENING W IVORY * * *Final Report* * * DATE OF EXAM: Nov 27 2018 11:10AM RAVI [id number] - [facility] SCREENING W IVORY / PROCEDURE REASON: z12.31 screening * * * * Physician Interpretation * * * * #[id number] - [facility] SCREENING W IVORY BILATERAL DIGITAL SCREENING MAMMOGRAM TOMOSYNTHESIS WITH CAD: 11/27/2018 HISTORY: Z12.31 Screening /Screening Mammogram-Patient reports NO symptoms. RESULT: TECHNIQUE: The study was acquired using full field digital technology and interpreted from soft copy. Digital Breast Tomosynthesis (DBT) images were obtained and used to assist in the interpretation of this examination. Current study was also evaluated with a Computer Aided Detection (CAD). Comparison is made to exams dated: 11/07/2017 mammogram and 10/19/2016 mammogram - [facility]. The tissue of both breasts is predominantly fatty. No significant masses, calcifications, or other findings are seen in either breast. There has been no significant interval change. IMPRESSION: NEGATIVE There is no mammographic evidence of malignancy. A 1 year screening mammogram is recommended. Jp mcgrath/rosemarie:11/27/2018 15:04:08 Operations And Maintenance Specialist(s): RT Amor(Alfonso)(M), [facility] letter sent: Normal over 40 Mammogram BI-RADS: 1 Negative Multiple national specialty organizations have released breast cancer screening guidelines for women at average risk for developing breast cancer - guidelines that are based on both evidence and opinion, yet differ on when to start and how often to screen for breast cancer. With representation from Breast Imaging, Internal Medicine, Women's Health, Family Medicine, and Medical/Surgical Oncology, the [facility] has carefully reviewed the data and reached the following consensus: 1) All women should engage in shared decision-making with their providers to decide when to start and how often to screen; 2) All women should have the opportunity to start screening mammography at age 40; 3) For women ages 45-55, we recommend annual screening mammograms; 4) For women ages 55 and over, we support both the transition from an annual to a biennial interval if this aligns more with patient's values and preferences, or continuation with annual screening; 5) All women should discuss with their providers when to stop screening mammograms. [employer] Dist[employer]: Rosemarie Transcribe Date/Time: Nov 27 2018 10:55A Dictated by : JP MARRERO MD This examination was interpreted and the report reviewed and electronically signed by: JP MARRERO MD on Nov 27 2018 3:04PM EST [id number] [facility] PROGRESSon 11-27-2018 PROGRESS HNO ID: [id number] Author: Marcial Chinchilla (Rt) Service: Radiology Author Type: Stem Roller Operator Type: Progress Notes Filed: 11/27/2018 11:10 AM Note Text: Radiology Service Progress Note PATIENT NAME: VANI Escobar DATE OF SERVICE: November 27, 2018 TIME: 11:10 AM PATIENT IDENTITY VERIFICATION COMPLETED USING TWO (2) METHODS: Patient confirmed name verbally and ID band matches.. PATIENT GENDER DATA: Female. status: : No status: NO. PATIENT RELEVANT IMPLANT DATA REVIEWED: Not Applicable RADIOLOGY DEPARTMENT: Mammography PERIPHERAL IV DATA: Not applicable SIGNED BY: RT Amor November 27, 2018 11:10 AM [facility] HPV High Riskon 10-22-2018 HPV High Risk SEE BELOW [facility] Comment on above: Result Comment: HPV HighRisk Type 16 SEE BELOW Negative for HPV DNA high risk type 16 by PCR. HPV HighRisk Type 18 SEE BELOW Negative for HPV DNA high risk type 18 by PCR. HPV HighRisk Other SEE BELOW Negative for HPV DNA high risk types: 31,33,35,39,45,51,52,56,58,59,66,68 by PCR. This test was developed and its performance characteristics determined by [facility] Pathology and Laboratory Medicine [place] ([facility]). It has not been cleared or approved by the FDA. -[facility] is regulated under CLIA as qualified to perform high-complexity testing. This test is used for clinical purposes. It should not be regarded as investigational or for research. Performing Laboratory: [facility] [address] [place] [address] Performed By: #### H PVRX #### [place] [address] HPV High Riskon 10-21-2018 Cytology [facility] Comment on above: Performed By: #### H PVRX #### [facility] [address] [place] [id number] Pap,Cyto Gynon 10-18-2018 Pap,Cyto Cashier General Test performed at [place] [address] NAME: VANI ESCOBAR REQUESTING: MADDI DONIS MD SPECIMEN: TP CERVICAL/ENDOCERVICAL HPV REGARDLESS Relevant History: Menopause: Y, SPECIMEN ADEQUACY SATISFACTORY FOR EVALUATION. ENDOCERVICAL/TRANSFORMA TION ZONE COMPONENTS ABSENT. INTERPRETATION/RESULT NEGATIVE FOR INTRAEPITHELIAL LESION OR MALIGNANCY. ANCILLARY TESTING Negative for HPV DNA high risk type 16 by PCR. Please see additional report from [facility]. Negative for HPV DNA high risk type 18 by PCR. Please see additional report from [facility]. Negative for HPV DNA high risk types: 31, 33, 35, 39, 45, 51, 52, 56, 58, 59, 66, 68 by PCR. Please see additional report from [facility]. Electronically signed: 11/18/2018 Screened by: ARIN GRULLON (ASCP) Signed Out by: ARIN FINNEY(ASCP) The Pap test serves as a screening tool for early detection of cervical cancer. The Pap test does not represent a final diagnostic test for cervical cancer. Furthermore, the Pap test was not designed to screen for other malignancies (endometrial, ovarian cancer, etc....). False negatives and false positives have occurred. If clinically indicated, further patient evaluation is recommended. Printed on: November 18, 2018 Page 1 of 1 Normal [facility] Comment on above: Performed By: #### C YTOP #### [place] [id number] Auto Diffon 01-05-2018 Basophils Auto #/vol (Bld) 0.0 E3/mcL Normal 0.0-0.2 [facility] Comment on above: Order Comment: Order Added by Discern Expert. Performed By: #### 2 [id number] ####KAMILLA SrcNvyn5815 [place] [address] Basophils/100 WBC Auto (Bld) 0.7 % Normal 0.0-2.0 [facility] Comment on above: Order Comment: Order Added by Discern Expert. Performed By: #### 2 [id number] ####KAMILLA HackettOgaZkos8828 [place] [address] Eos Absolute 0.1 E3/mcL Normal 0.0-0.7 [facility] Comment on above: Order Comment: Order Added by Discern Expert. Performed By: #### 2 [id number] ####KAMILLA Pao1025 [place] [address] Eosinophils/100 WBC Auto (Bld) 1.9 % Normal 0.0-11.0 [facility] Comment on above: Order Comment: Order Added by Discern Expert. Performed By: #### 2 [id number] ####KAMILLA HackettLxyInjw3890 [place] [address] Lymphocytes Auto #/vol (Bld) 1.5 E3/mcL Normal 1.2-3.4 [facility] Comment on above: Order Comment: Order Added by Discern Expert. Performed By: #### 2 [id number] ####KAMILLA HackettBqoJocg2702 [place] [address] Lymphocytes/100 WBC Auto (Bld) 25.6 % Normal 20.0-55.0 [facility] Comment on above: Order Comment: Order Added by Discern Expert. Performed By: #### 2 [id number] ####KAMILLA HackettLbuJlnh3571 [place] [address] Benton Absolute 0.4 E3/mcL Normal 0.0-0.7 [facility] Comment on above: Order Comment: Order Added by Discern Expert. Performed By: #### 2 [id number] ####KAMILLA HackettBogRquy8270 [place] [address] Monocytes/100 WBC Auto (Bld) 6.7 % Normal 0.0-10.0 [facility] Comment on above: Order Comment: Order Added by Discern Expert. Performed By: #### 2 [id number] ####KAMILLA HackettEmqNgam5335 [place] [address] Neutro Absolute 3.9 E3/mcL Normal 1.4-6.5 [facility] Comment on above: Order Comment: Order Added by Discern Expert. Performed By: #### 2 [id number] ####KAMILLA Pao1025 [place] [address] Neutro Auto 65.1 % Normal 37.0-75.0 [facility] Comment on above: Order Comment: Order Added by Discern Expert. Performed By: #### 2 [id number] ####KAMILLA Pao1025 [place] [address] BMPon 01-05-2018 Creatinine mass conc 0.8 mg/dL Normal 0.6-1.3 [facility] Comment on above: Performed By: #### 2 [id number] ####KAMILLA HackettAtySunm3228 [place] [address] Urea nitrogen mass conc 15 mg/dL Normal 7-18 [facility] Comment on above: Performed By: #### 2 [id number] ####KAMILLA KjsWjtd4618 [place] [address] Urea nitrogen/Creatinine mass ratio 18.8 ratio Normal 5.4-30.0 [facility] Comment on above: Performed By: #### 2 [id number] ####KAMILLA NyxAeog7182 [place] [address] Calcium mass conc 8.7 mg/dL Normal 8.4-10.2 [facility] Comment on above: Performed By: #### 2 [id number] ####KAMILLA SpnVodm2015 [place] [address] Chloride molar conc 103 mmol/L Normal 98-107 [facility] Comment on above: Performed By: #### 2 [id number] ####KAMILLA OksVqar7118 [place] [address] CO2 molar conc 26.4 mmol/L Normal 24.0-30.0 [facility] Comment on above: Performed By: #### 2 [id number] ####KAMILLA CkkCpjg8882 [place] [address] Glucose mass conc 116 mg/dL High 70-99 [facility] Comment on above: Performed By: #### 2 [id number] ####KAMILLA MbxAyvc3104 [place] [address] Potassium molar conc 4.0 mmol/L Normal 3.5-5.1 [facility] Comment on above: Performed By: #### 2 [id number] ####KAMILLA HackettCkkBqiw0621 [place] [address] Sodium molar conc 141 mmol/L Normal 136-145 [facility] Comment on above: Performed By: #### 2 [id number] ####KAMILLA HackettWpzSixj3566 [place] [address] CBC w/ Auto Diffon 8 Erythrocyte distribution width Auto Ratio (RBC) 13.7 % Normal 11.5-14.5 [facility] Comment on above: Performed By: #### 2 [id number] ####KAMILLA Pao1025 [place] [address] Hematocrit Auto Volume Fraction (Bld) 35.1 % Low 36.0-48.0 [facility] Comment on above: Performed By: #### 2 159835 ####KAMILLA Pao1025 [place] [address] Hemoglobin mass conc (Bld) 11.8 g/dL Low 12.0-16.0 [facility] Comment on above: Performed By: #### 2 780674 ####KAMILLA HackettZdnGzwt3646 [place] [address] MCH Auto Entitic mass (RBC) 31.9 pg High 27.0-31.0 [facility] Comment on above: Performed By: #### 2 [id number] ####KAMILLA Pao1025 [place] [address] MCHC Auto mass conc (RBC) 33.6 g/dL Normal 33.0-37.0 [facility] Comment on above: Performed By: #### 2 [id number] ####KAMILLA HackettOjqMyct9014 [place] [address] MCV Auto Entitic volume (RBC) 95.0 fL Normal 78.0-100.0 [facility] Comment on above: Performed By: #### 2 [id number] ####KAMILLA HackettPoeOgiz4575 [place] [address] Platelet mean volume Auto Entitic volume (Bld) 9.4 fL Normal 7.4-11.0 [facility] Comment on above: Performed By: #### 2 [id number] ####KAMILLA HackettObaHank6262 [place] [address] Platelets Auto #/vol (Bld) 191 E3/mcL Normal 130-400 [facility] Comment on above: Performed By: #### 2 [id number] ####KAMILLA HackettNenKomf2142 [place] [address] RBC Auto #/vol (Bld) 3.70 E6/mcL Low 3.90-5.40 [facility] Comment on above: Performed By: #### 2 [id number] ####KAMILLA HackettOynUlmf4443 [place] [address] WBC Auto #/vol (Bld) 6.0 E3/mcL Normal 3.6-11.0 [facility] Comment on above: Performed By: #### 2 [id number] ####KAMILLA HackettXtmBasf6456 [place] [address] CT Head or Brain w/o Contras ton 01-05-2018 CT Head or Brain w/o Contrast Exam Date/Time:01/04/2018 22:47 EDTReason for Exam:StrokeReportSTUDY: CT Head or Brain w/o Contrast; 01/04/2018 10:47 pmINDICATION:Stroke.COM PARISON:None. 435ORDERING CLINICIAN:Siobhan Blair:Jt basurto noncontrast CT images of the head.FINDINGS:BRAIN PARENCHYMA: Durand-white matter interfaces are preserved. No mass effect or midline shift.HEMORRHAGE: No acute intracranial hemorrhage.VENTRICLES and EXTRA-AXIAL SPACES: Normal size.EXTRACRANIAL SOFT TISSUES: Within normal limits.PARANASAL SINUSES/MASTOIDS: The visualized paranasal sinuses and mastoid air cells are aerated.CALVARIUM: No depressed skull fracture. No destructive osseous lesion.OTHER FINDINGS: None.IMPRESSION:No acute intracranial abnormality. FINAL REPORT Dictated: 01/04/2018 11:46 pm Kalpana Hoover MDgned (Electronic Signature): 01/04/2018 11:46 pmSigned by: Kalpana Hoover MD Technologist: EMMA [facility] eGFRon 01-05-2018 eGFR AA >60 [facility] Comment on above: Order Comment: Order added by Discern Expert. Performed By: #### 1 [id number] ####KAMILLA GqbVszu8278 [place] [address] GFR/1.73 sq M predicted among non-blacks MDRD vol rate/area (S/P/Bld) mL/min/{1.73_m2} Normal [facility] Comment on above: Order Comment: Order added by Discern Expert. Performed By: #### 1 [id number] ####KAMILLA CxxHqhg4746 [place] [address] Vital Signs Date Time Vital Sign Value Performing Clinician Facility 11-10-2024 12:09-0400 Diastolic blood pressure 72 mm[Hg] Sahil Jena [employer] Work Phone: [facility] 11-10-2024 12:09-0400 Systolic blood pressure 142 mm[Hg] Sahil Jena [employer] Work Phone: [facility] 11-10-2024 11:33-0400 Body height 157.48 cm Sahil Jena [employer] Work Phone: [facility] 11-10-2024 11:33-0400 Body mass index (BMI) [Ratio] 54.6 kg/m2 Sahil Jena [employer] Work Phone: [facility] 11-10-2024 11:33-0400 Body temperature 98.4 [degF] Sahil Jena [employer] Work Phone: [facility] 11-10-2024 11:33-0400 Body weight 135.45 kg Sahil Ejna [employer] Work Phone: [facility] 11-10-2024 11:33-0400 Heart rate 78 /min [place] Jena [employer] Work Phone: [facility] 11-10-2024 11:33-0400 Respiratory rate 17 /min Sahil Jena [employer] Work Phone: [facility] 11-10-2024 11:33-0400 SaO2% (BldA) [Mass fraction] 94 % Sahil Jena [employer] Work Phone: [facility] 05-28-2024 13:29-0500 Body height 157.5 cm [facility] 05-28-2024 13:29-0500 Body mass index (BMI) [Ratio] 53.04 kg/m2 [facility] 05-28-2024 13:29-0500 Body weight 131.54 kg [facility] 03-24-2023 00:38-0500 Body height 157.5 cm Trent Domínguez MD Work Phone: [facility] 03-24-2023 00:38-0500 Body mass index (BMI) [Ratio] 53.04 kg/m2 Trent Domínguez MD Work Phone: [facility] 03-24-2023 00:38-0500 Body temperature 98.6 [degF] Trent Domínguez MD Work Phone: [facility] 03-24-2023 00:38-0500 Body weight 131.54 kg Trent Domínguez MD Work Phone: [facility] 03-24-2023 00:38-0500 Diastolic blood pressure 92 mm[Hg] Trent Domínguez MD Work Phone: [facility] 03-24-2023 00:38-0500 Heart rate 82 /min Trent Domínguez MD Work Phone: [facility] 03-24-2023 00:38-0500 Respiratory rate 16 /min Trent Domínguez MD Work Phone: [facility] 03-24-2023 00:38-0500 SaO2% (BldA) [Mass fraction] 97 % Trent Domínguez MD Work Phone: [facility] 03-24-2023 00:38-0500 Systolic blood pressure 186 mm[Hg] Trent Domínguez MD Work Phone: [facility] 11-14-2022 10:49-0400 Body height 157.[address] Don Hernandez [facility] 11-14-2022 10:49-0400 Body mass index (BMI) [Ratio] 53.8 kg/m2 Dr. Ochoa [facility] 11-14-2022 10:49-0400 Body temperature 97.8 [degF] Dr. Don Hernandez [facility] 11-14-2022 10:49-0400 Body weight 133.[address] Don Hernandez [facility] 11-14-2022 10:49-0400 Diastolic blood pressure 80 mm[Hg] Dr. Ochoa [facility] 11-14-2022 10:49-0400 Heart rate 81 /min Dr. Don Hernandez [facility] 11-14-2022 10:49-0400 Respiratory rate 17 /min Dr. Ochoa [facility] 11-14-2022 10:49-0400 SaO2% (BldA) [Mass fraction] 96 % Dr. Ochoa [facility] 11-14-2022 10:49-0400 Systolic blood pressure 138 mm[facility]Hg[facility] 05-16-2022 13:08-0500 Body height 157.[address] Don Hernandez Work Phone: [phone] [place] [address] 05-16-2022 13:08-0500 Body mass index (BMI) [Ratio] 53.8 kg/m2 Dr. Don Hernandez Work Phone: [facility] 05-16-2022 13:08-0500 Body temperature 97.5 [degF] Dr. Don Hernandez Work Phone: [facility] 05-16-2022 13:08-0500 Body weight 133.[address] Don Hernandez Work Phone: [facility] 05-16-2022 13:08-0500 Diastolic blood pressure 78 mm[Hg] Dr. Don Hernandez Work Phone: [facility] 05-16-2022 13:08-0500 Heart rate 64 /min Dr. Don Hernandez Work Phone: [facility] 05-16-2022 13:08-0500 Respiratory rate 17 /min Dr. Don Hernandez Work Phone: [facility] 05-16-2022 13:08-0500 SaO2% (BldA) [Mass fraction] 99 % Dr. Don Hernandez Work Phone: [facility] 05-16-2022 13:08-0500 Systolic blood pressure 124 mm[Hg] Dr. Don Hernandez Work Phone: [facility] 06-20-2021 15:34-0400 Diastolic blood pressure 94 mm[Hg] Charly Eric DPM Work Phone: [facility] 06-20-2021 15:34-0400 Heart rate 69 /min Charly Spindale DPM Work Phone: [facility] 06-20-2021 15:34-0400 Systolic blood pressure 162 mm[Hg] Charly Eric DPM Work Phone: [facility] 06-20-2021 15:27-0400 Body temperature 97.7 [degF] Charly Spindale DPM Work Phone: [facility] 05-16-2021 15:10-0500 Body temperature 98.2 [degF] Charly Eric DPM Work Phone: [facility] 05-16-2021 15:10-0500 Diastolic blood pressure 85 mm[Hg] Charly Spindale DPM Work Phone: [facility] 05-16-2021 15:10-0500 Heart rate 70 /min Charly Spindale DPM Work Phone: [facility] 05-16-2021 15:10-0500 Systolic blood pressure 145 mm[Hg] Charly Eric DPM Work Phone: [facility] 11-15-2018 17:46-0400 BMI (Body Mass Index) 49.38 kg/m2 Kate Vail -[facility] Work Phone: 11-15-2018 17:46-0400 Body Temperature 98.1 [...] 1 Kate [facility]ail [facility] Work Phone: Comment on above: Pain Scale Encounters Encounter Date Encounter Type Care Provider Facility Start: 11-10-2024 End: 11-10-2024 ambulatory Sahil Bella [employer] Work Phone: -[facility] Start: 11-10-2024 End: 11-10-[address] Deon Mendoza MD -[facility] Work Phone: Start: 06-18-2024 End: 06-18-2024 ambulatory Deondeidre Hopkins Facility:[facility] Start: 05-28-2024 End: 05-28-2024 Subsequent hospital visit by physician [facility] Comment on above: Encounter for screen ing mammogram for malignant neoplasm of breast Start: 05-28-2024 End: 05-28-2024 ambulatory [facility] Start: 05-26-2024 End: [facility] Start: 01-09-2024 End: 01-09-2024 ambulatory [facility] Facility:[facility] Start: 12-28-2023 End: 12-28-2023 ambulatory [facility] Start: 12-26-2023 [facility] Start: 12-26-2023 End: 12-26-2023 ambulatory [facility] Facility:[facility] Start: 12-03-2023 End: 12-03-2023 ambulatory [facility] Start: 03-24-2023 End: 03-24-2023 Emergency department patient visit Trent Domínguez MD Work Phone: [facility] Comment on above: Shortness of breath (Primary Dx); Hypertension, unspecified type Start: 03-08-2023 End: 03-08-2023 Subsequent hospital visit by physician [facility] Comment on above: Encounter for screen ing mammogram for malignant neoplasm of breast Start: 02-01-2023 End: 02-01-[address] Don Hernandez [facility] Work Phone: Start: 02-01-2023 End: 02-01-[address] Don Hernandez [facility] Work Phone: Start: 01-12-2023 End: 01-12-2023 ambulatory [facility] Start: 01-12-2023 End: 01-12-2023 Encounter for general adult medical examination with abnormal findings DON ERENDIRA DAVID [facility] Start: 11-14-2022 End: 11-14-[address] Don Hernandez [facility] Work Phone: Start: 06-06-2022 End: 06-06-[address] Don Hernandez Work Phone: [facility] Work Phone: Start: 06-06-2022 End: 06-06-[address] Don Hernandez Work Phone: [facility] Start: 05-16-2022 End: 05-16-[address] Don Hernandez Work Phone: [facility] Start: 04-18-2022 Telephone encounter Katrin Santamaria MD Work Phone: [facility] Comment on above: Refill Request Start: 03-13-2022 Chart Update Don Hernandez Work Phone: [address] Work Phone: Start: 03-07-[address] Don Hernandez Facility:[id number] Start: 11-15-[address] Gena Davis ity:[id number] Start: 11-11-2021 Encounter for gynecological examination (general) (routine) without abnormal findings Dr. GENA BUSH [facility] Start: 11-11-2021 Encounter for gynecological examination (general) (routine) without abnormal findings Don Hernandez Facility:[facility] Start: 11-11-2021 ambulatory Don Hernandez Fac ility:[facility] Start: 07-18-2021 Refill Katrin julien MD Work Phone: [facility] Comment on above: Refill Request (Estr adiol vag cream w/appl 42.5 gm 0.01%) Start: 07-06-2021 Telephone encounter Katrin Santamaria MD Work Phone: [facility] Comment on above: Refill Request (Estr adiol vaginal cream 42.5 gm ) Start: 06-20-2021 End: 06-20-2021 ambulatory CHARLY JANELL CANTORR [facility] Start: 06-20-2021 End: 06-20-2021 Office outpatient visit 15 minutes Charlybrittany Cantorr DPM Work Phone: [facility] Comment on above: Primary osteoarthrit is of left foot (Primary Dx); Primary osteoarthritis of right foot; Bilateral foot pain Start: 05-16-2021 End: 05-20-2021 ambulatory CHARLY JANELL CANTORR [facility] Start: 05-16-2021 End: 05-16-2021 Office outpatient new 30 minutes Charlybrittany Cantorr DPM Work Phone: [facility] Comment on above: Primary osteoarthrit is of left foot (Primary Dx); Primary osteoarthritis of right foot; Bilateral foot pain Start: 02-26-2020 End: 03-01-2020 Patient encounter procedure [facility] Start: 02-26-2020 End: 02-26-2020 Patient encounter procedure Emre Ramirez [facility] Comment on above: Radiculopathy, lumba r region (Primary Dx) Start: 02-24-2020 End: 02-28-2020 Patient encounter procedure [facility] Start: 02-24-2020 End: 02-24-2020 Patient encounter procedure Emre Ramirez Work Phone: [facility] Comment on above: Radiculopathy, lumba r region (Primary Dx) Start: 02-17-2020 End: 02-21-2020 Patient encounter procedure [facility] Start: 02-17-2020 End: 02-17-2020 Patient encounter procedure Emre Ramirez Work Phone: [facility] Comment on above: Radiculopathy, lumba r region (Primary Dx) Start: 02-05-2020 End: 02-09-2020 Patient encounter procedure [facility] Start: 02-05-2020 End: 02-05-2020 Patient encounter procedure Emre Ramirez Work Phone: [facility] Comment on above: Radiculopathy, lumba r region (Primary Dx) Start: 02-03-2020 End: 02-07-2020 Patient encounter procedure EMRE DARDEN [facility] Start: 02-03-2020 End: 02-03-2020 Patient encounter procedure Emre Ramirez Work Phone: [facility] Comment on above: Radiculopathy, lumba r region; Sciatica of right side Start: 01-04-2018 End: 01-05-2018 Emergency department patient visit [facility] Facility:[facility] Encounter for gynecological examination (general) (routine) without abnormal findings Don Hernandez Work Phone: [facility] [employer] Work Phone: Comment on above: 07/2020; Patient encounter status Don Hernandez Work Phone: [facility] [employer] Work Phone: Procedures Date Procedure Procedure Detail Performing Clinician Start: 03-08-2023 End: 03-08-2023 Screening digital breast tomosynthesis bi Sahil Bella [employer] Work Phone: Start: 02-01-2023 MRI of lumbar spine Dr. Don Hernandez Start: 01-12-2023 Cyanocobalamin vitamin b-12 SAHIL BELLA Start: 01-12-2023 CARBAMAZEPINE SAHIL FORD Start: 01-12-2023 CBC panel - Blood by Automated count SAHIL BELLA Start: 01-12-2023 Comprehensive metabo lic 2000 panel - Serum or Plasma SAHIL BELLA Start: 01-12-2023 Lipid panel SAHIL BARBOZA Start: 01-12-2023 Lipid 1996 panel - S israel or Plasma [facility] Start: 06-06-2022 Dual energy X-ray absorptiometry Dr. Don Hernandez Work Phone: Start: 03-07-2022 Mammography [facility] Start: 11-11-2021 Microscopic observat ion [Identifier] in Cervix by Cyto stain [facility] Start: 05-16-2021 End: 05-16-2021 Radex foot complete minimum 3 views Charly Reyes DPM Work Phone: Start: 02-01-2021 Mammography Katrin Santamaria MD Work Phone: Start: 11-07-2017 Mammography Charly agee DPM Work Phone: Start: 10-28-2014 Adult depression scr eening assessment Katrin Santamaria MD Work Phone: Arthroplasty of knee Don Hernandez Work Phone: Bilateral tubal ligation Sco gab Bhatia David Work Phone: Cholecystectomy Don hummel Work Phone: Elbow joint operations Don Hernandez Work Phone: Extraction of wisdom tooth S garth Hernandez Work Phone: Plan of Treatment Date Care Activity Detail Author Start: 01-13-2028 Lipid panel Lipid Panel [facility] Start: 12-27-2026 Diabetes mellitus screening Diabetes Screening [facility] Start: 12-27-2024 Hemoglobin A1c measurement Diabetes: Hemoglobin A1C [facility] Start: 11-11-2024 Screening for malign ant neoplasm of cervix [facility] Start: 09-01-2024 Screening for malign ant neoplasm of colon [facility] Start: 03-08-2024 Screening for malign ant neoplasm of breast Mammogram [facility] Start: 12-09-2023 COVID-19 Vaccine ( season) COVID-19 Vaccine ( season) [facility] Start: 10-19-2023 HPV TESTING HPV TESTING [facility] Start: 10-19-2023 PAP TESTING PAP TESTING [facility] Start: 03-07-2023 Screening for malign ant neoplasm of breast Mammogram [facility] Start: 04-09-2022 DEPRESSION ASSESSMENT DEPRESSION ASS ESSMENT [facility] Start: 02-01-2022 Mammography MAMMOGRAM [facility] Start: 12-08-2021 Influenza vaccination C [facility] Start: 08-22-2021 End: 08-22-2021 Patient encounter procedure 08/22/2021 Office Visit Podiatry Charly Reyes, SAMY [address] [place] [address] [facility] Physician [facility] Start: 06-13-2021 End: 06-13-2021 Patient encounter procedure 06/13/2021 Office Visit Podiatry Charly Reyes, SAMY [address] [place] [address] [facility] Physician [facility] Start: 05-20-2021 COVID-19 Vaccine (2 - Pfizer series) COVID-19 Vaccine (2 - Pfizer series) [facility] Start: 12-15-2020 COVID-19 VACCINE (3 - Booster for Pfizer series) COVID-19 VACCINE (3 - Booster for Pfizer series) [facility] Start: 12-08-2020 Influenza vaccination INFLUENZA (#1) [facility] Start: 09-09-2020 COVID-19 VACCINE (3 - Booster for Pfizer series) COVID-19 VACCINE (3 - Booster for Pfizer series) [facility] Start: 03-05-2020 End: 03-05-2020 Treatment [facility] Start: 03-02-2020 End: 03-02-2020 Treatment 03/02/2020 Treatment Rehabilitation Emre Ramirez DO [address] [place], [place] [id number] Katharine Lopes PTA [facility] Start: 02-26-2020 End: 02-26-2020 Treatment 02/26/2020 Treatment Rehabilitation Emre Ramirez DO [address], [place] [id number] Sherron Faye [facility] Start: 02-24-2020 End: 02-24-2020 Treatment 02/24/2020 Treatment Rehabilitation Jerry, Emre Tom, DO [address] [place] [address] [phone] Katharine Lopes, [facility] Start: 02-19-2020 End: 02-19-2020 Treatment 02/19/2020 Treatment Rehabilitation Jerry Emre Tom, DO [address] [place] [address] [phone] Dania Abdul [facility] Start: 02-17-2020 End: 02-17-2020 Treatment 02/17/2020 Treatment Rehabilitation Emre Ramirez, DO [address] [place] [address] [phone] Dania Abdul [facility] Start: 02-13-2020 End: 02-13-2020 Treatment 02/13/2020 Treatment Rehabilitation Emre Ramirez, DO [address] [place] [address] [phone] Dania Abdul [facility] Start: 02-05-2020 End: 02-05-2020 Treatment 02/05/2020 Treatment Rehabilitation Emre Ramirez, DO [address] [place] [address] [phone] Linda No, [facility] Start: 12-09-2019 Influenza vaccinatio n given Sequential Influenza Vaccine (#1) [facility] Start: 2019 RSV High Risk: (Elde rly (60+) or Population) (1 - Risk 60-74 years 1-dose series) RSV High Risk: (Elderly (60+) or Population) (1 - Risk 60-74 years 1-dose series) [facility] Start: 01-25-2019 DIABETES SCREEN DIABETES SCREEN [facility] Start: 12-22-2018 Tetanus vaccination Tetanus: Every 1 0yrs [facility] Start: 11-07-2018 Screening for malign ant neoplasm of breast Mammogram [facility] Start: 05-21-2017 LIPID SCREEN LIPID SCREEN [facility] Start: 10-29-2015 Adult depression screening assessment DEPRESSION SCREENING [facility] Start: 2009 Administration of he rpes zoster vaccine Zoster Vaccines (1 of 2) [facility] Start: 2009 Screening for malign ant neoplasm of colon [facility] Start: 2009 SHINGRIX VACCINE (1 of 2) SHINGRIX VACCINE (1 of 2) [facility] Start: 12-23-2008 DTaP/Tdap/Td Vaccine s (1 - Tdap) DTaP/Tdap/Td Vaccines (1 - Tdap) [facility] Start: 12-23-2008 Urine microalbumin profile DTAP,TDAP,TD (1 - Tdap) [facility] Start: 2004 COLOGUARD (FIT-DNA) COLOGUARD (FIT-D NA) [facility] Start: 2004 Colonoscopy COLONOSCOPY [facility] Start: 2004 COLORECTAL CANCER SCREENING COLORECTAL CANCER SCREENING [facility] Start: [address] COLONOGRAPHY [facility] Start: 2004 FECAL OCCULT BLOOD FECAL OCCULT BLOO D [facility] Start: 2004 SIGMOIDOSCOPY SIGMOIDOSCOPY [facility] Start: 01-27-2003 PNEUMOCOCCAL (2 - PCV) PNEUMOCOCCAL (2 - PCV) [facility] Start: 01-27-2003 Pneumococcal vaccination Pneum ococcal Vaccine (2 of 2 - PCV) [facility] Start: 1980 Screening for malign ant neoplasm of cervix HPV/Cotest [facility] Start: 1977 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 LILLIE DISEASE VISIT ANNUAL PCP TEAM CHRONIC DISEASE VISIT [facility] Start: 1977 Diabetes mellitus screening Diabetes Screening [facility] Start: 1977 Hepatitis C antibody , confirmatory test Hepatitis C Screening [facility] Start: 1977 Hepatitis C screening Hepatitis C [facility] Start: 1977 HEPATITIS C SCREENING HEPATITIS C [facility] Start: 1977 HIV SCREENING HIV SCREENING [facility] Start: 1977 SPIROMETRY SPIROMETRY [facility] Start: 1974 HIV screening HIV Screening [facility] Start: 1971 Adolescent depressio n screening assessment Depression Screening (PHQ9) [facility] Start: 1971 Depression screening using PHQ-9 (Patient Health Questionnaire 9) score Depression Screening (PHQ-2/9) [facility] Start: 1962 History and physical examination, annual for health maintenance Wellness Visit [facility] Start: 1960 MMR Vaccines (1 of 1 - Standard series) MMR Vaccines (1 of 1 - Standard series) [facility] Start: 1959 HIV screening HIV Screening [facility] Start: 1959 Screening for malign ant neoplasm of cervix Pap Smear [facility] Start: 1959 Screening for malign ant neoplasm of colon [facility] Start: 1959 Screening mamm[facility] Start: 1959 Tetanus vaccination Tetanus: Every 1 0yrs [facility] Start: 1959 Yearly Adult Physical Yearly Adult P [facility] carBAMazepine [Mass/volume] in Serum or Plasma [facility] carBAMazepine [Mass/volume] in Serum or Plasma [facility] carBAMazepine [Mass/volume] in Serum or Plasma [facility] Complete blood count [facility] Complete blood count [facility] Complete blood count [facility] Comprehensive metabo lic 2000 panel - Serum or Plasma [facility] End: 03-08-2023 DBT Breast - bilateral [facility] Service Area Work Phone: Comment on above: Once for 1 Occurrenc es starting 03/08/2023 until 03/08/2023 End: 05-28-2024 [facility] Breast - bilateral [facility] Service Area Comment on above: Once for 1 Occurrenc es starting 05/28/2024 until 05/28/2024 [facility] Immunizations Immunization Date Immunization Notes Care Provider Manish cuello 01-22-2018 influenza, injectabl e, quadrivalent, preservative free Katrin Santamaria MD Work Phone: [facility] Work Phone: 01-04-2017 influenza, injectabl e, quadrivalent, contains preservative Katrin Santamaria MD Work Phone: [facility] Work Phone: 01-04-2017 influenza, injectabl e, quadrivalent, preservative free Katrin Santamaria MD Work Phone: [facility] Work Phone: 02-17-2016 influenza, injectabl e, quadrivalent, contains preservative Katrin Santamaria MD Work Phone: [facility] Work Phone: 01-29-2015 influenza, seasonal, injectable, preservative free Katrin Santamaria MD Work Phone: [facility] Work Phone: 02-11-2013 influenza, seasonal, injectable Katrin Santamaria MD Work Phone: [facility] Work Phone: 02-06-2012 influenza, seasonal, injectable Katrin Santamaria MD Work Phone: [facility] Work Phone: 01-27-2011 influenza, seasonal, injectable Katrin Santamaria MD Work Phone: [facility] Work Phone: 01-17-2010 influenza, seasonal, injectable Katrin Santamaria MD Work Phone: [facility] Work Phone: 03-22-2009 influenza, seasonal, injectable Katrin Santamaria MD Work Phone: [facility] Work Phone: 12-22-2008 tetanus and diphther ia toxoids, adsorbed, preservative free, for adult use (5 Lf of tetanus toxoid and 2 Lf of diphtheria toxoid) Katrin Santamaria MD Work Phone: [facility] Work Phone: 02-08-2006 influenza, seasonal, injectable Katrin Santamaria MD Work Phone: [facility] Work Phone: 01-27-2002 pneumococcal polysaccharide vaccine, 23 valent Katrin Santamaria MD Work Phone: [facility] Work Phone: Payers Date Payer Category Payer Medicare [id number] 2024 Medicare [id number] 2023 Self-pay [id number] 2013 [employer] [facility] [id number] 2013 Unknown [id number] 2013 Unknown 2013 Unknown [id number] 1959 Unknown [id number] 2.16840.1.505282.3.57 9.2 1959 Unknown [id number] 2.16840.1.562684.3.57 9.2 1959 Unknown [id number] 2.16840.1.578559.3.57 9.2 1959 Unknown [id number] 2.16.840.1.421456.3.57 9.2 1959 Unknown [id number] 2.16.840.1.026152.3.57 9.290 1959 Unknown [id number] 2.16.840.1.919591.3.57 9.2 1959 Unknown [id number] 2.16.840.1.785212.3.57 9.2.903 1959 Unknown [id number] 2.16.840.1.071141.3.57 9.2.903 1959 Unknown [id number] 2.16.840.1.152150.3.57 9.2.903 1959 Unknown [id number] 2.16.840.1.234894.3.57 9.2.356 1959 Unknown [id number] 2.16.840.1.043341.3.57 9.2.356 1959 Unknown [id number] 2.16.840.1.542408.3.57 9.2.1069 1959 Unknown [id number] 2.16.840.1.003733.3.57 9.2.1069 1959 Unknown [id number] 2.16.840.1.190360.3.57 9.2.1245 1959 Unknown [id number] 2.16.840.1.971914.3.57 9.2.1245 1959 Unknown [id number] 2.16.840.1.005989.3.57 9.2.1243 Unknown [id number] 2.16.840.1.811213.3.57 9.2.462 Unknown [id number] 2.16.840.1.141331.3.57 9.2.462 Unknown [id number] 2.16.840.1.043174.3.57 9.2.462 Unknown [id number] 2.16.840.1.292792.3.57 9.2.462 Unknown [id number] 2.16.840.1.233977.3.57 9.2.462 Unknown [id number] 2.16.840.1.059673.3.57 9.2.462 Social History Date Type Detail Facility Assertion Unknown if ever smoked [facility] Work Phone: Start: 02-03-2020 End: 11-14-2022 Tobacco smoking status NHIS Unknown if ever smoked [facility] Start: 1960 [facility] Start: 06-10-2021 End: 05-28-2024 Exposure to SARS-CoV-2 (event) Not sure [facility] Start: 05-16-2021 End: 12-12-2023 Tobacco smoking status NHIS Ex-smoker [facility] Start: 04-26-2012 End: 05-16-2021 Tobacco use and exposure Smokeless tobacco [facility] Start: 05-16-2021 End: 06-20-2021 Alcohol intake Ex-drinker (finding) [facility] Start: 04-26-2012 Tobacco smoking stat us NHIS Never smoked tobacco [facility] Start: 02-13-2020 Alcohol intake Current drinke r of alcohol (finding) [facility] Start: 04-26-2012 History SDOH Alcohol Comment occ [facility] Start: 1960 Sex Assigned At Female [facility] Gender identity Not on file [facility] ospitals [facility] Work Phone: Medical Equipment Procedure Code Equipment Code Equipment Original Text Equipment Identifier Dates Liborio Bn Smpx P Tobra Fd - [id number] Start: 06-22-2011 Comment on above: Description: ANTIBIO TIC SIMPLEX CEMENT Liborio Bn Smpx P Speedset Fd Fst - [id number] Start: 04-18-2012 Comment on above: Description: ANTIBIO TIC SIMPLEX Comp Fem 3 Lt Kn Cr Liborio Trthln - [id number] Start: 04-18-2012 Comment on above: Description: CRUCIAT RETAINING FEMORAL Comp Fem 3 Rt Kn Cr Liborio Trthln - [id number] Start: 06-22-2011 Comment on above: Description: cruciat e retaining femoral Ins Tib 3 13mm K n X3 Cr Trthln - [id number] Start: 06-22-2011 Comment on above: Description: tibial bearing inert Comp Pat 9mm 29m m Asym Trthln - [id number] Start: 04-18-2012 Comment on above: Description: ASYMMET SHAQUILLE PATELLA Ins Tib 3 9mm Kn X3 Cs Trthln - [id number] Start: 04-18-2012 Comment on above: Description: TIBIAL BEARING INSERT Comp Pat 10mm 32mm Asym Trthln - [id number] Start: 06-22-2011 Comment on above: Description: Asymmet shaquille Patella Baseplt Tib Trthln 3 Prim - [id number] Start: 06-22-2011 Comment on above: Description: primary tibial baseplate Baseplt Tib Trthln 3 Prim - [id number] Start: 04-18-2012 Comment on above: Description: TIBIAL BASEPLATE K-Wire & Guide .035 X 5.5 - [id number] Start: 08-14-2013 Comment on above: Description: K-WIRE IMPLANTED 2, WASTED 4. Functional Status Date Assessment Result Facility NEGATED: Highlighted row Functional performance Functional status health issues are not documented Disease [facility] Work Phone: Mental Status Date Assessment Result Facility NEGATED: Highlighted row Cognitive function [Interpretation] Cognitive status health issues are not documented Disease [facility] Work Phone: Clinical Notes 02-01-2021 to 03-24-2023 Trent Domínguez MD - 03/24/2023 12:29 AM Bienvenido Domínguez MD - 03/24/2023 12:29 AM ESTTelephone Encounter - Arias Ruggiero RN - 04/18/2022 4:32 PM Adele Reyes [...] Domínguez MD 03/24/23114 documented in this encounter [facility] Work Phone: 03-24-2023 Physician Emergency department [...] Hypertension, unspecified type Trent Domínguez MD 03/24/23114 [facility] Work Phone: 04-18-2022 Miscellaneous Notes LVM that [facility] sent a fax for refill. Pt is due for an appt. Enc to call to sched appt and let us know if she does need a refill. Arias Ruggiero RN documented in this encounter [facility] 11-11-2021 Note 31 Date of Procedure: 11/11/2021 Pathologist: [facility], Cytology Date Reported: 11/18/2021 Date Received: 11/11/2021 Submitting Physician: GENA BUSH M.D. FINAL CYTOLOGICAL INTERPRETATION A. THINPREP PAP CERVICAL: Specimen Adequacy: SATISFACTORY FOR EVALUATION. Quality Indicator: Absence of endocervical/transformation zone component. General Categorization: NEGATIVE FOR INTRAEPITHELIAL LESION OR MALIGNANCY. HIGH RISK HPV TEST RESULT: NEGATIVE Reference Range: Negative Slide(s) initially screened by a Beef Splitter at [facility], [address] [place] [id number] Testing for high-risk (HR) type of human papilloma virus (HPV) is performed by the Ronaldo arhat HPV Test. The rahat HPV Test is [...] verified by the Molecular Diagnostic Laboratory at [facility]. The lab is certified under the Clinical Laboratory Amendments of 1988 (CLIA 88) as qualified to perform high complexity clinical laboratory testing. This specimen has been analyzed by the Shave ClubPrep Imaging System ([employer] an automated imaging and review system, which assists the laboratory in evaluating cells on ThinPrep Pap tests. Following automated imaging, selected gomez from every slide were reviewed by a photographic restorer and/or pathologist. Electronically Signed Out By [facility], Cytology//KMW By the signature on this report, the individual or group listed as making the Final Interpretation/Diagnosis certifies that they have reviewed this case. Diagnostic interpretation performed at [facility] [address] [place] [address] Educational Note: Cervical cytology is a screening [...] Source of Specimen A: THINPREP PAP CERVICAL [facility] Department of Pathology [id number] [place] [address] Comment on above: Performed By: #### C [facility] #### [place] [address] 07-18-2021 Miscellaneous Notes Notified patient to make appt for annual exam to get more refills. Merary Aviles MA documented in this encounter [facility] 07-06-2021 Miscellaneous Notes Requesting estradiol vaginal 42.5gm 0.01% last seen Dr Donis 03/26/2020 LM to make appt for AE. vm documented in this encounter [facility] 06-20-2021 History of Presen t illness Narrative Images from the original note were not included. Charly Reyes DPM Patient Name: Vani Escobar. . Date of : 1960, 61 y.o.. Gender: female. Subjective: Patient is a pleasant 60-year-old female who presents to clinic with her spouse for follow-up evaluation of bilateral foot pain, left worse than right. Patient has degenerative arthritis of bilateral foot, left worse than right. States that the steroid injection did help her pain on her left foot for approximately 3 weeks. She states that she has significantly improved with wearing her compression socks and news stiff good supportive shoes. Denies any trauma or injury.. No other pedal complaints at this time. Denies fevers, chills, nausea, vomiting, chest pain, shortness of breath, or any other constitutional symptoms. Physical Examination: BP (!) 162/94 (BP Location: Left arm) Pulse 69 Temp 97.7 F (36.5 C) (Oral) General Appearance: Alert, cooperative, no distress, appears stated age. Podiatric Exam Vascular: DP and PT pulses are palpable 2/4. Capillary refill time is brisk to distal digits. Skin temperature is warm to warm from proximal tibial tuberosity to distal digit. Neurological: Gross sensation is intact. Protective sensation is intact. Dermatologic: No open wounds or ulcerations. Interdigital spaces are clean dry and intact. Musculoskeletal: Improved pain on palpation across the midfoot joints, left worse than right. Improved pain is especially significant over the second and third tarsometatarsal joint, left foot. Ankle joint range of motion is intact. Pain with subtalar joint range of motion, left worse than right. Muscle strength is 5/5 to dorsiflexors, plantar flexors, inverters and everters. Compartments soft and compressible. No calf pain Assessment: 1. Primary osteoarthritis of left foot 2. Primary osteoarthritis of right foot 3. Bilateral foot pain Imaging: Left foot 3 views weightbearing radiographs were previously ordered and interpreted as follows: No fractures or dislocations noted. Joint space narrowing noted across the midfoot tarsometatarsals joint especially over the second and third tarsometatarsal joints. Large calcaneal enthesophyte noted. Sclerosis noted to the posterior facet of the subtalar joint. Right foot 3 views weightbearing radiographs were previously ordered and interpreted as follows: No fractures or dislocations noted. Joint space narrowing noted across the midfoot tarsometatarsals joints especially over the second and third tarsometatarsal joints. Large calcaneal enthesophyte noted. Sclerosis noted to the posterior facet of the subtalar joint. Plan: Patient was seen and evaluated. Discussed all clinical findings. Patient has degenerative arthritis of bilateral foot, left worse than right. Patient has improved with compression socks, good supportive stiff shoes, and a steroid injection. Patient is to continue wearing her compression socks and good supportive shoes daily. Patient is to avoid barefoot walking. No plans for steroid injection at this time. May be possible at the next clinic visit. Discussed with patient surgical intervention per her request regarding her postoperative period, restrictions, etc. All questions were answered to patient satisfaction. Patient understands to call with any questions or concerns. Patient is to follow-up in 8 weeks for evaluation and possible steroid injection. Charly Reyes DPM, MS Podiatric Physician & Surgeon documented in this encounter [facility] 05-16-2021 History of Presen t illness Narrative Images from the original note were not included. NEW Patient Visit Charly Reyes DPM Patient Name: Vani Escobar. . Date of : 1960, 60 y.o.. Gender: female. Subjective: Patient is a pleasant 60-year-old female who presents to clinic with her spouse complaining of bilateral foot pain, left worse than right. Patient states that her feet feel stiff and sore. She feels as if she is unable to think of her feet when walking so she has a tendency of falling. Of note, patient is emotional and teary stating that her pain was ignored for several years by prior practitioners. Denies any particular trauma or injury. Stat she walks barefoot at home but does wear tennis shoes outside. 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 No other pedal complaints at this time. Denies fevers, chills, nausea, vomiting, chest pain, shortness of breath, or any other constitutional symptoms. Physical Examination: BP 145/85 (BP Location: Left arm, Patient Position: Sitting, BP Cuff Size: Adult) Pulse 70 Temp 98.2 F (36.8 C) (Oral) General Appearance: Alert, cooperative, no distress, appears stated age. Podiatric Exam Vascular: DP and PT pulses are palpable 2/4. Capillary refill time is brisk to distal digits. Skin temperature is warm to warm from proximal tibial tuberosity to distal digit. Neurological: Gross sensation is intact. Protective sensation is intact. Dermatologic: No open wounds or ulcerations. Interdigital spaces are clean dry and intact. Musculoskeletal: Pain on palpation across the midfoot joints, left worse than right. Pain is especially significant over the second and third tarsometatarsal joint, left foot. Ankle joint range of motion is intact. Pain with subtalar joint range of motion, left worse than right. Muscle strength is 5/5 to dorsiflexors, plantar flexors, inverters and everters. Compartments soft and compressible. No calf pain Assessment: 1. Primary osteoarthritis of left foot 2. Primary osteoarthritis of right foot 3. Bilateral foot pain XR Foot Left 3+ Views (Standard) XR Foot Right 3+ Views (Standard) Imaging: Left foot 3 views weightbearing radiographs were ordered and interpreted as follows: No fractures or dislocations noted. Joint space narrowing noted across the midfoot tarsometatarsals joint especially over the second and third tarsometatarsal joints. Large calcaneal enthesophyte noted. Sclerosis noted to the posterior facet of the subtalar joint. Right foot 3 views weightbearing radiographs were ordered and interpreted as follows: No fractures or dislocations noted. Joint space narrowing noted across the midfoot tarsometatarsals joints especially over the second and third tarsometatarsal joints. Large calcaneal enthesophyte noted. Sclerosis noted to the posterior facet of the subtalar joint. Plan: Patient was seen and evaluated. Discussed all clinical findings. Patient has degenerative arthritis of the midfoot joints, radiographically worse on the right and left however symptomatically worse on the left than right. Additionally, patient has degenerative arthritis of the subtalar joint, left worse than right. Discussed with patient conservative options for painful degenerative arthritis consisting of offloading using stiff soled shoes, anti-inflammatories such as meloxicam, steroidal injection, and ankle stability brace for control of the subtalar joint. Given the extent of her pain today, recommended a steroid injection to the left midfoot joint to help alleviate pain and discomfort. Patient agreed to proceed with this. See procedure below. PROCEDURE: The injection site was prepped with alcohol . Following, a 2 cc of 1: 1 mix of Kenalog 40 mg and 0.5% Marcaine plain was injected into the dorsal left foot 2nd and 3rd tarsometatarsal joints. Patient tolerated the injection well. A Band-Aid was applied at the injection site. Additionally, I prescribed bilateral ankle stability braces to help control the subtalar joint, therefore alleviating pain and discomfort. These were fitted and dispensed to her in the office. All questions were answered to patient satisfaction. Patient understands to call with any questions or concerns. Patient is to follow-up in 4 weeks for evaluation. Charly Reyes DPM, MS Podiatric Physician & Surgeon documented in this encounter [facility] 02-01-2021 Note HNO ID: [id number] Author: RYLEY Stock) Service: ? Author Type: Technologist Type: Progress Notes Filed: 02/01/2021 4:00 PM Note Text: Radiology Service Progress Note PATIENT NAME: VANI Escobar DATE OF SERVICE: February 01, 2021 TIME: 4:00 PM PATIENT IDENTITY VERIFICATION COMPLETED USING TWO (2) IDENTIFIERS: Name and Date of confirmed by patient verbally. FALL SCREENING: Has the patient had 2 falls in the last year or 1 fall with injury or currently using an Ambulatory Assistive Device (Walker, Cane, Wheelchair, Crutches, etc.)? No PATIENT GENDER DATA: Female. status: : No status: N/A PATIENT RELEVANT IMPLANT DATA REVIEWED: Not Applicable RADIOLOGY DEPARTMENT: Mammography PERIPHERAL IV DATA: Not applicable SIGNED BY: RT Dayami(Alfonso) February 01, 2021 4:[address] [facility] Evaluation note Diagnosis Primary osteoarthritis of left foot- Primary Primary osteoarthritis of right foot Bilateral foot pain [facility] note* Diagnosis Primary osteoarthritis of left foot- Primary Primary osteoarthritis of right foot Bilateral foot pain [facility] Onset Date Resolution Status Epilepsy chronic [facility] Work Phone: Evaluation note* Diagnosis Encounter for screening mammogram for malignant neoplasm of breast documented in this encounter [facility] Work Phone: Evaluation note* Diagnosis Encounter for screening mammogram for malignant neoplasm of breast documented in this encounter [facility] Work Phone: Evaluation note* Diagnosis Shortness of breath- Primary Hypertension, unspecified type documented in this encounter [facility] Work Phone: Evaluation note* Diagnosis Encounter for screening mammogram for malignant neoplasm of breast documented in this encounter [facility] Work Phone: Evaluation note* Diagnosis Onset Date Resolution Status Admit Date Epilepsy chronic November 10 11:19am [facility] Work Phone: Reason for referral (narrative)No reason for referral information [facility]: Rexdcu for visit Narrative* Imaging (Routine) - Authorized Specialty Diagnoses / Procedures Referred By Arelis benson Referred To Contact Radiology Diagnoses Encounter for screening mammogram for malignant neoplasm of breast Procedures BI mammo bilateral screening tomosynthesis Mammogram, Self Referral, [address] [place] [address] Referral ID Status Reason Start Date Expiration Date Visits Requested Visits Authorized [id number] Authorized Perform Procedure 4 02/27/2025 1 1 [facility] Work Phone: Summary Purpose Family History Unknown Family Member Name Dates Details No pertinent family history: Mother, Father(V49.89, Z78.9) Status:Active Advance Directives Documents on File Type Date Recorded 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 Advance Directives and Livin g Will 02/03/2020 10:41 AM Documents on File Type Date Recorded 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 CPT Code 74078 Low 63097 Moderate 81205 High History 0 1-2 3+ Comorbidities: asthma, [...] result in the following functiona l limitations: commercial illustrator, functional mobility, recreational activities, quality of life [...] core strength/stability as well as pain control. Sherron Faye PT State License, [id number] documented in this encounter* Linda No, TELESALES REPRESENTATIVE - 02/05/2020 1:45 PM EDT [facility] DAILY TREATMENT NOTE Today's [...] Treatments: Physical Therapy Exercise Log - 02/05/20 9686 OTHER Notes Visit 1: 10:55 - 11:35 Therapeutic Exercise (63667) Intervention provided written HEP handouts consisting of [...] core stretching, stretching and re-educationof HEP /technique Linda No PTA STATE LICENSE, [id number] documented in this encounter* Dania Abdul PTA - 02/17/2020 11:30 AM EST [facility] DAILY TREATMENT NOTE Today's [...] 1127 OTHER Precautions/Contraindications *Mounika Notes Visit 3: 7178-3068 Therapeutic Exercise (43738) Intervention Scifit L1 x8min Parameters SKTC w/ [...] as tolerated Dania Abdul PTA STATE LICENSE, [id number] documented in this encounter* Sherron Faye, PT - 02/26/2020 11:30 AM EST [facility] DAILY TREATMENT NOTE Today's [...] Visit 5: 11:34 - 12:12 Therapeutic Exercise (10880) Intervention Scifit L2 x 6min Parameters SKTC [...] Visit with focus on strength and stability Sherron Faye PT State License, [id number] documented in this encounter* Dania Abdul, TELESALES REPRESENTATIVE - 02/24/2020 11:30 AM EST [facility] DAILY TREATMENT NOTE Today's [...] 1137 OTHER Precautions/Contraindications *Mounika Notes Visit 4: 1215-2503 Therapeutic Exercise (37812) Intervention Scifit L1 x8min Parameters SKTC w/ [...] as tolerated Dania Abdul PTA STATE LICENSE, [id number] documented in this encounter Assessments Diagnosis Radiculopathy, lumbar region Thoracic or lumbosacral neuritis or radiculitis, unspecified Sciatica of right side Diagnosis Radiculopathy, lumbar region- Primary Thoracic or lumbosacral neuritis or radiculitis, unspecified Chief Complaint and Reason for Visit Chief Complaint 6 M FU PENITENTIARY DRUG USE Reason for Visit Epilepsy Chief Complaint 6 M FU LUMBAGO WITH SCIATICA Reason for Visit Epilepsy Chief Complaint Admit Date FOLLOW UP November 10, 2024 11: 19am Reason for Visit Admit Date Epilepsy November 10, 2024 11: 19am Reason for Referral Specialty Diagnoses / Procedures Referred By Arelis benson Referred To Contact Radiology Diagnoses Encounter for screening mammogram for malignant neoplasm of breast Procedures BI mammo bilateral screening tomosynthesis Sahil Bella APRN-SON [place] [address] Referral ID Status Reason Start Date Expiration Date Visits Requested Visits Authorized [id number] Authorized Perform Procedure 01/12/2023 07/11/2023 1 1 Additional Source Comments INFORMATION SOURCE (unrecogn ized section and content) DATE CREATED AUTHOR 02/05/2018 [facility] DATE CREATED AUTHOR AUTHOR'S ORGANIZ ATION 11/23/2018 [facility] DATE CREATED AUTHOR AUTHOR'S ORGANIZ ATION 11/28/2018 [facility] DATE CREATED AUTHOR AUTHOR'S ORGANIZ ATION 03/01/2020 [facility] DATE CREATED AUTHOR AUTHOR'S ORGANIZ ATION 05/31/[address] [facility] DATE CREATED AUTHOR AUTHOR'S ORGANIZ ATION 06/21/2021 [facility] DATE CREATED AUTHOR AUTHOR'S ORGANIZ ATION 11/12/2021 [facility] DATE CREATED AUTHOR AUTHOR'S ORGANIZ ATION 03/13/2022 [facility] DATE CREATED AUTHOR AUTHOR'S ORGANIZ ATION 03/15/2022 [facility] DATE CREATED AUTHOR AUTHOR'S ORGANIZ ATION 04/19/2022 [facility] DATE CREATED AUTHOR AUTHOR'S ORGANIZ ATION 01/03/2024 [facility] DATE CREATED AUTHOR AUTHOR'S ORGANIZ ATION 06/02/2024 [facility] DATE CREATED AUTHOR AUTHOR'S ORGANIZ ATION 10/30/2024 [facility] Reason for Visit (unrecogniz ed section and content) Reason Comments Physical Therapy Status Reason Specialty Diagnoses / Procedures Referred By Contact Referred To Contact Authorized Rehabilitation Diagnoses Radiculopathy, lumbar region Emre Ramirez, [address] [place] [address] [address] [place] [address] Reason Comments Foot Pain Bilateral foot pain x years. Feet are stiff and sore. Pain radiates down her feet and up her ankles. She doesn't pick up attendant feet when walking so she falls a [...] Request Specialty Diagnoses / Procedures Referred By Contac t Referred To Contact Radiology Diagnoses Encounter for screening mammogram for malignant neoplasm of breast Procedures BI mammo bilateral screening tomosynthesis Sahil Bella, GEM CUTTER-PAYROLL ACCOUNTING SPECIALIST [place] [id number] [facility] [address] Referral ID Status Reason Start Date Expiration Date Visits Requested Visits Authorized [id number] Authorized Perform Procedure 01/12/2023 07/11/2023 1 1 Reason Comments Shortness of Breath Care Teams (unrecognized sec tion and content) Wood Planer Relationship Specialty Start Date End Date Don Hernandez MD [address] [place], [place] [address] PCP - General Family Medicine 01/27/20 Wood Planer Relationship Specialty Start Date End Date Don Hernandez MD [address] [place], [place] [phone] PCP - General Family Medicine 01/27/20 Wood Planer Relationship Specialty Start Date End Date Don Hernandez MD PCP - General Family Practice 10/03/16 Wood Planer Relationship Specialty Start Date End Date Don Hernandez MD PCP - General Family Medicine 10/03/16 Team Status: Active Member Role Status Dates Dr. Don Hernandez MD Primary Care Provider Active Team Status: Inactive Member Role Status Dates Dr. Don Hernandez MD Primary Care Provider, Referring Provider Active Dr. Deon Mendoza MD Attending Provider Active Team Status: Inactive Member Role Status Dates Dr. Don Hernandez MD Primary Care Provider Active Dr. Deon Mendoza MD Attending Provider Active Team Status: Active Member Role Status Dates LUIS MIGUEL Botello Primary Care Provider Active Team Status: Inactive Member Role Status Dates LUIS MIGUEL Botello Primary Care Provide r, Attending Provider, Referring Provider Active Wood Planer Relationship Specialty Start Date End Date Sahil Bella APRN-SON [address] [phone] PCP - General Family Medicine 03/08/23 Wood Planer Relationship Specialty Start Date End Date Sahil Bella APRN-CNP [place] [phone] PCP - General Family Medicine 03/08/23 Wood Planer Relationship Specialty Start Date End Date Sahil Bella APRN-CNP [place] [phone] PCP - General Family Medicine 03/08/23 Wood Planer Relationship Specialty Start Date End Date Sahli Bella APRN-CNP [place] [phone] PCP - General Family Medicine 03/08/23 Team Status: Active Member Role/Relationship Status Dates LUIS MIGUEL Botello Primary Care Provider Active Team Status: Inactive Member Role/Relationship Status Dates Sahil Bella NP-C Primary Care Provider Active Start: November 10, 2024 End: November 10, 2024 LUIS MIGUEL Botello Referring Provider Active St art: November 10, 2024 End: November 10, 2024 Dr. Deon Mendoza MD Attending Provider Active Start: November 10, 2024 End: November 10, 2024 Source Comments (unrecognize d section and content) In the event this informatio n is protected by the Federal Confidentiality of Alcohol and Drug Abuse Patient Records regulations: The Federal rules restrict any use of the information to criminally investigate or prosecute any alcohol or drug abuse patient.[facility] HospitalIn the event this information is protected by the Federal Confidentiality of Alcohol and Drug Abuse Patient Records regulations: The Federal rules restrict any use of the information to criminally investigate or prosecute any alcohol or drug abuse patient.[facility] Hospital[facility] the event this information is protected by the Federal Confidentiality of Alcohol and Drug Abuse Patient Records regulations: The Federal rules restrict any use of the information to criminally investigate or prosecute any alcohol or drug abuse patient.[facility] Goals (unrecognized section and content) Goals may be documented in a n alternate sectionGoals may be documented in an alternate sectionGoals may be documented in an alternate section FOR RECORDS PERTAINING TO PATIENTS WHO ARE [...] BE BASED ON THE PRIMARY CLINICAL RECORDS. [facility]. provides no warranty or guarantee of the accuracy or completeness of information in this document.
== END | disposition home or self-care (01) ==
LOC: MTLAB 12:36
PROVIDERS: PCP Nurse Practitioner Family; Referring Provider Psychiatry & Neurology Neurology; Visit Provider Psychiatry & Neurology Neurology
DX: G40.909 Epilepsy, unspecified, not intractable, without status epilepticus (principal)
CPT/HCPCS: 36415; 80053; 80156; 85027

== ENCOUNTER → 2024-12-15 | Outpatient (CLI) | payer MEDICARE, BC, SELFPAY ==
--- NOTE | 2024-12-15 16:11 | RAD_ITS ---
PROCEDURE: L/S SPINE MIN 4 VIEWS 12/15/2024 REASON FOR EXAM: LUMBAGO WITH SCIATICA TECHNIQUE: Procedure Code: RADSPLS Modality: DX Procedure: L/S SPINE MIN 4 VIEWS FINDINGS: No acute fracture. A grade 1 anterolisthesis of L3 on L4 is noted. Mild disc space narrowing is noted throughout the lumbar spine. At L5-S1, there may be a congenital rudimentary disc. Small anteriorly projecting osteophytes extend off of L2, L3, and L4. Facet arthrosis is seen throughout the mid to lower lumbar spine. RAD/L/S Spine Min 4 Views IMPRESSION: As above. Reading Location: [id number]
== END | disposition home or self-care (01) ==
LOC: MTRAD 16:08
PROVIDERS: PCP Nurse Practitioner Family; Referring Provider Nurse Practitioner Family; Visit Provider Nurse Practitioner Family
DX: M54.40 Lumbago with sciatica, unspecified side (principal)
CPT/HCPCS: 72110

== ENCOUNTER → 2024-12-15 | Outpatient (CLI) | payer MEDICARE, BC, SELFPAY ==
[2024-12-15 19:16] LABS: Cholesterol 234 mg/dL (<=200); Low Density Lipoprotein Calc. 120 mg/dL; Triglycerides 139 mg/dL; Very Low Density Lipoprotein 28 mg/dL (5-40); Vitamin D,25 Hydroxy 42.2 ng/mL (30-100); cholesterol:hdl ratio screen 2.70
--- OUTSIDE RECORDS SUMMARY | 2024-12-15 22:11 | XMS RPT_ITS | CCD ---
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 lumbar slip discs. Anion gap in Serum or Plasma Ordered By: Deon Mendoza on 11-10-2024 Anion gap [Moles/Vol] 13 mmol/L - [facility] BUN/creatinine ratioOrdered By: Deon Mendoza on 11-10-2024 Urea nitrogen/Creatinine [Mass ratio] 23.6 mg/mg High 10- [facility] Bilirubin, totalOrdered By: Deon Mendoza on 11-10-2024 Bilirubin [Mass/Vol] 0.26 mg/dL 0.00-1.30 [facility] CBC-Complete Blood Cnt No Di ffon 11-10-2024 Erythrocyte distribution width (RBC) [Ratio] 13.2 % Normal 11.6-14.6 [facility] Comment on above: Performed By: #### L 501.7900, L500.4050, L100.0500 #### [facility] [address] [place], [address] Hematocrit (Bld) [Volume fraction] 39.6 % Normal 37-47 [facility] Comment on above: Performed By: #### L 501.7900, L500.4050, L100.0500 #### [facility] [address] [place], [address] Hemoglobin (Bld) [Mass/Vol] 13.3 g/dL Normal 12.0-15.0 [facility] Comment on above: Performed By: #### L 501.7900, L500.4050, L100.0500 #### [facility] [address] [place], [address] MCH (RBC) [Entitic mass] 31.4 pg Normal 27.0-32.0 [facility] Comment on above: Performed By: #### L 501.7900, L500.4050, L100.0500 #### [facility] [address] [place], [address] MCHC (RBC) [Mass/Vol] 33.6 g/dL Normal 32-36 [facility] Comment on above: Performed By: #### L 501.7900, L500.4050, L100.0500 #### [facility] [address] [place], [address] MCV (RBC) [Entitic vol] 93.6 fL Normal 81-99 [facility] Comment on above: Performed By: #### L 501.7900, L500.4050, L100.0500 #### [facility] [address] [place], [address] Platelet mean volume (Bld) [Entitic vol] 11.1 fL Normal 6.2-12.0 [facility] Comment on above: Performed By: #### L 501.7900, L500.4050, L100.0500 #### [facility] [address] [place], [address] Platelets (Bld) [#/Vol] 248 10*3/uL Normal 150-450 [facility] Comment on above: Performed By: #### L 501.7900, L500.4050, L100.0500 #### [facility] [address] [place], [address] RBC (Bld) [#/Vol] 4.23 10*6/uL Normal 4.2-5.4 [facility] Comment on above: Performed By: #### L 501.7900, L500.4050, L100.0500 #### [facility] [address] [place], [address] RDW SD 45.3 fl High 35.1-43.9 [facility] Comment on above: Performed By: #### L 501.7900, L500.4050, L100.0500 #### [facility] [address] [place], [address] WBC (Bld) [#/Vol] 7.0 10*3/uL Normal 4.4-11.0 [facility] Comment on above: Performed By: #### L 501.7900, L500.4050, L100.0500 #### [facility] [address] [place], [address] Carbamazepine (Tegretol)on 0 11-10-2024 CARBAMAZEPINE 8.4 ug/mL Normal 4.0-12.0 [facility] Comment on above: Performed By: #### L 501.7900, L500.4050, L100.0500 #### [facility] [address] [place], [address] Carbon dioxide, total [Moles /volume] in Central venous bloodOrdered By: Deon Mendoza on 11-10-2024 CO2 [Moles/Vol] 25.3 mmol/L 21.0-32.0 [facility] Chloride assayOrdered By: Ra norma Mendoza on 11-10-2024 Chloride [Moles/Vol] 99 mmol/L 98-108 [facility] Comprehensive Metabolic Prof ilon 11-10-2024 Albumin [Mass/Vol] 4.5 g/dL Normal 3.4-4.8 [facility] Comment on above: Performed By: #### L 501.7900, L500.4050, L100.0500 #### [facility] [address] [place], [address] Albumin/Globulin [Mass ratio] 1.5 {ratio} Normal 0.9-2.4 [facility] Comment on above: Performed By: #### L 501.7900, L500.4050, L100.0500 #### [facility] [address] [place], [address] ALK PHOS 81 U/L Normal 35-104 [facility] Comment on above: Performed By: #### L 501.7900, L500.4050, L100.0500 #### [facility] [address] [place], [address] ALT [Catalytic activity/Vol] 17 U/L Normal <=34 [facility] Comment on above: Performed By: #### L 501.7900, L500.4050, L100.0500 #### [facility] [address] [place], [address] AST [Catalytic activity/Vol] 20 U/L Normal <=31 [facility] Comment on above: Performed By: #### L 501.7900, L500.4050, L100.0500 #### [facility] [address] [place], [address] Bilirubin [Mass/Vol] 0.26 mg/dL Normal 0.00-1.30 [facility] Comment on above: Performed By: #### L 501.7900, L500.4050, L100.0500 #### [facility] [address] [place], [address] BUN/CRE 23.6 RATIO High 10-20 [facility] Comment on above: Performed By: #### L 501.7900, L500.4050, L100.0500 #### [facility] [address] [place], [address] Calcium [Mass/Vol] 9.9 mg/dL Normal 7.6-11.0 [facility] Comment on above: Performed By: #### L 501.7900, L500.4050, L100.0500 #### [facility] [address] [place], [address] Chloride [Moles/Vol] 99 mmol/L Normal 98-108 [facility] Comment on above: Performed By: #### L 501.7900, L500.4050, L100.0500 #### [facility] [address] [place], [address] CO2 [Moles/Vol] 25.3 mmol/L Normal 21.0-32.0 [facility] Comment on above: Performed By: #### L 501.7900, L500.4050, L100.0500 #### [facility] [address] [place], [address] Creatinine [Mass/Vol] 0.81 mg/dL Normal 0.70-1.20 [facility] Comment on above: Performed By: #### L 501.7900, L500.4050, L100.0500 #### [facility] [address] [place], [address] GAP 13 Normal 5-15 [facility] Comment on above: Performed By: #### L 501.7900, L500.4050, L100.0500 #### [facility] [address] [place], [address] GFR/1.73 sq M.predicted among non-blacks MDRD (S/P/Bld) [Vol rate/Area] 80 mL/min/{1.73_m2} Normal >60 [facility] Comment on above: Result Comment: mL/m in/1.73m2 CKD-EPI Creatinine Equation (2020) Performed By: #### L 501.7900, L500.4050, L100.0500 #### [facility] [address] [place], [address] Globulin (S) [Mass/Vol] 3.0 g/dL Normal 2.2-4.2 [facility] Comment on above: Performed By: #### L 501.7900, L500.4050, L100.0500 #### [facility] [address] [place], [address] Glucose [Mass/Vol] 107 mg/dL High 70-99 [facility] Comment on above: Performed By: #### L 501.7900, L500.4050, L100.0500 #### [facility] [address] [place], [address] Potassium [Moles/Vol] 4.8 mmol/L Normal 3.3-5.1 [facility] Comment on above: Performed By: #### L 501.7900, L500.4050, L100.0500 #### [facility] [address] [place], [address] Sodium [Moles/Vol] 137 mmol/L Normal 133-145 [facility] Comment on above: Performed By: #### L 501.7900, L500.4050, L100.0500 #### [facility] [address] [place], [address] T PROT 7.4 g/dL Normal 5.9-8.4 [facility] Comment on above: Performed By: #### L 501.7900, L500.4050, L100.0500 #### [facility] [address] [place], [address] Urea nitrogen [Mass/Vol] 19 mg/dL Normal 4-19 [facility] Comment on above: Performed By: #### L 501.7900, L500.4050, L100.0500 #### [facility] [address] [place], [address] Erythrocyte distribution wid th ratioOrdered By: Deon Mendoza on 11-10-2024 Erythrocyte distribution width (RBC) [Ratio] 13.2 % 11.6-14.6 [facility] Erythrocyte distribution wid th standard deviationOrdered By: Deon Mendoza on 11-10-2024 Erythrocyte distribution width (RBC) [Ratio] 45.3 fl High 35.1-43.9 [facility] Glomerular filtration rate ( GFR) estimation/1.73 sq m using serum, plasma, or whole bOrdered By: Deon Mendoza on 11-10-2024 GFR/1.73 sq M.predicted among non-blacks MDRD (S/P/Bld) [Vol rate/Area] 80 mL/min/{1.73_m2} >60 [facility] Comment on above: mL/min/1.73m2 CKD-EP I Creatinine Equation (2020) Hematocrit Auto (Bld) [Volum e fraction]Ordered By: Deon Mendoza on 11-10-2024 Hematocrit (Bld) [Volume fraction] 39.6 % 37-47 [facility] Hemoglobin measurementOrdere d By: Deon Mendoza on 11-10-2024 Hemoglobin (Bld) [Mass/Vol] 13.3 g/dL 12.0-15.0 [facility] - Chemistry and C hemistry - challengeOrdered By: Deon Mendoza on 11-10-2024 AST [Catalytic activity/Vol] 20 U/L <32 [facility] MCV (mean corpuscular volume ) determinationOrdered By: Deon Mendoza on 11-10-2024 MCV (RBC) [Entitic vol] 93.6 fL 81-99 [facility] Mean corpuscular hemoglobin (MCH) determinationOrdered By: [facility]on [facility]-10-[facility]24 MCH (RBC) [Entitic mass] 31.4 pg 27.0-32.0 [facility] Mean corpuscular hemoglobin concentration (MCHC) determinationOrdered By: Deondeidre Mendoza on 11-10-2024 MCHC (RBC) [Mass/Vol] 33.6 g/dL 32-36 [facility] Mean platelet volume determi nationOrdered By: Deon Mendoza on 11-10-2024 Platelet mean volume (Bld) [Entitic vol] 11.1 fL 6.2-12.0 [facility] Neurology Visit Reporton Neurology Visit Report [facility] [address], [address] [place], [place] [address] OFFICE VISIT Date of Service: 11/10/24 MR#: [id number] Acct: [id number] Name: ESCOBARVANI Rep #: [id number] : 1960 Provider: Dr. Deon madden MD Age/Sex: 64/F Location: [facility]. Status: Signed HPI HPI Chief Complaint: Details: Interim History: Vain presents for follow-up visit. She has a history of hypercholesterolemia, dyslexia, and epilepsy. She began having seizures when [...] not have any history of concussion or [employer]ATION [employer] infection. She was adopted; she does not know her history or family history. She reported that an EEG in years past was abnormal (an official report is presently not available). She stated that a head MRI performed in years past was normal (an official report is presently not available). She had previously seen a neurologist at the [facility]. An attempt to take a generic form of Tegretol-XR in the past was not well-tolerated due to a side effect of dizziness and occurrence of seizure auras and she subsequently resumed brand-name Tegretol XR. A reattempt to switch to generic carbamazepine ER earlier in 2024 resulted in side effects of headache, dizziness, and nausea. She has since resumed Tegretol XR (brand name) and has tolerated this well. She had previously seen a patent solicitor for bilateral foot pain (the patient is unsure of a specific diagnosis that was given). She is not experiencing neuropathic (sharp or burning) pain in the feet. She had a fall and fractured her left elbow in the . She reported having degenerative joint changes in the knees. Her pain in the feet (which is prominent in the heels) has been worse at night. Flurbiprofen caused dyspepsia and was discontinued. Duloxetine caused nausea and sedation. She is using an oimd-xnj-xbtitvo topical cream and this has been of benefit for the pain in her feet. She has had pain in the ankles. She has had intermittent low back pain that occurs with extended standing. Her lumbar MRI reveals mild multilevel degenerative disc disease. She has some right lower extremity radicular pain radiating to the posterior thigh. EMG/nerve conduction studies of the lower extremities [...] serum glucose. She has had fatigue. B12 1500 mcg injections injections have been of moderate benefit for her fatigue. She had physical therapy for low back pain and this was of benefit. A methylprednisolone Dosepak was of benefit for her low back pain. Meloxicam was not of significant benefit. X-rays of the feet reveal osteopenia and degenerative joint changes including bilateral heel spurs. She takes calcium and vitamin D supplements. Long-term use of carbamazepine has been associated with decreased bone mineral density that may lead to osteopenia or osteoporosis. She has a history of left elbow fracture that occurred with a fall in the . Her bone density test in 2022 was normal. Physical Exam: Neuro: The patient is awake and alert and responds appropriately; speech is fluent Heart: Regular rate and rhythm Supplemental Info Carbamazepine level (08/16/2021): 7 (in therapeutic range).??? CBC TSH, thiamine, serum free light chains, B12, folate, CMP (03/07/2022):???Glucos e 101. Carbamazepine level (03/07/2022):???9.3 (in therapeutic range) Bone density test (06/06/2022): IMPRESSION: The patient is considered normal as outlined below according to World Clement Organization (WHO) criteria wit (more content not included)... Normal [facility] Platelet countOrdered By: Ra norma Mendoza on 11-10-2024 Platelets (Bld) [#/Vol] 248 10*3/uL 150-450 [facility] Potassium measurement (mass/ volume)Ordered By: Deon Mendoza on 11-10-2024 Potassium (Unsp spec) [Mass/Vol] 4.8 mmol/L 3.3-5.1 [facility] RBC Auto (Bld) [#/Vol]Ordere d By: Deon Mendoza on 11-10-2024 RBC (Bld) [#/Vol] 4.23 10*6/uL 4.2-5.4 [facility] Serum creatinine measurement (mass/volume)Ordered By: Deon Mendoza on 11-10-2024 Creatinine [Mass/Vol] 0.81 mg/dL 0.70-1.20 [facility] Serum globulin measurementOr dered By: Deon Mendoza on 11-10-2024 Globulin (S) [Mass/Vol] 3.0 g/dL 2.2-4.2 [facility] Serum glucose measurement (m ass/volume)Ordered By: Deon Mendoza on 11-10-2024 Glucose [Mass/Vol] 107 mg/dL High 70-99 [facility] Serum or plasma alanine joaquin otransferase (ALT) measurementOrdered By: Deon Mendoza on 11-10-2024 ALT [Catalytic activity/Vol] 17 U/L <35 [facility] Serum or plasma albumin martin urement (mass/volume)Ordered By: Deon Mendoza on 11-10-2024 Albumin [Mass/Vol] 4.5 g/dL 3.4-4.8 [facility] Serum or plasma albumin/glob ulin mass ratioOrdered By: Deon Mendoza on 11-10-2024 Albumin/Globulin [Mass ratio] 1.5 {ratio} 0.9-2.4 [facility] Serum or plasma alkaline charles sphatase measurementOrdered By: Deon Mendoza on 11-10-2024 ALP [Catalytic activity/Vol] 81 U/L 35-104 [facility] Serum or plasma calcium martin urement (mass/volume)Ordered By: Deon Mendoza on 11-10-2024 Calcium [Mass/Vol] 9.9 mg/dL 7.6-11.0 [facility] Serum or plasma carbamazepin e level (mass/volume)Ordered By: Deon Mendoza on 11-10-2024 carBAMazepine [Mass/Vol] 8.4 ug/mL 4.0-12.0 [facility] Serum or plasma urea nitroge n measurement (mass/volume)Ordered By: Deon Mendoza on 11-10-2024 Urea nitrogen [Mass/Vol] 19 mg/dL 4-19 [facility] Sodium levelOrdered By: Pk Mendoza on 11-10-2024 Sodium [Moles/Vol] 137 mmol/L 133-145 [facility] Total proteinOrdered By: Harpreet Mendoza on 11-10-2024 Protein [Mass/Vol] 7.4 g/dL 5.9-8.4 [facility] White blood cell (WBC) count Ordered By: Deon Mendoza on 11-10-2024 WBC (Bld) [#/Vol] 7.0 10*3/uL 4.4-11.0 [facility] Neurology Visit Reporton Neurology Visit Report [facility] [address], [address] [place] [address] OFFICE VISIT Date of Service: 06/18/24 MR#: [id number] Acct: [id number] Name: VANI ESCOBAR Rep #: [id number] : 1960 Provider: Dr. Deon madden MD Age/Sex: 64/F Location: [facility] Status: Signed [facility] Chief Complaint: Details: Interim History: Vani [...] not have any history of concussion or [employer]ATION [employer] infection. She was adopted; she does not know her history or family history. She reported that an EEG in years past was abnormal (an official report is presently not available). She stated that a head MRI performed in years past was normal (an official report is presently not available). She had previously seen a neurologist at the [facility]. An attempt to take a generic form of Tegretol-XR in the past was not well-tolerated due to a side effect of dizziness and occurrence of seizure auras and she has since resumed namebrand Tegretol XR and is tolerating this well and has had no further side effects. She had previously seen a patent solicitor for bilateral foot pain (the patient is [...] and was discontinued. She is using an tjtm-uvs-fqyjhqv topical cream and this has been of [...] serum free light chains, B12, folate, CMP (03/07/2022):???Glucos e 101. Carbamazepine level (03/07/2022):???9.3 (in therapeutic range) Bone density test (06/06/2022): IMPRESSION: The patient is considered normal as outlined below according to World Clement Organization (WHO) criteria with a low fracture risk. CMP, CBC (01/12/2023): Glucose 106 (high) Carbamazepine level (01/12/2023): 7.5 (in therapeutic range) Bilateral lower extremity EMG/nerve conduction studies (04/11/2023): Electrodiagnostic findings: Right (more content not included)... Normal [facility] BI MAMMO BILATERAL SCREENING TOMOSYNTHESISon 05-28-2024 BI MAMMO BILATERAL SCREENING TOMOSYNTHESIS Interpreted By: Martin Mccoy, STUDY: BI MAMMO BILATERAL SCREENING TOMOSYNTHESIS; 05/28/2024 1:29 pm ACCESSION NUMBER(S): [id number] ORDERING CLINICIAN: SELF MAMMOGRAM INDICATION: Screening. COMPARISON: [...] Martin Mccoy 05/29/2024 9:15 AM Dictation workstation: [id number] [facility] Neurology Visit Reporton Neurology Visit Report [facility] [address], [address] [place] [address] OFFICE VISIT Date of Service: 05/26/24 MR#: [id number] Acct: [id number] Name: VANI ESCOBAR Rep #: [id number] : 1960 Provider: Dr. Deon madden MD Age/Sex: 63/F Location: [facility] Status: Signed with Addenda ADDENDUM by Dr. [...] be considered in 2025. 05/26/24 1556 Date Deon Mendoza MD cc: * Signed HPI [facility] Chief Complaint: Details: Interim History: Vani [...] not have any history of concussion or COMMER[employer] LIT[employer]ATION [employer]ORNEY infection. She was adopted; she does not know her history or family history. She reported that an EEG in years past was abnormal (an official report is presently not available). She stated that a head MRI performed in years past was normal (an official report is presently not available). She had previously seen a neurologist at the [facility]. An attempt to take a generic form of Tegretol-XR in the past was not well-tolerated due to a feeling that a seizure was about to occur and generalized feeling of sickness. She had previously seen a patent solicitor for bilateral foot pain (the patient is [...] mild multilevel (more content not included)... Normal [facility] Neurology Visit Reporton Neurology Visit Report [facility] [address] [facility], [address] [place], [place] [address] OFFICE VISIT Date of Service: 01/09/24 MR#: [id number] Acct: [id number] Name: VANI ESCOBAR Rep #: [id number] : 1960 Provider: Dr. Deon madden MD Age/Sex: 63/F Location: [facility] Status: Signed HPI [facility] Chief Complaint: Details: Note: Vani presents for follow-up visit. She has a history of hypercholesterolemia, dyslexia and epilepsy. She had previously seen a patent solicitor for bilateral foot pain (the patient is [...] serum free light chains, B12, folate, CMP (03/07/2022):???Glucos e 101. Carbamazepine level (03/07/2022):???9.3 (in therapeutic range) [...] arthropathy superimposed (more content not included)... Normal [facility] CBC W Auto Differential pane l (Bld)on 12-28-2023 Basophils (Bld) [#/Vol] 0.03 x10*3/uL Normal 0.00-0.10 [facility] Comment on above: Performed By: #### 5 7021-8 #### LUIZA GARCIA (58053) [facility] ([facility]) [address] [place] [address] Basophils/100 WBC (Bld) 0.6 % Normal 0.0-2.0 [facility] Comment on above: Performed By: #### 7021-8 #### LUIZA GARCIA (81970) [facility] ([facility]) [address] [place] [address] 120[address] Eosinophils (Bld) [#/Vol] 0.16 x10*3/uL Normal 0.00-0.70 [facility] Comment on above: Performed By: #### 7021-8 #### LUIZA GARCIA (03672) [facility] ([facility]) [address] [place] [address] Eosinophils/100 WBC (Bld) 3.0 % Normal 0.0-6.0 [facility] Comment on above: Performed By: #### 7021-8 #### LUIZA GARCIA (03886) [facility] ([facility]) [address] [place] [address] Erythrocyte distribution width (RBC) [Ratio] 13.2 % Normal 11.5-14.5 [facility] Comment on above: Performed By: #### 7021-8 #### LUIZA GARCIA (85072) [facility] ([facility]) [address] [place] [address] Hematocrit (Bld) [Volume fraction] 40.4 % Normal 36.0-46.0 [facility] Comment on above: Performed By: #### 7021-8 #### LUIZA GARCIA (21891) [facility] ([facility]) [address] [place] [address] Hemoglobin (Bld) [Mass/Vol] 13.0 g/dL Normal 12.0-16.0 [facility] Comment on above: Performed By: #### 7021-8 #### LUIZA GARCIA (30555) [facility] ([facility]) [address] [place] [address]3969 Immature granulocytes (Bld) [#/Vol] 0.01 x10*3/uL Normal 0.00-0.70 [facility] Comment on above: Performed By: #### 5 7021-8 #### LUIZA GARCIA (92299) [facility] ([facility]) [address] [place] [address] Immature granulocytes/100 WBC (Bld) 0.2 % Normal 0.0-0.9 [facility] Comment on above: Result Comment: Kathy ture Granulocyte Count (IG) includes promyelocytes, myelocytes and metamyelocytes but does not include bands. Percent differential counts (%) should be interpreted in the context of the absolute cell counts (cells/UL). Performed By: #### 5 7021-8 #### LUIZA GARCIA (29858) [facility] ([facility]) [address] [place] [address] Lymphocytes (Bld) [#/Vol] 1.64 x10*3/uL Normal 1.20-4.80 [facility] Comment on above: Performed By: #### 5 7021-8 #### LUIZA GARCAI (26485) [facility] ([facility]) [address] [place] [address] 87997 Lymphocytes/100 WBC (Bld) 30.4 % Normal 13.0-44.0 [facility] Comment on above: Performed By: #### 5 7021-8 #### LUIZA GARCIA (52085) [facility] ([facility]) [address] [place] [address] MCH (RBC) [Entitic mass] 30.9 pg Normal 26.0-34.0 [facility] Comment on above: Performed By: #### 5 7021-8 #### LUIZA GARCIA (06499) [facility] ([facility]) [address] [place] [address]3866 MCHC (RBC) [Mass/Vol] 32.2 g/dL Normal 32.0-36.0 [facility] Comment on above: Performed By: #### 5 7021-8 #### LUIZA GARCIA ([id number]) [facility] ([facility]) [address] [place] [address] 50786 MCV (RBC) [Entitic vol] 96 fL Normal 80-100 [facility] Comment on above: Performed By: #### 5 7021-8 #### LUIZA GARCIA (06801) [facility] ([facility]) [address] [place] [address] 89583 Monocytes (Bld) [#/Vol] 0.33 x10*3/uL Normal 0.10-1.00 [facility] Comment on above: Performed By: #### 5 7021-8 #### LUIZA GARCIA (22104) [facility] ([facility]) [address] [place] [address] 22781 Monocytes/100 WBC (Bld) 6.1 % Normal 2.0-10.0 [facility] Comment on above: Performed By: #### 5 7021-8 #### LUIZA GARCIA (78856) [facility] ([facility]) [address] [place] [address] 72831 Neutrophils (Bld) [#/Vol] 3.23 x10*3/uL Normal 1.20-7.70 [facility] Comment on above: Result Comment: Perc ent differential counts (%) should be interpreted in the context of the absolute cell counts (cells/uL). Performed By: #### 5 7021-8 #### LUIZA GARCIA (21833) [facility] ([facility]) [address] [place] [address] 70674 Neutrophils/100 WBC (Bld) 59.7 % Normal 40.0-80.0 [facility] Comment on above: Performed By: #### 5 7021-8 #### LUIZA GARCIA (48530) [facility] ([facility]) [address] [place] [address] 55567 Nucleated RBC/100 WBC (Bld) [Ratio] 0.0 /100 WBCs Normal 0.0-0.0 [facility] Comment on above: Performed By: #### 5 7021-8 #### LUIZA GARCIA (14552) [facility] ([facility]) [address] [place] [address] 93015 Platelets (Bld) [#/Vol] 213 x10*3/uL Normal 150-450 [facility] Comment on above: Performed By: #### 5 7021-8 #### LUIZA GARCIA (64261) [facility] ([facility]) [address] [place] [address] 14050 RBC (Bld) [#/Vol] 4.21 x10*6/uL Normal 4.00-5.20 [facility] Comment on above: Performed By: #### 5 7021-8 #### LUIZA GARCIA (99462) [facility] ([facility]) [address] [place] [address] 33923 WBC (Bld) [#/Vol] 5.4 x10*3/uL Normal 4.4-11.3 [facility] Comment on above: Performed By: #### 5 7021-8 #### LUIZA GARCIA (87179) [facility] ([facility]) [address] [place] [address] 62242 Cobalaminson 12-28-2023 Cobalamin (Vitamin B12) [Mass/Vol] 328 pg/mL Normal 211-911 [facility] Comment on above: Performed By: #### 2 132-9 #### LUIZA GARCIA (29999) [facility] ([facility]) [address] [place] [address] 97157 Comprehensive metabolic 2000 panelon 12-28-2023 Albumin BCP dye [Mass/Vol] 4.1 g/dL Normal 3.4-5.0 [facility] Comment on above: Performed By: #### 2 4323-8 #### LUIZA GARCIA (44441) [facility] ([facility]) [address] [place] [address] 00479 ALP [Catalytic activity/Vol] 73 U/L Normal 33-136 [facility] Comment on above: Performed By: #### 2 4323-8 #### LUIZA GARCIA (83077) [facility] ([facility]) [address] [place] [address] ALT With P-5'-P [Catalytic activity/Vol] 13 U/L Normal 7-45 [facility] Comment on above: Result Comment: Makenna ents treated with Sulfasalazine may generate falsely decreased results for ALT. Performed By: #### 2 4323-8 #### LUIZA GARCIA (04649) [facility] ([facility]) [address] [place] [address] Anion gap [Moles/Vol] 13 mmol/L Normal 10-20 [facility] Comment on above: Performed By: #### 2 4323-8 #### LUIZA GARCIA (80351) [facility] ([facility]) [address] [place] [address] AST With P-5'-P [Catalytic activity/Vol] 13 U/L Normal 9-39 [facility] Comment on above: Performed By: #### 2 4323-8 #### LUIZA GARCIA (92492) [facility] ([facility]) [address] [place] [address] Bilirubin [Mass/Vol] 0.3 mg/dL Normal 0.0-1.2 [facility] Comment on above: Performed By: #### 2 4323-8 #### LUIZA GARCIA (34785) [facility] ([facility]) [address] [place] [address] Calcium [Mass/Vol] 8.9 mg/dL Normal 8.6-10.3 [facility] Comment on above: Performed By: #### 2 4323-8 #### LUIZA GARCIA (94445) [facility] ([facility]) [address] [place] [address] Chloride [Moles/Vol] 104 mmol/L Normal 98-107 [facility] Comment on above: Performed By: #### 2 4323-8 #### LUIZA GARCIA (13844) [facility] ([facility]) [address] [place] [address] CO2 [Moles/Vol] 28 mmol/L Normal 21-32 [facility] Comment on above: Performed By: #### 2 4323-8 #### LUIZA GARCIA (97779) [facility] ([facility]) [address] [place] [address] 03929 Creatinine [Mass/Vol] 0.84 mg/dL Normal 0.50-1.05 [facility] Comment on above: Performed By: #### 2 4323-8 #### LUIZA GARCIA (06009) [facility] ([facility]) [address] [place] [address] 31791 Glomerular filtration rate/1.73 sq M.predicted 78 mL/min/1.73m*2 Normal >60 [facility] Comment on above: Result Comment: Calc ulations of estimated GFR are performed using the 2020 CKD-EPI Study Refit equation without the race variable for the IDMS-Traceable creatinine methods. https://jasn.asnjournals.org/content/early//ASN.00479 36442 Performed By: #### 2 4323-8 #### LUIZA GARCIA (68893) [facility] ([facility]) [address] [place] [address] 26875 Glucose [Mass/Vol] 106 mg/dL High 74-99 [facility] Comment on above: Performed By: #### 2 4323-8 #### LUIZA GARCIA (10564) [facility] ([facility]) [address] [place] [address] 26118 Potassium [Moles/Vol] 4.7 mmol/L Normal 3.5-5.3 [facility] Comment on above: Performed By: #### 2 4323-8 #### LUIZA GARCIA (82758) [facility] ([facility]) [address] [place] [address] 74952 Protein [Mass/Vol] 6.7 g/dL Normal 6.4-8.2 [facility] Comment on above: Performed By: #### 2 4323-8 #### LUIZA GARCIA (05420) [facility] ([facility]) [address] [place] [address] 78911 Sodium [Moles/Vol] 140 mmol/L Normal 136-145 [facility] Comment on above: Performed By: #### 2 4323-8 #### LUIZA GARCIA (93483) [facility] ([facility]) [address] [place] [address] 04312 Urea nitrogen [Mass/Vol] 18 mg/dL Normal 6-23 [facility] Comment on above: Performed By: #### 2 4323-8 #### LUIZA GARCIA (57488) [facility] ([facility]) [address] [place] [address] 08652 Folateon 12-28-2023 Folate [Mass/Vol] 18.6 ng/mL Normal >5.0 [facility] Comment on above: Order Comment: Low < 3.4 Borderline 3.4-5.0 Normal >5.0 Patients receiving more than 5 mg/day of biotin may have interference in test results. A sample should be taken no sooner than eight hours after previous dose. Contact the testing laboratory for additional information. Performed By: #### 2 284-8 #### LUIZA GARCIA (16588) [facility] ([facility]) [address] [place] [address] HbA1c (Bld) [Mass fraction]o n 12-28-2023 Average glucose Estimated from glycated hemoglobin (Bld) [Mass/Vol] 117 mg/dL Normal Not Established [facility] Comment on above: Order Comment: Diagn osis of Qjpqhokt-BdydgtPwt-Lhfgvfap: < or = 5.6%Increased risk for developing diabetes: 5.7-6.4%Diagnostic of diabetes: > or = 6.5% Performed By: #### 2 132-9 #### LUIZA GARCIA (22723) [facility] ([facility]) [address] [place] [address] 87674 Hemoglobin A1c/Hemoglobin.to roman 12-28-2023 HbA1c (Bld) [Mass fraction] 5.7 % High See comment [facility] Comment on above: Order Comment: Diagn osis of Zpqlmnlh-KgnajqTen-Qvesmyig: < or = 5.6%Increased risk for developing diabetes: 5.7-6.4%Diagnostic of diabetes: > or = 6.5% Performed By: #### 2 132-9 #### LUIZA GARCIA (56488) [facility] ([facility]) [address] [place] [address] 82958 Immunoglobulin light chains. free panel (S)on 12-28-2023 Immunoglobulin light chains.kappa [Mass/Vol] 1.78 mg/dL Normal 0.33-1.94 [facility] Comment on above: Order Comment: [...] By: #### 2 132-9 #### LUIZA GARCIA (04802) [facility] ([facility]) [address] [place] [address] 57698 Immunoglobulin light chains.kappa/Immunoglo bulin light chains.lambda (S) [Mass ratio] 1.17 Normal 0.26-1.65 [facility] Comment on above: Order Comment: [...] By: #### 2 132-9 #### LUIZA GARCIA (10866) [facility] ([facility]) [address] [place] [address] 50782 Immunoglobulin light chains.lambda [Mass/Vol] 1.52 mg/dL Normal 0.57-2.63 [facility] Comment on above: Order Comment: [...] By: #### 2 132-9 #### LUIZA GARCIA (27614) [facility] ([facility]) [address] [place] [address] 63966 Thiamine pyrophosphateon Thiamine pyrophosphate (Bld) [Moles/Vol] 135 nmol/L Normal 70-180 [facility] Comment on above: Result Comment: [...] developed and its performance characteristics determined by [employer]. It has not been cleared or approved by the [place] Food and Drug Administration. This test was performed in a CLIA certified laboratory and is intended for clinical purposes. Performed By: [facility] [address] [place] [address] 65257 Claims Service Representative: Johnathon Talbert MD, PhD CLIA Number: [id number] Performed By: #### 2 132-9 #### LUIZA GARCIA (80135) [facility] ([facility]) [address] [place] [address] 77882 Thyrotropinon 12-28-2023 TSH Qn 3.59 m[IU]/L Normal 0.44-3.98 [facility] Comment on above: Order Comment: TSH t esting is performed using different testing methodology at [facility] than at other [facility]. Direct result comparisons should only be made within the same method. Performed By: #### 3 016-3 #### LUIZA GARCIA (92169) [facility] ([facility]) [address] [place] [address] 14874 carBAMazepineon 12-28-2023 carBAMazepine [Mass/Vol] 8.1 ug/mL Normal 4.0-12.0 [facility] Comment on above: Performed By: #### 2 132-9 #### LUIZA GARCIA (22321) [facility] ([facility]) [address] [place] [address] Ankle Brachial Indexon 12-25 Ankle Brachial Index [facility] [place] [address] Ankle Brachial Index 12/26/23 1350 MR#: [id number] Acct: [id number] Name: VANI ESCOBAR Rep #: [id number] : 1960 63 From: Adair Rowe MD Attending Dr: Dr. Deon Mendoza MD Status: R EG CLI Ordering Dr: Deon Mendoza MD Date: 12/26/23 Location: [facility] Sex: F C Admitted: Reason For Study: [...] Physician: Deon Mendoza Referring Physician: SAHIL BELLA LEVEL VIAL INSPECTOR-C Performed By: Berenice Rodriguez RVT and Student 12/26/23 1550 Date Adair Rowe MD CC: LEVEL VIAL INSPECTOR-C Sahil Bella; Dr. Deon Mendoza MD Date Dictated: 12/26/23 1350 Date Transcribed: 12/26/23 1550 Landscape Specialist: Signed Normal [facility] Ankle min 3 Viewson 12-26-19 Ankle min 3 Views [facility] Imaging Services [address] [place], [place] [address] Ankle min 3 Views MR#: [id number] Acct: [id number] Name: VANI ESCOBAR Rep #: [id number] : 1960 F 63 From: Anthony Clayton MD PCP: LUIS MIGUEL Botello Status: REG CLI Study: Ankle min 3 Views Date of Exam: 12/26/23 Exam# [id number] Ordering Dr: Deon Mendoza MD [id number] STUDY: X-RAY - LEFT ANKLE REASON FOR [...] 14:28 EDT Reading Location ID and State: [facility] / [place] , Service support , CC: LUIS MIGUEL Bella; Dr. Deon Mendoza MD Landscape Specialist: Signed Normal [facility] Ankle min 3 Views [facility] Imaging Services [address] [place], [place] [address] Ankle min 3 Views MR#: [id number] Acct: [id number] Name: VANI ESCOBAR Rep #: [id number] : 1960 F 63 From: Anthony Clayton MD PCP: LUIS MIGUEL Botello Status: REG CLI Study: Ankle min 3 Views Date of Exam: 12/26/23 Exam# [id number] Ordering Dr: Deon Mendoza MD [id number] STUDY: X-RAY - RIGHT ANKLE REASON FOR [...] diffuse soft tissue swelling. Electronically Signed: Anthony lCayton MD at 14:27 EDT , CC: LUIS MIGUEL Bella; Dr. Deon Mendoza MD Landscape Specialist: Signed Normal [facility] Foot min 3 Viewson 4 Foot min 3 Views [facility] Imaging Services [address] [place] [address] Foot min 3 Views MR#: [id number] Acct: [id number] Name: VANI ESCOBAR Rep #: [id number] : 1960 F 63 From: Anthony Clayton MD PCP: LUIS MIGUEL Botello Status: REG CLI Study: Foot min 3 Views Date of Exam: 12/26/23 Exam# [id number] Ordering Dr: Deon Mendoza MD [id number] STUDY: X-RAY - LEFT FOOT CLINICAL: Female, [...] 14:29 EDT Reading Location ID and State: [address] [place] [address] , Service support , CC: LUIS MIGUEL Bella; Dr. Deon Mendoza MD Landscape Specialist: Signed Normal [facility] Foot min 3 Views [facility] Imaging Services [address] [place] [address] Foot min 3 Views MR#: [id number] Acct: [id number] Name: VANI ESCOBAR Rep #: [id number] : 1960 F 63 From: Anthony Clayton MD PCP: LUIS MIGUEL Botello Status: REG CLI Study: Foot min 3 Views Date of Exam: 12/26/23 Exam# [id number] Ordering Dr: Deon Mendoza MD [id number] STUDY: X-RAY - RIGHT FOOT CLINICAL: Female, [...] Signed: Anthony Clayton MD at 14:30 EDT Reading Location ID and State: [address] [place] [address] , Service support , CC: LEVEL VIAL INSPECTOR-C Sahil Bella; Dr. Deon Mendoza MD Landscape Specialist: Signed Normal [facility] Neurology Visit Reporton Neurology Visit Report [facility] [address], [address] [place] [address] OFFICE VISIT Date of Service: 12/03/23 MR#: [id number] Acct: [id number] Name: VANI ESCOBAR Rep #: [id number] : 1960 Provider: Dr. Deon madden MD Age/Sex: 63/F Location: [facility]. Status: Signed with Addenda ADDENDUM by Dr. Deon Mendoza MD on 01/03/24 at 1638 Addendum Addendum (01/03/2024): The patient wishes to resume monthly B12 1000 mcg IM injections for her fatigue to be administered at an outpatient clinic of her choice and a prescription for this will be sent to her pharmacy. 01/03/24 1638 Date Deon Mendoza MD cc: * Signed HPI HPI [...] not have any history of concussion or COMMERCIAL LITIGATION ATTORNEY infection. She was adopted and does not know her history or family history. She reported that an EEG in years past was abnormal (an official report is presently not available). She stated that a head MRI performed in years past was normal (an official report is presently not available). She had previously seen a neurologist at the [facility]. An attempt to take a generic form of Tegretol-XR in the past was not well-tolerated due to a feeling that a seizure was about to occur and generalized feeling of sickness. She had previously seen a patent solicitor for bilateral foot pain (the patient is [...] serum free light chains, B12, folate, CMP (03/07/2022):???Glucos e 101. Carbamazepine level (03/07/2022):???9.3 (in therapeutic range) [...] tibial F (more content not included)... Normal [facility] DBT Breast - bilateralon No mammographic evidence of malignancy. BI-RADS CATEGORY: BI-RADS Category: 1 Negative. Recommendation: Routine Screening Mammogram in 1 Year. Recommended Date: 1 Year. Laterality: Bilateral. MACRO: None Signed by: Martin Mccoy 03/09/2023 11:19 AM Dictation workstation: [id number] MMODAL Interpreted By: Martin Mccoy, STUDY: BI MAMMO BILATERAL SCREENING TOMOSYNTHESIS; 03/08/2023 11:37 am ACCESSION NUMBER(S): [id number] ORDERING CLINICIAN: INTERFACE UNSPECIFIELDPROVIDER INDICATION: Screening. COMPARISON: [...] SCREENING TOMOSYNTHESIS; 03/08/2023 11:37 am ACCESSION NUMBER(S): [id number] ORDERING CLINICIAN: INTERFACE UNSPECIFIELDPROVIDER INDICATION: Screening. COMPARISON: [...] Martin Mccoy 03/09/2023 11:19 AM Dictation workstation: [id number] [facility] Work Phone: DBT Breast - bilateralOrdere d By: Martin Mccoy on 03-09-2023 [facility] Work Phone: DBT Breast - bilateralon Radiology Study observation (narrative) [facility] Work Phone: CBC panel Auto (Bld)on 01-12 Erythrocyte distribution width (RBC) [Ratio] 13.1 % Normal 11.5-14.5 [facility] Comment on above: Performed By: #### 5 8410-2 #### LUIZA GARCIA (85046) [facility] ([facility]) [address] [place] [address] 22609 Hematocrit (Bld) [Volume fraction] 39.3 % Normal 36.0-46.0 [facility] Comment on above: Performed By: #### 5 8410-2 #### LUIZA GARCIA (42912) [facility] ([facility]) [address] [place] [address] 71133 Hemoglobin (Bld) [Mass/Vol] 12.8 g/dL Normal 12.0-16.0 [facility] Comment on above: Performed By: #### 5 8410-2 #### LUIZA GARCIA (54539) [facility] ([facility]) [address] [place] [address] 14122 MCH (RBC) [Entitic mass] 31.2 pg Normal 26.0-34.0 [facility] Comment on above: Performed By: #### 5 8410-2 #### LUIZA GARCIA (00302) [facility] ([facility]) [address] [place] [address] 15663 MCHC (RBC) [Mass/Vol] 32.6 g/dL Normal 32.0-36.0 [facility] Comment on above: Performed By: #### 5 8410-2 #### LUIZA GARCIA (26332) [facility] ([facility]) [address] [place] [address] 33324 MCV (RBC) [Entitic vol] 96 fL Normal 80-100 [facility] Comment on above: Performed By: #### 5 8410-2 #### LUIZA GARCIA (72181) [facility] ([facility]) [address] [place] [address] 36575 Nucleated RBC/100 WBC (Bld) [Ratio] 0.0 /100 WBCs Normal 0.0-0.0 [facility] Comment on above: Performed By: #### 5 8410-2 #### LUIZA GARCIA (53584) [facility] ([facility]) [address] [place] [address] 28154 Platelet mean volume (Bld) [Entitic vol] 11.2 fL Normal 7.5-11.5 [facility] Comment on above: Performed By: #### 5 8410-2 #### LUIZA GARCIA (00680) [facility] ([facility]) [address] [place] [address] 05789 Platelets (Bld) [#/Vol] 204 x10*3/uL Normal 150-450 [facility] Comment on above: Performed By: #### 5 8410-2 #### LUIZA GARCIA (91392) [facility] ([facility]) [address] [place] [address] 80435 RBC (Bld) [#/Vol] 4.10 x10*6/uL Normal 4.00-5.20 [facility] Comment on above: Performed By: #### 5 8410-2 #### LUIZA GARCIA (98935) [facility] ([facility]) [address] [place] [address] 62359 WBC (Bld) [#/Vol] 5.7 x10*3/uL Normal 4.4-11.3 [facility] Comment on above: Performed By: #### 5 8410-2 #### LUIZA GARCIA (45337) [facility] ([facility]) [address] [place] [address] 63713 Cobalaminson 01-12-2023 Cobalamin (Vitamin B12) [Mass/Vol] 521 pg/mL Normal 211-911 [facility] Comment on above: Performed By: #### 2 132-9 #### LUIZA GARCIA (86861) [facility] ([facility]) [address] [place], [place] [address] Comprehensive metabolic 2000 panelon 01-12-2023 Albumin BCP dye [Mass/Vol] 3.9 g/dL Normal 3.4-5.0 [facility] Comment on above: Performed By: #### 2 4323-8 #### LUIZA GARCIA (07191) [facility] ([facility]) [address] [place] [address] 69303 ALP [Catalytic activity/Vol] 70 U/L Normal 33-136 [facility] Comment on above: Performed By: #### 2 4323-8 #### LUIZA GARCIA (63054) [facility] ([facility]) [address] [place] [address] 69476 ALT With P-5'-P [Catalytic activity/Vol] 14 U/L Normal 7-45 [facility] Comment on above: Result Comment: Makenna ents treated with Sulfasalazine may generate falsely decreased results for ALT. Performed By: #### 2 4323-8 #### LUIZA GARCIA (59159) [facility] ([facility]) [address] [place] [address] 18452 Anion gap [Moles/Vol] 13 mmol/L Normal 10-20 [facility] Comment on above: Performed By: #### 2 4323-8 #### LUIZA GARCIA (43181) [facility] ([facility]) [address] [place] [address] 51758 AST With P-5'-P [Catalytic activity/Vol] 14 U/L Normal 9-39 [facility] Comment on above: Performed By: #### 2 4323-8 #### LUIZA GARCIA (82499) [facility] ([facility]) [address] [place] [address] 01052 Bilirubin [Mass/Vol] 0.3 mg/dL Normal 0.0-1.2 [facility] Comment on above: Performed By: #### 2 4323-8 #### LUIZA GARCIA (42786) [facility] ([facility]) [address] [place] [address] Calcium [Mass/Vol] 8.9 mg/dL Normal 8.6-10.3 [facility] Comment on above: Performed By: #### 2 4323-8 #### LUIZA GARCIA (00317) [facility] ([facility]) [address] [place] [address] Chloride [Moles/Vol] 105 mmol/L Normal 98-107 [facility] Comment on above: Performed By: #### 2 4323-8 #### LUIZA GARCIA (60926) [facility] ([facility]) [address] [place] [address] CO2 [Moles/Vol] 29 mmol/L Normal 21-32 [facility] Comment on above: Performed By: #### 2 4323-8 #### LUIZA GARCIA (59106) [facility] ([facility]) [address] [place] [address] Creatinine [Mass/Vol] 0.71 mg/dL Normal 0.50-1.05 [facility] Comment on above: Performed By: #### 2 4323-8 #### LUIZA GARCIA (89161) [facility] [facility] [address] [place] [address] GFR/1.73 sq M.predicted MDRD (S/P/Bld) [Vol rate/Area] mL/min/{1.73_m2} Normal >60 [facility] Comment on above: Result Comment: Calc ulations of estimated GFR are performed using the 2020 CKD-EPI Study Refit equation without the race variable for the IDMS-Traceable creatinine methods. https://jasn.asnjournals.org/content//ASN.85191 34047 Performed By: #### 2 4323-8 #### LUIZA GARCIA ([id number]) [facility] ([facility]) [address] [place] [address] Glucose [Mass/Vol] 106 mg/dL High 74-99 [facility] Comment on above: Performed By: #### 2 4323-8 #### LUIZA GARCIA ([id number]) [facility] ([facility]) [address] [place] [address] Potassium [Moles/Vol] 4.5 mmol/L Normal 3.5-5.3 [facility] Comment on above: Performed By: #### 2 4323-8 #### LUIZA GARCIA ([id number]) [facility] ([facility]) [address] [place] [address] Protein [Mass/Vol] 6.2 g/dL Low 6.4-8.2 [facility] Comment on above: Performed By: #### 2 4323-8 #### LUIZA GARCIA ([id number]) [facility] ([facility]) [address] [place] [address] Sodium [Moles/Vol] 142 mmol/L Normal 136-145 [facility] Comment on above: Performed By: #### 2 4323-8 #### LUIZA GARCIA ([id number]) [facility] ([facility]) [facility] [place] [address] Urea nitrogen [Mass/Vol] 18 mg/dL Normal 6-23 [facility] Comment on above: Performed By: #### 2 4323-8 #### LUIZA GARCIA ([id number]) [facility] ([facility]) [facility] [place] [address] Lipid 1996 panelon 3 Cholesterol [Mass/Vol] 223 mg/dL High 0-199 [facility] Comment on above: Result Comment: Age [...] By: #### 2 4331-1 #### LUIZA GARCIA ([id number]) [facility] ([facility]) [facility] [place] [address] Cholesterol in HDL [Mass/Vol] 73.0 mg/dL Normal [facility] Comment on above: Result Comment: Age Very Low Low Normal High 0-19 Y < 35 < 40 40-45 ---- 20-24 Y ---- < 40 >45 ---- >24 Y ---- < 40 40-60 >60 Performed By: #### 2 4331-1 #### LUIZA GARCIA ([id number]) [facility] ([facility]) [address] [place] [address] Cholesterol in LDL [Mass/Vol] 132 mg/dL Low 140-190 [facility] Comment on above: Result Comment: Near Borderline AGE Desirable Optimal High High Very High 0-19 Y 0 - 109 --- 110-129 >/= 130 ---- 20-24 Y 0 - 119 --- 120-159 >/= 160 ---- >24 Y 0 - 99 100-129 130-159 160-189 >/=190 Performed By: #### 2 4331-1 #### LUIZA GARCIA ([id number]) [facility] ([facility]) [address] [place] [address] Cholesterol in VLDL [Mass/Vol] 18 mg/dL Normal 0-40 [facility] Comment on above: Performed By: #### 2 4331-1 #### LUIZA GARCIA ([id number]) [facility] ([facility]) [address] [place] [address] CHOLESTEROL/HDL RATIO 3.1 Normal [facility] Comment on above: Result Comment: Ref Values Desirable < 3.4 High Risk > 5.0 Performed By: #### 2 4331-1 #### LUIZA GARCIA ([id number]) [facility] ([facility]) [address] [place] [address] NON HDL CHOLESTEROL 150 mg/dL High 0-149 [facility] Comment on above: Result Comment: Age Desirable Borderline High High Very High 0-19 Y 0 - 119 120 - 144 >/= 145 >/= 160 20-24 Y 0 - 149 150 - 189 >/= 190 ---- >24 Y 30 mg/dL above LDL Cholesterol goal Performed By: #### 2 4331-1 #### LUIZA GARCIA ([id number]) [facility] ([facility]) [address] [place] [address] Triglyceride [Mass/Vol] 89 mg/dL Normal 0-149 [facility] Comment on above: Result Comment: [...] By: #### 2 4331-1 #### LUIZA GARCIA ([id number]) [facility] ([facility]) [address] [place] [id number] carBAMazepineon 01-12-2023 carBAMazepine [Mass/Vol] 7.5 ug/mL Normal 4.0-12.0 [facility] Comment on above: Performed By: #### 3 432-2 #### FRENCH Carmona ([id number]) [facility] ([facility]) [id number] [place] [id number] Talya 04-18-2022 ARCHANA Telephone (MILDRED) VANI ([id number]) 1960 F BOBY Date Time Provider Department [...] Status:Closed by ARIAS RUGGIERO on 04/18/22 Normal [facility] VIT B1-THIAMINE WHOLE BLDon 03-12-2022 VIT B1-THIAMINE WHOLE BLD 122 nmol/L Normal 70-180 [facility] Comment on above: Result Comment: INTE RPRETIVE INFORMATION: Vitamin B1, Whole Blood This assay measures the concentration of thiamine diphosphate (TDP), the primary active form of vitamin B1. Approximately 90 percent of vitamin B1 present in whole blood is TDP. Thiamine and thiamine monophosphate, which comprise the remaining 10 percent, are not measured. This test was developed and its performance characteristics determined by [facility]. It has not been cleared or approved by the US Food and Drug Administration. This test was performed in a CLIA certified laboratory and is intended for clinical purposes. Performed By: [facility] [address] [place] [address] Claims Service Representative: Johnathon Talbert MD, PhD Performed By: #### C BCDF #### [place] [address] No Panel Informationon 03-10 Please click on the link to view the study images Normal [facility] [address] Work Phone: KAPPA/LAMBDA FREE LIGHT Satya PAL 03-08-2022 FREE KAPPA LIGHT CHAINS,S 1.87 mg/dL Normal 0.33 - 1.94 [facility] Comment on above: Performed By: #### C BCDF #### [address] [address] FREE KAPPA/LAMBDA RATIO,S 0.80 Normal 0.26 - 1.65 [facility] Comment on above: Result Comment: Unde tected [...] laboratory. Performed By: #### C BCDF #### [address] [address] FREE LAMBDA LIGHT CHAIN,S 2.34 mg/dL Normal 0.57 - 2.63 [facility] Comment on above: Performed By: #### C BCDF #### [address] [address] CARBAMAZEPINEon 03-07-2022 CARBAMAZEPINE 9.3 ug/mL Normal 4.0 - 12.0 [facility] Comment on above: Performed By: #### C ARB #### [address] [address] CBCon 03-07-2022 Erythrocyte distribution width (RBC) [Ratio] 13.2 % Normal 11.5 - 14.5 [facility] Comment on above: Performed By: #### C BC #### [address] [address] Hematocrit (Bld) [Volume fraction] 39.3 % Normal 36.0 - 46.0 [facility] Comment on above: Performed By: #### C BC #### [address] [address] Hemoglobin (Bld) [Mass/Vol] 13.2 g/dL Normal 12.0 - 16.0 [facility] Comment on above: Performed By: #### C BC #### [address] [address] MCHC (RBC) [Mass/Vol] 33.6 g/dL Normal 32.0 - 36.0 [facility] Comment on above: Performed By: #### C BC #### [address] [address] MCV (RBC) [Entitic vol] 95 fL Normal 80 - 100 [facility] Comment on above: Performed By: #### C BC #### [address] [address] Platelets (Bld) [#/Vol] 225 10*3/uL Normal 150 - 450 [facility] Comment on above: Performed By: #### C BC #### [address] [address] RBC 4.15 x10E12/L Normal 4.00 - 5.20 [facility] Comment on above: Performed By: #### C BC #### [address] [address] WBC (Bld) [#/Vol] 5.5 10*3/uL Normal 4.4 - 11.3 [facility] Comment on above: Performed By: #### C BC #### [address] [address] COMPREHENSIVE PANELon 2021 Albumin [Mass/Vol] 4.2 g/dL Normal 3.4 - 5.0 [facility] Comment on above: Performed By: #### C MP #### [address] [address] ALP [Catalytic activity/Vol] 75 U/L Normal 33 - 136 [facility] Comment on above: Performed By: #### C MP #### [address] [address] ALT [Catalytic activity/Vol] 14 U/L Normal 7 - 45 [facility] Comment on above: Result Comment: Makenna ents treated with Sulfasalazine may generate falsely decreased results for ALT. Performed By: #### C MP #### [address] [address] Anion gap [Moles/Vol] 12 mmol/L Normal 10 - 20 [facility] Comment on above: Performed By: #### C MP #### [address] [address] AST [Catalytic activity/Vol] 14 U/L Normal 9 - 39 [facility] Comment on above: Performed By: #### C MP #### [address] [address] Bilirubin [Mass/Vol] 0.3 mg/dL Normal 0.0 - 1.2 [facility] Comment on above: Performed By: #### C MP #### [address] [address] Calcium [Mass/Vol] 9.2 mg/dL Normal 8.6 - 10.3 [facility] Comment on above: Performed By: #### C MP #### [address] [address] Chloride [Moles/Vol] 103 mmol/L Normal 98 - 107 [facility] Comment on above: Performed By: #### C MP #### [address] [address] Creatinine [Mass/Vol] 0.79 mg/dL Normal 0.50 - 1.05 [facility] Comment on above: Performed By: #### C MP #### [address] [address] GFR/1.73 sq M.predicted among non-blacks MDRD (S/P/Bld) [Vol rate/Area] 84 mL/min/{1.73_m2} Normal >90 [facility] Comment on above: Result Comment: CALC ULATIONS OF ESTIMATED GFR ARE PERFORMED USING THE 2020 CKD-EPI STUDY REFIT EQUATION WITHOUT THE RACE VARIABLE FOR THE IDMS-TRACEABLE CREATININE METHODS. https://jasn.asnjournals.org/content///ASN.61667 41091 Performed By: #### C MP #### [address] [address] Glucose [Mass/Vol] 101 mg/dL High 74 - 99 [facility] Comment on above: Performed By: #### C MP #### [address] [address] HCO3 (Bld) [Moles/Vol] 27 mmol/L Normal 21 - 32 [facility] Comment on above: Performed By: #### C MP #### [address] [address] Potassium [Moles/Vol] 4.3 mmol/L Normal 3.5 - 5.3 [facility] Comment on above: Performed By: #### C MP #### [address] [address] Protein [Mass/Vol] 7.0 g/dL Normal 6.4 - 8.2 [facility] Comment on above: Performed By: #### C MP #### [address] [address] Sodium [Moles/Vol] 138 mmol/L Normal 136 - 145 [facility] Comment on above: Performed By: #### C MP #### [address] [address] Urea nitrogen [Mass/Vol] 18 mg/dL Normal 6 - 23 [facility] Comment on above: Performed By: #### C MP #### [address] [address] Carbamazepine Level, Serumon 03-07-2022 carBAMazepine [Mass/Vol] 9.3 ug/mL 4.0 - 12.0 [facility] [address] Work Phone: FOLATE, SERUMon 03-07-2022 Folate [Mass/Vol] 19.6 ng/mL Normal >5.0 [facility] Comment on above: Result Comment: Low <3.4 Borderline 3.4-5.0 Normal >5.0 . Patients receiving more than 5 mg/day of biotin may have interference in test results. A sample should be taken no sooner than eight hours after previous dose. Contact the testing laboratory for additional information. Performed By: #### F OLA2 #### [address] [address] Folate, Serumon 03-07-2022 Folate [Mass/Vol] 19.6 ng/mL >5.0 [facility] [address] Work Phone: [phone] Comment on above: Low <3.4Borderline 3 .4-5.0Normal >5.0. Patients receiving more than 5 mg/day of biotin may have interference in test results. A sample should be taken no sooner than eight hours after previous dose. Contact the testing laboratory for additional information. Laboratory - Chemistry and C hemistry - challengeon 03-07-2022 Albumin BCP dye [Mass/Vol] 4.2 g/dL 3.4 - 5.0 [facility] [place] Work Phone: [phone] ALP [Catalytic activity/Vol] 75 U/L 33 - 136 [facility] [employer] [place] Work Phone: [phone] ALT With P-5'-P [Catalytic activity/Vol] 14 U/L 7 - 45 [facility] [employer] [place] Work Phone: [phone] Comment on above: Patients treated wit h Sulfasalazine may generate falsely decreased results for ALT. Anion gap [Moles/Vol] 12 mmol/L 10 - 20 [facility] [place] Work Phone: [phone] AST With P-5'-P [Catalytic activity/Vol] 14 U/L 9 - 39 [facility] [place] Work Phone: [phone] Bilirubin [Mass/Vol] 0.3 mg/dL 0.0 - 1.2 [facility] [place] Work Phone: [phone] Calcium [Mass/Vol] 9.2 mg/dL 8.6 - 10.3 [facility] [place] Work Phone: [phone] Chloride [Moles/Vol] 103 mmol/L 98 - 107 [facility] [place] Work Phone: [phone] CO2 [Moles/Vol] 27 mmol/L 21 - 32 [facility] [place] Work Phone: [phone] Creatinine [Mass/Vol] 0.79 mg/dL See Below [facility] [address] Work Phone: [phone] Comment on above: Reference Range: 0.5 0 - 1.05 Glucose [Mass/Vol] 101 mg/dL above high threshold 74 - 99 [facility] [address] Work Phone: [phone] Potassium [Moles/Vol] 4.3 mmol/L 3.5 - 5.3 [facility] [address] Work Phone: [phone] Protein [Mass/Vol] 7.0 g/dL 6.4 - 8.2 [facility] [address] Work Phone: [phone] Sodium [Moles/Vol] 138 mmol/L 136 - 145 [facility] [address] Work Phone: [phone] Thiamine (Bld) [Mass/Vol] 122 nmol/L 70-180 [facility] [address] Work Phone: [phone] Comment on above: INTERPRETIVE INFORMA TION: Vitamin B1, Whole BloodThis assay measures the concentration of thiamine diphosphate (TDP), the primary active form of vitamin B1. Approximately 90 percent of vitamin B1 present in whole blood is TDP. Thiamine and thiamine monophosphate, which comprise the remaining 10 percent, are not measured.This test was developed and its performance characteristics determined by [facility]. It has not been cleared or approved by the US Food and Drug Administration. This test was performed in a CLIA certified laboratory and is intended for clinical purposes.Performed By: [facility] [place] [id number] Director: Johnathon Talbert MD, PhD Urea nitrogen [Mass/Vol] 18 mg/dL 6 - [facility] [address] Work Phone: [phone] Laboratory - Hematology and Cell countson 03-07-2022 Erythrocyte distribution width (RBC) [Ratio] 13.2 % See Below [facility] [address] Work Phone: [phone] Comment on above: Reference Range: 11. 5 - 14.5 Hematocrit (Bld) [Volume fraction] 39.3 % See Below [facility] [address] Work Phone: [phone] Comment on above: Reference Range: 36. 0 - 46.0 Hemoglobin (Bld) [Mass/Vol] 13.2 g/dL See Below [facility] [address] Work Phone: [phone] Comment on above: Reference Range: 12. 0 - 16.0 MCHC (RBC) [Mass/Vol] 33.6 g/dL See Below [facility] [address] Work Phone: [phone] Comment on above: Reference Range: 32. 0 - 36.0 MCV (RBC) [Entitic vol] 95 fL 80 - 100 [facility] [address] Work Phone: [phone] Platelets (Bld) [#/Vol] 225 10*3/uL 150 - 450 [facility] [address] Work Phone: [phone] RBC (Bld) [#/Vol] 4.15 {x10E12/L} See Below [facility] [place] [address] Work Phone: [phone] Comment on above: Reference Range: 4.0 0 - 5.20 WBC (Bld) [#/Vol] 5.5 10*3/uL 4.4 - 11.3 [facility] [place] [address] Work Phone: [phone] Mamm - Screening Mammogram w / Tomosynthesison 03-07-2022 MG Breast Screening Normal [facility] [place] [address] Work Phone: [phone] Panel Informationon 03-07 0.80 1 See Below [facility] [address] Work Phone: [phone] Comment on above: Reference Range: 0.2 [...] 2.34 mg/dL See Below [facility] [address] Work Phone: [phone] Comment on above: Reference Range: 0.5 7 - 2.63 1.87 mg/dL See Below [facility] [address] Work Phone: [phone] Comment on above: Reference Range: 0.3 3 - 1.94 84 {mL/min/1.73m2} >90 [facility] [address] Work Phone: [phone] Comment on above: CALCULATIONS OF YOLANDA MATED GFR ARE PERFORMED USING THE 2020 CKD-EPI STUDY REFIT EQUATION WITHOUT THE RACE VARIABLE FOR THE IDMS-TRACEABLE CREATININE METHODS.https://jasn.asnjournals.org/content//A .5068825930 TSHon 03-07-2022 TSH Qn 2.58 m[IU]/L Normal 0.44 - 3.98 [facility] Comment on above: Result Comment: TSH testing is performed using different testing methodology at [facility] than at [facility]. Direct result comparisons should only be made within the same method. Performed By: #### T SH2 #### [address] [address] TSH - Thyroid Stimulating Ho rmone, Serumon 03-07-2022 TSH Qn 2.58 m[IU]/L See Below [facility] [address] Work Phone: [phone] Comment on above: Reference Range: 0.4 4 - 3.98 TSH testing is performed using different testing methodology at [facility] than at [facility]. Direct result comparisons should only be made within the same method. VITAMIN B12on 03-07-2022 Cobalamin (Vitamin B12) [Mass/Vol] 551 pg/mL Normal 211 - 911 [facility] Comment on above: Performed By: #### C BCDF #### [address] [address] Vitamin B12, Serumon 022 Cobalamin (Vitamin B12) [Mass/Vol] 551 pg/mL 211 - 911 [facility] [address] Work Phone: [phone] CREATIVE DEVELOPER - Office Visiton 08-0 2 CREATIVE DEVELOPER - Office Visit Diagnoses/Problems Health Maintenance/Risks Encounter for preventive health examination (V70.0) (Z00.00) Assessed Visit for screening mammogram (V76.12) (Z12.31) Menopause (627.2) (Z78.0) Bulky or enlarged uterus (621.2) (N85.2) Orders Ultrasound Pelvis Transabdominal With Transvaginal; Status:Hold For - Scheduling; Requested for:[id number]; Radiologist to Determine Optimal Study : Y What are the patient's signs and symptoms? 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 Patient denies a history of abnormal [...] Normal vaginal delivery (650) (O80) 11/1979_FT_Female_7# 3oz 04/1982_42weeks_Male_9 # 1oz 04/1987_FT_Male_7# 9oz 05/1989_FT_Male_7# 8oz History of Pap test, as part of routine gynecological examination (V76.2) (Z01.419) 07/2020 Surgical History Problems History of Cholecystectomy History of Elbow surgery History of Knee replacement History of Tubal ligation bilateral History of [place] tooth extraction Family History Mother No pertinent [...] Vitamin D-3 TABS Vitals Vital Signs Recorded: [id number] 01:47PM Yviwvyny123 Wcfgdsnmh25 Height5 ft 2 in Iqxqdq456 lb 5.50 oz BMI Kibqcfhart77.1 kg/m2 BSA Calculated2.24 LMPMENO Physical Exam Constitutional: [...] Nov 11 2021 2:05PM EST (Author) Normal [facility] CBC AND DIFFERENTIALon 07-18 Basophils (Bld) [#/Vol] 0.00 10*3/uL Normal 0.00 - 0.10 [facility] Comment on above: Performed By: #### C BCDF #### [address] [address] Basophils/100 WBC (Bld) 0.5 % Normal 0.0 - 2.0 [facility] Comment on above: Performed By: #### C BCDF #### [address] [address] Eosinophils (Bld) [#/Vol] 0.10 10*3/uL Normal 0.00 - 0.70 [facility] Comment on above: Performed By: #### C BCDF #### [address] [address] Eosinophils/100 WBC (Bld) 1.1 % Normal 0.0 - 6.0 [facility] Comment on above: Performed By: #### C BCDF #### [address] [address] Erythrocyte distribution width (RBC) [Ratio] 14.0 % Normal 11.5 - 14.5 [facility] Comment on above: Performed By: #### C BCDF #### [address] [address] Hematocrit (Bld) [Volume fraction] 39.0 % Normal 36.0 - 46.0 [facility] Comment on above: Performed By: #### C BCDF #### [address] [address] Hemoglobin (Bld) [Mass/Vol] 13.4 g/dL Normal 12.0 - 16.0 [facility] Comment on above: Performed By: #### C BCDF #### [address] [address] Lymphocytes (Bld) [#/Vol] 1.80 10*3/uL Normal 1.20 - 4.80 [facility] Comment on above: Performed By: #### C BCDF #### [address] [address] Lymphocytes/100 WBC (Bld) 30.9 % Normal 13.0 - 44.0 [facility] Comment on above: Performed By: #### C BCDF #### [address] [address] MCHC (RBC) [Mass/Vol] 34.3 g/dL Normal 32.0 - 36.0 [facility] Comment on above: Performed By: #### C BCDF #### [address] [address] MCV (RBC) [Entitic vol] 93 fL Normal 80 - 100 [facility] Comment on above: Performed By: #### C BCDF #### [address] [address] Monocytes (Bld) [#/Vol] 0.30 10*3/uL Normal 0.10 - 1.00 [facility] Comment on above: Performed By: #### C BCDF #### [address] [address] Monocytes/100 WBC (Bld) 5.6 % Normal 2.0 - 10.0 [facility] Comment on above: Performed By: #### C BCDF #### [address] [address] Neutrophils (Bld) [#/Vol] 3.60 10*3/uL Normal 1.20 - 7.70 [facility] Comment on above: Result Comment: Perc ent differential counts (%) should be interpreted in the context of the absolute cell counts (cells/L). Performed By: #### C BCDF #### [address] [address] Neutrophils/100 WBC (Bld) 61.9 % Normal 40.0 - 80.0 [facility] Comment on above: Performed By: #### C BCDF #### [address] [address] Platelets (Bld) [#/Vol] 229 10*3/uL Normal 150 - 450 [facility] Comment on above: Performed By: #### C BCDF #### [address] [address] RBC 4.20 x10E12/L Normal 4.00 - 5.20 [facility] Comment on above: Performed By: #### C BCDF #### [address] [address] WBC (Bld) [#/Vol] 5.8 10*3/uL Normal 4.4 - 11.3 [facility] Comment on above: Performed By: #### C BCDF #### [address] [address] COMPREHENSIVE PANELon 2021 Albumin [Mass/Vol] 4.3 g/dL Normal 3.4 - 5.0 [facility] Comment on above: Performed By: #### C MP #### [address] [address] ALP [Catalytic activity/Vol] 77 U/L Normal 33 - 136 [facility] Comment on above: Performed By: #### C MP #### [address] [address] ALT [Catalytic activity/Vol] 17 U/L Normal 7 - 45 [facility] Comment on above: Result Comment: Makenna ents treated with Sulfasalazine may generate falsely decreased results for ALT. Performed By: #### C MP #### [address] [address] Anion gap [Moles/Vol] 13 mmol/L Normal 10 - 20 [facility] Comment on above: Performed By: #### C MP #### [address] [address] AST [Catalytic activity/Vol] 20 U/L Normal 9 - 39 [facility] Comment on above: Result Comment: MILD HEMOLYSIS DETECTED. The result may be falsely elevated due to hemolysis or other interferents. Clinical correlation is recommended. Repeat testing may be considered. Performed By: #### C MP #### [address] [address] Bilirubin [Mass/Vol] 0.3 mg/dL Normal 0.0 - 1.2 [facility] Comment on above: Performed By: #### C MP #### [address] [address] Calcium [Mass/Vol] 9.4 mg/dL Normal 8.6 - 10.3 [facility] Comment on above: Performed By: #### C MP #### [address] [address] Chloride [Moles/Vol] 101 mmol/L Normal 98 - 107 [facility] Comment on above: Performed By: #### C MP #### [address] [address] Creatinine [Mass/Vol] 0.69 mg/dL Normal 0.50 - 1.05 [facility] Comment on above: Performed By: #### C MP #### [address] [address] eGFR FEMALE >90 Normal >90 [facility] Comment on above: Result Comment: CALC ULATIONS OF ESTIMATED GFR ARE PERFORMED USING THE 2020 CKD-EPI STUDY REFIT EQUATION WITHOUT THE RACE VARIABLE FOR THE IDMS-TRACEABLE CREATININE METHODS. https://jasn.asnjournals.org/content/early//ASN.35480 71073 Performed By: #### C MP #### [address] [address] Glucose [Mass/Vol] 88 mg/dL Normal 74 - 99 [facility] Comment on above: Performed By: #### C MP #### [address] [address] HCO3 (Bld) [Moles/Vol] 28 mmol/L Normal 21 - 32 [facility] Comment on above: Performed By: #### C MP #### [address] [place] [address] Potassium [Moles/Vol] 4.7 mmol/L Normal 3.5 - 5.3 [facility] Comment on above: Result Comment: MILD HEMOLYSIS DETECTED. The result may be falsely elevated due to hemolysis or other interferents. Clinical correlation is recommended. Repeat testing may be considered. Performed By: #### C MP #### [address] [address] Protein [Mass/Vol] 7.3 g/dL Normal 6.4 - 8.2 [facility] Comment on above: Performed By: #### C MP #### [address] [address] Sodium [Moles/Vol] 137 mmol/L Normal 136 - 145 [facility] Comment on above: Performed By: #### C MP #### [address] [address] Urea nitrogen [Mass/Vol] 18 mg/dL Normal 6 - 23 [facility] Comment on above: Performed By: #### C MP #### [address] [address] LIPID PANEL (CORONARY RISK 2 )on 07-18-2021 Cholesterol [Mass/Vol] 259 mg/dL High 0 - 199 [facility] Comment on above: Result Comment: . AGE [...] dosing. Performed By: #### L IPID #### [address] [address] Cholesterol in HDL [Mass/Vol] 86.0 mg/dL Normal [facility] Comment on above: Result Comment: . AGE VERY LOW LOW NORMAL HIGH 0-19 Y < 35 < 40 40-45 ---- 20-24 Y ---- < 40 >45 ---- >24 Y ---- < 40 40-60 >60 . Performed By: #### L IPID #### [address] [address] Cholesterol in LDL [Mass/Vol] 156 mg/dL High 0 - 99 [facility] Comment on above: Result Comment: . NEAR BORD AGE DESIRABLE OPTIMAL HIGH HIGH VERY HIGH 0-19 Y 0 - 109 --- 110-129 >/= 130 ---- 20-24 Y 0 - 119 --- 120-159 >/= 160 ---- >24 Y 0 - 99 100-129 130-159 160-189 >/=190 . Performed By: #### L IPID #### [address] [address] Cholesterol in VLDL [Mass/Vol] 17 mg/dL Normal 0 - 40 [facility] Comment on above: Performed By: #### L IPID #### [address] [address] Cholesterol.total/Chol esterol in HDL [Mass ratio] 3.0 {ratio} Normal [facility] Comment on above: Result Comment: REF VALUES DESIRABLE < 3.4 HIGH RISK > 5.0 Performed By: #### L IPID #### [address] [address] Triglyceride [Mass/Vol] 87 mg/dL Normal 0 - 149 [facility] Comment on above: Result Comment: . AGE [...] dosing. Performed By: #### L IPID #### [address] [address] THYROXINE,FREEon 07-18-2021 THYROXINE,FREE 0.68 ng/dL Normal 0.61 - 1.12 [facility] Comment on above: Result Comment: Thyr oxine Free testing is performed using different testing methodology at [facility] than at other [facility]. Direct result comparisons should only be made [...] draw. Performed By: #### T 4FRE #### [address] [address] TSHon 07-18-2021 TSH Qn 3.07 m[IU]/L Normal 0.44 - 3.98 [facility] Comment on above: Result Comment: TSH testing is performed using different testing methodology at [facility] than at [facility]. Direct result comparisons should only be made within the same method. Performed By: #### T SH2 #### [address] [address] CNPMargret 07-06-2021 CNPN Telephone (REYESBGLISBETH) VANI ESCOBAR ([id number]) 1960 F [facility] Date Time Provider Department 07/06/21 KATRIN SANTAMARIA [...] Status:Closed by MERARY AVILES on 07/06/21 Normal [facility] XR FOOT LEFT 3+ VIEWS (STAND PJ)on [...] on SunMay 16, 2021 9:32:22 PM EST [facility] Comment on above: Order Comment: Injur y/Trauma [...] on SunMay 16, 2021 9:32:09 PM EST [facility] Comment on above: Order Comment: Injur y/Trauma [...] the posterior facet of the subtalar joint. [employer] [facility] Radiology Study observation (narrative) [facility] XR Foot Right 3+ Views (Candido dard)on 05-16-2021 No fractures or dislocations noted. Joint space narrowing noted across the midfoot tarsometatarsals joints especially over the second and third tarsometatarsal joints. Large calcaneal enthesophyte noted. Sclerosis noted to the posterior facet of the subtalar joint. [employer] [facility] Radiology Study observation (narrative) [facility] 02-02-2021 [facility] HNO ID: [id number] Author: Mammography Coordinator Service: ? Author Type: Physician Type: Letter Filed: 02/03/2021 11:33 PM Note Text: [address] [address] February 02, 2021 PID: [id number] Vani Escobar [address] [place] [address] Dear Ms. Escobar, We are pleased to [...] report will be kept on file at [facility] as part of your permanent medical record and are available for your continuing care. Thank you for allowing us to help in meeting your health care needs. Sincerely, Dr. Zayas Interpreting Radiologist [facility] (Normal over 40) Normal [facility] KAYLAH SCREENING W TOMOon 11-27 KAYLAH SCREENING W IVORY * * *Final Report* * * DATE OF EXAM: Nov 27 2018 11:10AM RAVI 0582 - KAYLAH SCREENING W IVORY / PROCEDURE REASON: z12.31 screening * * * * Physician Interpretation * * * * #[id number] - KAYLAH SCREENING W IVORY BILATERAL DIGITAL SCREENING MAMMOGRAM [...] dated: 11/07/2017 mammogram and 10/19/2016 mammogram - [facility]. The tissue of both breasts is predominantly fatty. No significant masses, calcifications, or other findings are seen in either breast. There has been no significant interval change. IMPRESSION: NEGATIVE There is no mammographic evidence of malignancy. A 1 year screening mammogram is recommended. Jp mcgrath/rosemarie:11/27/2018 15:04:08 Glove Cutter(s): RT Amor(R)(M), [facility] letter sent: Normal over 40 Mammogram [...] Health, Family Medicine, and Medical/Surgical Oncology, the [facility] has carefully reviewed the data and [...] their providers when to stop screening mammograms. Landscape Specialist: Rosemarie Transcribe Date/Time: Nov 27 2018 10:55A Dictated by : JP MARRERO MD This examination was interpreted and the report reviewed and electronically signed by: JP MARRERO MD on Nov 27 2018 3:04PM EST [id number] [facility] PROGRESSon 11-27-2018 PROGRESS HNO ID: [id number] Author: Marcial Chinchilla (Rt) Service: Radiology Author Type: Wind Turbine Controls Engineer Type: Progress Notes Filed: 11/27/2018 11:10 AM [...] RT Amor November 27, 2018 11:10 AM [facility] HPV High Riskon 10-22-2018 HPV High Risk SEE BELOW [facility] Comment on above: Result Comment: HPV HighRisk Type 16 SEE BELOW Negative for HPV DNA high risk type 16 by PCR. HPV HighRisk Type 18 SEE BELOW Negative for HPV DNA high risk type 18 by PCR. HPV HighRisk Other SEE BELOW Negative for HPV DNA high risk types: 31,33,35,39,45,51,52,56,58,59,66,68 by PCR. This test was developed and its performance characteristics determined by [facility]'s [facility] Pathology and Laboratory Medicine [place] ([facility]). It has not been cleared or approved by the FDA. [facility] is regulated under CLIA as qualified to perform high-complexity testing. This test is used for clinical purposes. It should not be regarded as investigational or for research. Performing Laboratory: [facility] [employer] [address] [place] [address] Performed By: #### H PVRX #### [address] [address] HPV High Riskon 10-21-2018 Cytology [facility] Comment on above: Performed By: #### H PVRX #### [address] [address] Pap,Cyto Gynon 10-18-2018 Pap,Cyto Water Supply Technician Test performed at [place] [address] NAME: VANI ESCOBAR REQUESTING: MADDI DONIS MD SPECIMEN: TP CERVICAL/ENDOCERVICAL HPV REGARDLESS Relevant History: Menopause: Y, SPECIMEN ADEQUACY SATISFACTORY FOR EVALUATION. ENDOCERVICAL/TRANSFORM ATION ZONE COMPONENTS ABSENT. INTERPRETATION/RESULT NEGATIVE FOR INTRAEPITHELIAL LESION OR MALIGNANCY. ANCILLARY TESTING Negative for HPV DNA high risk type 16 by PCR. Please see additional report from [facility]. Negative for HPV DNA high risk type 18 by PCR. Please see additional report from [facility]. Negative for HPV DNA high risk types: 31, 33, 35, 39, 45, 51, 52, 56, 58, 59, 66, 68 by PCR. Please see additional report from [facility]. Electronically signed: 11/18/2018 Screened by: ARIN [...] 18, 2018 Page 1 of 1 Normal [facility] Comment on above: Performed By: #### C YTOP #### [place] [address] Auto Diffon 01-05-2018 Basophils Auto #/vol (Bld) 0.0 E3/mcL Normal 0.0-0.2 [facility] Comment on above: Order Comment: Order Added by Discern Expert. Performed By: #### 2 [id number] ####KAMILLA [address] [place] [address] Basophils/100 WBC Auto (Bld) 0.7 % Normal 0.0-2.0 [facility] Comment on above: Order Comment: Order Added by Discern Expert. Performed By: #### 2 059075 ####KAMILLA [address] [place] [address] Eos Absolute 0.1 E3/mcL Normal 0.0-0.7 [facility] Comment on above: Order Comment: Order Added by Discern Expert. Performed By: #### 2 [id number] ####K[address]ILLA [address] [place] [address] Eosinophils/100 WBC Auto (Bld) 1.9 % Normal 0.0-11.0 [facility] Comment on above: Order Comment: Order Added by Discern Expert. Performed By: #### 2 540222 ####K[address]ILLA [address] [place] [address] Lymphocytes Auto #/vol (Bld) 1.5 E3/mcL Normal 1.2-3.4 [facility] Comment on above: Order Comment: Order Added by Discern Expert. Performed By: #### 2 879252 ####K[address]ILLA [address] [place] [address] Lymphocytes/100 WBC Auto (Bld) 25.6 % Normal 20.0-55.0 [facility] Comment on above: Order Comment: Order Added by Discern Expert. Performed By: #### 2 [id number] ####KAMILLA [address] [place] [address] [place] Absolute 0.4 E3/mcL Normal 0.0-0.7 [facility] Comment on above: Order Comment: Order Added by Discern Expert. Performed By: #### 2 757800 ####KAMILLA [address] [place] [address] Monocytes/100 WBC Auto (Bld) 6.7 % Normal 0.0-10.0 [facility] Comment on above: Order Comment: Order Added by Discern Expert. Performed By: #### 2 [id number] ####KAMILLA [address]yy[address] [place] [address] Neutro Absolute 3.9 E3/mcL Normal 1.4-6.5 [facility] Comment on above: Order Comment: Order Added by Discern Expert. Performed By: #### 2 [id number] ####KAMILLA [address]uy[address] [place] [address] Neutro Auto 65.1 % Normal 37.0-75.0 [facility] Comment on above: Order Comment: Order Added by Discern Expert. Performed By: #### 2 712414 ####KAMILLA [address] [place] [address] BMPon 01-05-2018 Creatinine mass conc 0.8 mg/dL Normal 0.6-1.3 [facility] Comment on above: Performed By: #### 2 695932 ####KAMILLA [address] [place] [address] Urea nitrogen mass conc 15 mg/dL Normal 7-18 [facility] Comment on above: Performed By: #### 2 467494 ####KAMILLA [address]vlm[address] [place] [address] Urea nitrogen/Creatinine mass ratio 18.8 ratio Normal 5.4-30.0 [facility] Comment on above: Performed By: #### 2 928118 ####KAMILLA [address]ir[address] [place] [address] Calcium mass conc 8.7 mg/dL Normal 8.4-10.2 [facility] Comment on above: Performed By: #### 2 728646 ####KAMILLA [address]cfDbqu[address] [place] [address] Chloride molar conc 103 mmol/L Normal 98-107 [facility] Comment on above: Performed By: #### 2 320408 ####KAMILLA XbiPmbj[address] [place] [address] CO2 molar conc 26.4 mmol/L Normal 24.0-30.0 [facility] Comment on above: Performed By: #### 2 758813 ####KAMILLA [address] [place] [address] Glucose mass conc 116 mg/dL High 70-99 [facility] Comment on above: Performed By: #### 2 200426 ####KAMILLA [address]ps[address]zoz[address] [place] [address] Potassium molar conc 4.0 mmol/L Normal 3.5-5.1 [facility] Comment on above: Performed By: #### 2 036187 ####KAMILLA [address]avFsjs[address] [place] [address] Sodium molar conc 141 mmol/L Normal 136-145 [facility] Comment on above: Performed By: #### 2 960264 ####KAMILLA [address]zji[address] [place] [id number] CBC w/ Auto Diffon 8 Erythrocyte distribution width Auto Ratio (RBC) 13.7 % Normal 11.5-14.5 [facility] Comment on above: Performed By: #### 2 004674 ####KAMILLA MfnBpop[address]06 [place] [id number] Hematocrit Auto Volume Fraction (Bld) 35.1 % Low 36.0-48.0 [facility] Comment on above: Performed By: #### 2 046166 ####KAMILLA [address]jso[address] [place] [address] Hemoglobin mass conc (Bld) 11.8 g/dL Low 12.0-16.0 [facility] Comment on above: Performed By: #### 2 833092 ####KAMILLAJannette HackettVbbIohe4[address] [place] [address] MCH Auto Entitic mass (RBC) 31.9 pg High 27.0-31.0 [facility] Comment on above: Performed By: #### 2 250771 ####KAMILLA DvyPsgx3316 [place] [address] MCHC Auto mass conc (RBC) 33.6 g/dL Normal 33.0-37.0 [facility] Comment on above: Performed By: #### 2 862363 ####KAMILLAJannette HackettAdfAfmd[address] [place] [address] MCV Auto Entitic volume (RBC) 95.0 fL Normal 78.0-100.0 [facility] Comment on above: Performed By: #### 2 711787 ####KAMILLA [address]vYwkb[address] [place] [address] Platelet mean volume Auto Entitic volume (Bld) 9.4 fL Normal 7.4-11.0 [facility] Comment on above: Performed By: #### 2 [id number] ####KAMILLA [address]mgUqeg[address] [place] [address] Platelets Auto #/vol (Bld) 191 E3/mcL Normal 130-400 [facility] Comment on above: Performed By: #### 2 908077 ####KAMILLA InqTioa[address] [place] [address] RBC Auto #/vol (Bld) 3.70 E6/mcL Low 3.90-5.40 [facility] Comment on above: Performed By: #### 2 436248 ####KAMILLA CyjKczc[address] [place] [address] WBC Auto #/vol (Bld) 6.0 E3/mcL Normal 3.6-11.0 [facility] Comment on above: Performed By: #### 2 [id number] ####KAMILLA PyvHwld[address] [place] [address] CT Head or Brain w/o Contras ton 01-05-2018 CT Head or Brain w/o Contrast Exam Date/Time:01/04/2018 22:47 EDTReason for Exam:StrokeReportSTUDY :CT Head or Brain w/o Contrast; 01/04/2018 10:47 pmINDICATION:Stroke.CO MPARISON:None.ACCESS N NUMBER(S):[id number] CLINICIAN:Siobhan Blair:Ruben villegas noncontrast CT images of the head.FINDINGS:BRAIN PARENCHYMA: [...] REPORT Dictated: 01/04/2018 11:46 pm Kalpana Hoover MD ESigned (Electronic Signature): 01/04/2018 11:46 pmSigned by: Kalpana Hoover MD Technologist: EMMA [facility] eGFRon 01-05-2018 eGFR AA >60 [facility] Comment on above: Order Comment: Order added by Discern Expert. Performed By: #### 1 [id number] ####KAMILLA [address]roLdnw[address] [place] [address] GFR/1.73 sq M predicted among non-blacks MDRD vol rate/area (S/P/Bld) mL/min/{1.73_m2} Normal [facility] Comment on above: Order Comment: Order added by Discern Expert. Performed By: #### 1 [id number] ####KAMILLA XwuPqyh[address] [place] [address] Vital Signs Date Time Vital Sign Value Performing Clinician Facility 11-10-2024 12:09-0400 Diastolic blood pressure 72 mm[Hg] Sahil Jena LEVEL VIAL INSPECTOR-C Work Phone: [facility] 11-10-2024 12:09-0400 Systolic blood pressure 142 mm[Hg] Sahil Jena LEVEL VIAL INSPECTOR-C Work Phone: [facility] 11-10-2024 11:33-0400 Body height 157.48 cm Sahil Jena LEVEL VIAL INSPECTOR-C Work Phone: [facility] 11-10-2024 11:33-0400 Body mass index (BMI) [Ratio] 54.6 kg/m2 Sahil Jena LEVEL VIAL INSPECTOR-C Work Phone: [facility] 11-10-2024 11:33-0400 Body temperature 98.4 [degF] Sahil Jena LEVEL VIAL INSPECTOR-C Work Phone: [facility] 11-10-2024 11:33-0400 Body weight 135.45 kg Sahil Jena LEVEL VIAL INSPECTOR-C Work Phone: [facility] 11-10-2024 11:33-0400 Heart rate 78 /min Donaldson Jena LEVEL VIAL INSPECTOR-C Work Phone: [facility] 11-10-2024 11:33-0400 Respiratory rate 17 /min Sahil Jena LEVEL VIAL INSPECTOR-C Work Phone: [facility] 11-10-2024 11:33-0400 SaO2% (BldA) [Mass fraction] 94 % Sahil Jena LEVEL VIAL INSPECTOR-C Work Phone: [facility] 05-28-2024 13:29-0500 Body height 157.5 cm [facility] 05-28-2024 13:29-0500 Body mass index (BMI) [Ratio] 53.04 kg/m2 [facility] 05-28-2024 13:29-0500 Body weight 131.54 kg [facility] 03-24-2023 00:38-0500 Body height 157.5 cm Trent Domínguez MD Work Phone: 1(166)[phone] [place] [address] 03-24-2023 00:38-0500 Body mass index (BMI) [Ratio] 53.04 kg/m2 Trent Domínguez MD Work Phone: [facility] 03-24-2023 00:38-0500 Body temperature 98.6 [degF] Trent Domínguez MD Work Phone: [facility] 03-24-2023 00:38-0500 Body weight 131.54 kg Trent Domínguez MD Work Phone: [facility] 03-24-2023 00:38-0500 Diastolic blood pressure 92 mm[Hg] Trent Domínguez MD Work Phone: [facility] 03-24-2023 00:38-0500 Heart rate 82 /min Trent Domínguez MD Work Phone: [facility] 03-24-2023 00:38-0500 Respiratory rate 16 /min Trent Domínguez MD Work Phone: [facility] 03-24-2023 00:38-0500 SaO2% (BldA) [Mass fraction] 97 % Trent Domínguez MD Work Phone: [facility] 03-24-2023 00:38-0500 Systolic blood pressure 186 mm[Hg] Trent Domínguez MD Work Phone: [facility] 11-14-2022 10:49-0400 Body height 157.[address] Don Medrano [facility] 11-14-2022 10:49-0400 Body mass index (BMI) [Ratio] 53.8 kg/m2 Dr. Ochoa [facility] 11-14-2022 10:49-0400 Body temperature 97.8 [degF] Dr. Don Hernandez [facility] 11-14-2022 10:49-0400 Body weight 133.[address] Don Hernandez [facility] 11-14-2022 10:49-0400 Diastolic blood pressure 80 mm[Hg] Dr. Don Hernandez [facility] 11-14-2022 10:49-0400 Heart rate 81 /min Dr. Don Hernandez [facility] 11-14-2022 10:49-0400 Respiratory rate 17 /min Dr. Don Hernandez [facility] 11-14-2022 10:49-0400 SaO2% (BldA) [Mass fraction] 96 % Dr. Don Hernandez [facility] 11-14-2022 10:49-0400 Systolic blood pressure 138 mm[Hg] Dr. Don Hernandez [facility] 05-16-2022 13:08-0500 Body height 157.[address] Don Hernandez Work Phone: 7(324)[phone] [place] [address] 05-16-2022 13:08-0500 Body mass index (BMI) [Ratio] 53.8 kg/m2 Dr. Don Hernandez Work Phone: 2(440)[phone] [place] [address] 05-16-2022 13:08-0500 Body temperature 97.5 [degF] Dr. Don Hernandez Work Phone: 1(197)[phone] [place] [address] 05-16-2022 13:08-0500 Body weight 133.[address] Don Hernandez Work Phone: [facility] 05-16-2022 13:08-0500 Diastolic blood pressure 78 mm[Hg] Dr. Don Hernandez Work Phone: 6(868)[phone] [place] [address] 05-16-2022 13:08-0500 Heart rate 64 /min Dr. Don Hernandez Work Phone: [facility] 05-16-2022 13:08-0500 Respiratory rate 17 /min Dr. Don Hernandez Work Phone: [facility] 05-16-2022 13:08-0500 SaO2% (BldA) [Mass fraction] 99 % Dr. Don Hernandez Work Phone: [facility] 05-16-2022 13:08-0500 Systolic blood pressure 124 mm[Hg] Dr. Don Hernandez Work Phone: [facility] 06-20-2021 15:34-0400 Diastolic blood pressure 94 mm[Hg] Charly Holliday DPM Work Phone: [facility] 06-20-2021 15:34-0400 Heart rate 69 /min Charly Eric DPM Work Phone: [facility] 06-20-2021 15:34-0400 Systolic blood pressure 162 mm[Hg] Charly Holliday DPM Work Phone: [facility] 06-20-2021 15:27-0400 Body temperature 97.7 [degF] Charly Eric DPM Work Phone: [facility] 05-16-2021 15:10-0500 Body temperature 98.2 [degF] Charly Holliday DPM Work Phone: [facility] 05-16-2021 15:10-0500 Diastolic blood pressure 85 mm[Hg] Charly Holliday DPM Work Phone: [facility] 05-16-2021 15:10-0500 Heart rate 70 /min Charly Holliday DPM Work Phone: [facility] 05-16-2021 15:10-0500 Systolic blood pressure 145 mm[Hg] Charly Eric DPM Work Phone: [facility] 11-15-2018 17:46-0400 BMI (Body Mass Index) 49.38 kg/m2 Kate [facility] Work Phone: 11-15-2018 17:46-0400 Body Temperature 98.1 [degF] Kate Yared [facility] Work Phone: 11-15-2018 17:46-0400 Body [...] Date Encounter Type Care Provider Facility Start: 11-28-2024 End: 11-28-2024 Emergency department patient visit [facility] Start: 11-10-2024 End: 11-10-2024 ambulatory Sahil Bella LEVEL VIAL INSPECTOR-C Work Phone: [facility] Start: 11-10-2024 End: 11-10-[address] Deon Mendoza MD [facility] Work Phone: Start: 11-10-2024 End: 11-10-[address] Deon Mendoza MD -[facility] Work Phone: Start: 11-10-2024 End: 11-10-2024 ambulatory Sahilwolf Bella LEVEL VIAL INSPECTOR-C Work Phone: -[facility] Start: 11-10-2024 End: 11-10-2024 ambulatory Deon Mendoza Facility:[facility] Start: 06-18-2024 End: 06-18-2024 ambulatory [facility] Facility[facility] Start: 05-28-2024 End: 05-28-2024 Subsequent hospital visit by physician [facility] Comment on above: Encounter for screen ing mammogram for malignant neoplasm of breast Start: 05-28-2024 End: 05-28-2024 ambulatory [facility] Start: 05-26-2024 End: 05-26-2024 ambulatory Deon Kelly Facility:[facility] Start: 01-09-2024 End: 01-09-2024 ambulatory [facility] Facility:[facility] Start: 12-28-2023 End: 12-28-2023 ambulatory [facility] Start: 12-26-2023 ambulatory Adairisi Gabrieley [facility] Start: 12-26-2023 End: 12-26-2023 ambulatory [facility] Facility:[facility] Start: 12-03-2023 End: 12-03-2023 ambulatory [facility] Facility:[facility] Start: 03-24-2023 End: 03-24-2023 Emergency department patient visit Trent Domínguez MD Work Phone: [facility] Comment on above: Shortness of breath (Primary Dx); Hypertension, unspecified type Start: 03-08-2023 End: 03-08-2023 Subsequent hospital visit by physician [facility] Comment on above: Encounter for screen ing mammogram for malignant neoplasm of breast Start: 02-01-2023 End: 02-01-[address] Don David [facility] Work Phone: Start: 02-01-2023 End: 02-01-[address] Don Hernandez [facility] Work Phone: Start: 01-12-2023 End: 01-12-2023 ambulatory DON HERNANDEZ [facility] Start: 01-12-2023 End: 01-12-2023 Encounter for general adult medical examination with abnormal findings DON HERNANDEZ [facility] Start: 11-14-2022 End: 11-14-2022 Patient encounter procedure Dr. Don Hernandez [facility] Work Phone: Start: 06-06-2022 End: 06-06-[address] Don Hernandez Work Phone: [facility] Work Phone: Start: 06-06-2022 End: 06-06-[address] Don Hernandez Work Phone: [facility] Start: 05-16-2022 End: 05-16-[address] Don Hernandez Work Phone: [facility] Start: 04-18-2022 Telephone encounter Katrin Santamaria MD Work Phone: [facility] Gynecology Comment on above: Refill Request Start: 03-13-2022 Chart Update Don Hernandez Work Phone: [address] Work Phone: Start: 03-07-[address] Don Hernandez Facility:[id number] Start: 11-15-[address] Gena Davis ity:[id number] Start: 11-11-2021 Encounter for gynecological examination (general) (routine) without abnormal findings Dr. GENA BUSH [facility] Start: 11-11-2021 Encounter for gynecological examination (general) (routine) without abnormal findings Don Hernandez Facility:[facility] Start: 11-11-2021 ambulatory Don Hernandez Fac ility:[facility] Start: 07-18-2021 Refill Katrin julien MD Work Phone: [facility] Obstetrics & Gynecology Comment on above: Refill Request (Estr adiol vag cream w/appl 42.5 gm 0.01%) Start: 07-06-2021 Telephone encounter Katrin Santamaria MD Work Phone: [facility] Obstetrics & Gynecology Comment on above: Refill Request (Estr adiol vaginal cream 42.5 gm ) Start: 06-20-2021 End: 06-20-2021 ambulatory CHARLY SABRY ERIC [facility] Start: 06-20-2021 End: 06-20-2021 Office outpatient visit 15 minutes Charly Sabry Holliday DPM Work Phone: [facility] Comment on above: Primary osteoarthrit is of left foot (Primary Dx); Primary osteoarthritis of right foot; Bilateral foot pain Start: 05-16-2021 End: 05-20-2021 ambulatory CHARLY SABRY ERIC [facility] Start: 05-16-2021 End: 05-16-2021 Office outpatient new 30 minutes Charly Sabry Eric DPM Work Phone: [facility] Comment on above: Primary osteoarthrit is of left foot (Primary Dx); Primary osteoarthritis of right foot; Bilateral foot pain Start: 02-26-2020 End: 03-01-2020 Patient encounter procedure [facility] Start: 02-26-2020 End: 02-26-2020 Patient encounter procedure Emre Santos Jerry Work Phone: [facility] Comment on above: Radiculopathy, lumba r region (Primary Dx) Start: 02-24-2020 End: 02-28-2020 Patient encounter procedure [facility] Start: 02-24-2020 End: 02-24-2020 Patient encounter procedure Emre Santos Jerry Work Phone: [facility] Comment on above: Radiculopathy, lumba r region (Primary Dx) Start: 02-17-2020 End: 02-21-2020 Patient encounter procedure [facility] Start: 02-17-2020 End: 02-17-2020 Patient encounter procedure Emre Ramirez Work Phone: [facility] Comment on above: Radiculopathy, lumba r region (Primary Dx) Start: 02-05-2020 End: 02-09-2020 Patient encounter procedure [facility] Start: 02-05-2020 End: 02-05-2020 Patient encounter procedure Emre Ramirez Work Phone: [facility] Comment on above: Radiculopathy, lumba r region (Primary Dx) Start: 02-03-2020 End: 02-07-2020 Patient encounter procedure [facility] Start: 02-03-2020 End: 02-03-2020 Patient encounter procedure Emre Ramirez Work Phone: [facility] Comment on above: Radiculopathy, lumba r region; Sciatica of right side Start: 01-04-2018 End: 01-05-2018 Emergency department patient visit [facility] Facility:[facility] Encounter for gynecological examination (general) (routine) without abnormal findings Don Hernandez Work Phone: [facility] Work Phone: Comment on above: 07/2020; Patient encounter status Don Hernandez Work Phone: [facility] Work Phone: Procedures Date Procedure Procedure Detail Performing Clinician Start: 03-08-2023 End: 03-08-2023 Screening digital breast tomosynthesis bi Sahil Bella PIECE MEAT TRIMMER-LOTTERY MANAGER Work Phone: Start: 02-01-2023 MRI of lumbar spine Dr. Don Hernandez Start: 01-12-2023 Cyanocobalamin vitamin b-12 SAHIL BELLA Start: 01-12-2023 CARBAMAZEPINE SAHIL FORD Start: 01-12-2023 CBC panel - Blood by Automated count SAHIL BELLA Start: 01-12-2023 Comprehensive metabo lic 2000 panel - Serum or Plasma SAHIL JENA Start: 01-12-2023 Lipid panel [place]HIL [place] Start: 01-12-2023 Lipid 1996 panel - S israel or Plasma [facility] Start: 06-06-2022 Dual energy X-ray absorptiometry Dr. Don Hernandez Work Phone: Start: 03-07-2022 Mammography [facility] Start: 11-11-2021 [...] ligation Sco gab Hernandez Work Phone: Cholecystectomy Don hummel Work Phone: Elbow joint operations Don Hernandez Work Phone: Extraction of wisdom tooth S garth Hernandez Work Phone: Plan of Treatment Date Care Activity Detail Author Start: 01-13-2028 Lipid panel Lipid Panel [facility] Start: 12-27-2026 Diabetes mellitus screening Diabetes Screening [facility] Start: 12-27-2024 Hemoglobin A1c measurement Diabetes: Hemoglobin A1C [facility] Start: 11-11-2024 Screening for malign ant neoplasm of cervix [facility] Start: 09-01-2024 Screening for malign ant neoplasm of colon [facility] Start: 03-08-2024 Screening for malign ant neoplasm of breast Mammogram [facility] Start: 12-09-2023 COVID-19 Vaccine ( season) COVID-19 Vaccine ( season) [facility] Start: 10-19-2023 HPV TESTING HPV TESTING [facility] Start: 10-19-2023 PAP TESTING PAP TESTING [facility] Start: 03-07-2023 Screening for malign ant neoplasm of breast Mammogram [facility] Start: 04-09-2022 DEPRESSION ASSESSMENT DEPRESSION ASS ESSMENT [facility] Start: 02-01-2022 Mammography MAMMOGRAM [facility] Start: 12-08-2021 Influenza vaccination [facility] Start: 08-22-2021 End: 08-22-2021 Patient encounter procedure 08/22/2021 Office Visit Podiatry Charly Reyes, SAMY [address] [place] [address] [facility] Start: 06-13-2021 End: 06-13-2021 Patient encounter procedure 06/13/2021 Office Visit Podiatry Charly Reyes, SAMY [address] [place] [address] [facility] Start: 05-20-2021 COVID-19 Vaccine (2 - Pfizer series) COVID-19 Vaccine (2 - Pfizer series) [facility] Start: 12-15-2020 COVID-19 VACCINE (3 - Booster for Pfizer series) COVID-19 VACCINE (3 - Booster for Pfizer series) [facility] Start: 12-08-2020 Influenza vaccination INFLUENZA (#1) [facility] Start: 09-09-2020 COVID-19 VACCINE (3 - Booster for Pfizer series) COVID-19 VACCINE (3 - Booster for Pfizer series) [facility] Start: 03-05-2020 End: 03-05-2020 Treatment [facility] Start: 03-02-2020 End: 03-02-2020 Treatment 03/02/2020 Treatment Rehabilitation Emre Ramirez, [address] [place] [address] Jannette Fluker, [place] [address] Warnes, Katharine, [facility] Start: 02-26-2020 End: 02-26-2020 Treatment 02/26/2020 Treatment Rehabilitation Emre Ramirez, DO [address] [place] [address] [phone] Sherron Faye, PT [facility] Start: 02-24-2020 End: 02-24-2020 Treatment 02/24/2020 Treatment Rehabilitation Emre Ramirez, DO [address] [place] [place] [address] [phone] Katharine Lopes [facility] Start: 02-19-2020 End: 02-19-2020 Treatment 02/19/2020 Treatment Rehabilitation Emre Ramirez, DO [address] [place] [place] [address] [phone] Dania Abdul [facility] Start: 02-17-2020 End: 02-17-2020 Treatment 02/17/2020 Treatment Rehabilitation Emre Ramirez, DO [address] [place] [address] [phone] Dania Abdul [facility] Start: 02-13-2020 End: 02-13-2020 Treatment 02/13/2020 Treatment Rehabilitation Emre Ramirez DO [address] [place] [address] [phone] Dania Abdul [facility] Start: 02-05-2020 End: 02-05-2020 Treatment 02/05/2020 Treatment Rehabilitation Emre Ramirez, [address] [place] [address] [phone] Linda No, [facility] Start: 12-09-2019 Influenza vaccinatio n given Sequential Influenza Vaccine (#1) [facility] Start: 2019 RSV High Risk: (Elde rly (60+) or Population) (1 - Risk 60-74 years 1-dose series) RSV High Risk: (Elderly (60+) or Population) (1 - Risk 60-74 years 1-dose series) [facility] Start: 01-25-2019 DIABETES SCREEN DIABETES SCREEN [facility] Start: 12-22-2018 Tetanus vaccination Tetanus: Every 1 0yrs [facility] Start: 11-07-2018 Screening for malign ant neoplasm of breast Mammogram [facility] Start: 05-21-2017 LIPID SCREEN LIPID SCREEN [facility] Start: 10-29-2015 Adult depression screening assessment DEPRESSION SCREENING [facility] Start: 2009 Administration of he rpes zoster vaccine Zoster Vaccines (1 of 2) [facility] Start: 2009 Screening for malign ant neoplasm of colon [facility] Start: 2009 SHINGRIX VACCINE (1 of 2) SHINGRIX VACCINE (1 of 2) [facility] Start: 12-23-2008 DTaP/Tdap/Td Vaccine s (1 - Tdap) DTaP/Tdap/Td Vaccines (1 - Tdap) [facility] Start: 12-23-2008 Urine microalbumin profile DTAP,TDAP,TD (1 - Tdap) [facility] Start: 2004 COLOGUARD (FIT-DNA) COLOGUARD (FIT-D NA) [facility] Start: 2004 Colonoscopy COLONOSCOPY [facility] Start: 2004 COLORECTAL CANCER SCREENING COLORECTAL CANCER SCREENING [facility] Start: [address] COLONOGRAPHY [facility] Start: 2004 FECAL OCCULT BLOOD FECAL OCCULT BLOO D [facility] Start: 2004 SIGMOIDOSCOPY SIGMOIDOSCOPY [facility] Start: 01-27-2003 PNEUMOCOCCAL (2 - PCV) PNEUMOCOCCAL (2 - PCV) [facility] Start: 01-27-2003 Pneumococcal vaccination Pneum ococcal Vaccine (2 of 2 - PCV) [facility] Start: 1980 Screening for malign ant neoplasm of cervix HPV/Cotest [facility] Start: 1977 ANNUAL PCP TEAM SHOE SHINER LILLIE DISEASE VISIT ANNUAL PCP TEAM CHRONIC DISEASE VISIT [facility] Start: 1977 Diabetes mellitus screening Diabetes Screening [facility] Start: 1977 Hepatitis C antibody , confirmatory test Hepatitis C Screening [facility] Start: 1977 Hepatitis C screening Hepatitis C [facility] Start: 1977 HEPATITIS C SCREENING HEPATITIS C SC [facility] Start: 1977 HIV SCREENING HIV SCREENING [facility] Start: 1977 SPIROMETRY SPIROMETRY [facility] Start: 1974 HIV screening HIV Screening [facility] Start: 1971 Adolescent depressio n screening assessment Depression Screening (PHQ9) [facility] Start: 1971 Depression screening using PHQ-9 (Patient Health Questionnaire 9) score Depression Screening (PHQ-2/9) [facility] Start: 1962 History and physical examination, annual for health maintenance Wellness Visit [facility] Start: 1960 MMR Vaccines (1 of 1 - Standard series) MMR Vaccines (1 of 1 - Standard series) [facility] Start: 1959 HIV screening HIV Screening [facility] Start: 1959 Screening for malign ant neoplasm of cervix Pap Smear [facility] Start: 1959 Screening for malign ant neoplasm of colon [facility] Start: 1959 Screening mammography [facility]ammogram [facility] Start: 1959 Tetanus vaccination Tetanus: Every 1 0yrs [facility] Start: 1959 Yearly Adult Physical Yearly Adult P [facility] carBAMazepine [Mass/volume] in Serum or Plasma [facility] carBAMazepine [Mass/volume] in Serum or Plasma [facility] carBAMazepine [Mass/volume] in Serum or Plasma [facility] Complete blood count [facility] Complete blood count [facility] Complete blood count [facility] Comprehensive metabo lic 2000 panel - Serum or Plasma [facility] End: 03-08-2023 DBT Breast - bilateral [facility] Service Area Work Phone: Comment on above: Once for 1 Occurrenc es starting 03/08/2023 until 03/08/2023 End: 05-28-2024 DBT Breast - bilateral [facility] Service Area Comment on above: Once for 1 Occurrenc es starting 05/28/2024 until 05/28/2024 [facility] Immunizations Immunization Date Immunization Notes Care Provider Manish cuello 01-22-2018 influenza, injectabl e, quadrivalent, preservative free Katrin Santamaria MD Work Phone: [facility] Work Phone: 01-04-2017 influenza, injectabl e, quadrivalent, contains preservative Katrin Santamaria MD Work Phone: [facility] Work Phone: 01-04-2017 influenza, injectabl e, quadrivalent, preservative free Katrin Santamaria MD Work Phone: [facility] Work Phone: 02-17-2016 influenza, injectabl e, quadrivalent, contains preservative Katrin Santamaria MD Work Phone: [facility] Work Phone: 01-29-2015 influenza, seasonal, injectable, preservative free Katrin Santamaria MD Work Phone: [facility] Work Phone: 02-11-2013 influenza, seasonal, injectable Katrin Santamaria MD Work Phone: [facility] Work Phone: 02-06-2012 influenza, seasonal, injectable Katrin Santamaria MD Work Phone: [facility] Work Phone: 01-27-2011 influenza, seasonal, injectable Katrin Santamaria MD Work Phone: [facility] Work Phone: 01-17-2010 influenza, seasonal, injectable Katrin Santamaria MD Work Phone: [facility] Work Phone: 03-22-2009 influenza, seasonal, injectable Katrin Santamaria MD Work Phone: [facility] Work Phone: 12-22-2008 tetanus and diphther ia toxoids, adsorbed, preservative free, for adult use (5 Lf of tetanus toxoid and 2 Lf of diphtheria toxoid) Katrin Santamaria MD Work Phone: [facility] Work Phone: 02-08-2006 influenza, seasonal, injectable Katrin Santamaria MD Work Phone: [facility] Work Phone: 01-27-2002 pneumococcal polysaccharide vaccine, 23 valent Katrin Santamaria MD Work Phone: [facility] Work Phone: Payers Date Payer Category Payer Medicare [id number] 2024 Medicare [id number] 2023 Self-pay [id number] 2013 Blue Cross Blue Wei [facility] [id number] 2013 Unknown [id number] 2013 Unknown 2013 Unknown [id number] [id number] 1959 Unknown [id number] 2.16.840.1.311565.3.57 9.2 1959 Unknown [id number] 2.16.840.1.959029.3.57 9.2 1959 Unknown [id number] 2.16.840.1.748073.3.57 9.2.903 1959 Unknown [id number] 2.16.840.1.220359.3.57 9.2.903 1959 Unknown [id number] 2.16.840.1.686790.3.57 9.2.903 1959 Unknown [id number] 2.16.840.1.488725.3.57 9.2.903 1959 Unknown [id number] 2.16.840.1.034919.3.57 9.2.903 1959 Unknown [id number] 2.16.840.1.477663.3.57 9.2.903 1959 Unknown [id number] 2.16.840.1.068630.3.57 9.2.903 1959 Unknown [id number] 2.16.840.1.639019.3.57 9.2.356 1959 Unknown [id number] 2.16.840.1.297013.3.57 9.2.356 1959 Unknown [id number] 2.16.840.1.972716.3.57 9.2.1069 1959 Unknown [id number] 2.16.840.1.690947.3.57 9.2.1069 1959 Unknown [id number] 2.16.840.1.795788.3.57 9.2.1245 1959 Unknown [id number] 2.16.840.1.004499.3.57 9.2.1245 1959 Unknown [id number] 2.16.840.1.253165.3.57 9.2.1243 1959 Unknown [id number] 2.16.840.1.170553.3.57 9.2.902 Unknown [id number] 2.16.840.1.980393.3.57 9.2.462 Unknown [id number] 2.16.840.1.102799.3.57 9.2.462 Unknown [id number] 2.16.840.1.567609.3.57 9.2.462 Unknown [id number] 2.16.840.1.896238.3.57 9.2.462 Unknown [id number] 2.16.840.1.790732.3.57 9.2.462 Unknown [id number] 2.16.840.1.704741.3.57 9.2.462 Unknown [id number] 2.16.840.1.044210.3.57 9.2.462 Unknown [id number] 2.16.840.1.477138.3.57 9.2.462 Social History Date Type Detail Facility Assertion Unknown if ever smoked [facility] Work Phone: Start: 02-03-2020 End: 11-14-2022 Tobacco smoking status UTIS Unknown if ever smoked [facility] Start: 1960 Sex Assigned At Not on file [facility] Start: 06-10-2021 End: 05-28-2024 Exposure to SARS-CoV-2 (event) Not sure [facility] Start: 05-16-2021 End: 12-12-2023 Tobacco smoking status NHIS Ex-smoker [facility] Start: 04-26-2012 End: 05-16-2021 Tobacco use and exposure Smokeless tobacco non-user [facility] Start: 05-16-2021 End: 06-20-2021 Alcohol intake Ex-drinker (finding) [facility] Start: 04-26-2012 Tobacco smoking stat us UTIS Never smoked tobacco [facility] Start: 02-13-2020 Alcohol intake Current drinke r of alcohol (finding) [facility] Start: 04-26-2012 History SDOH Alcohol Comment occ [facility] Start: 1960 Sex Assigned At Female W [facility] Gender identity Not on file [facility] Work Phone: Medical Equipment Procedure Code Equipment Code Equipment Original Text Equipment Identifier Dates Liborio Bn Smpx P Tobra Fd - [id number] Start: 06-22-2011 Comment on above: Description: ANTIBIO TIC SIMPLEX CEMENT Liborio Bn Smpx P Speedset Fd Fst - [id number] Start: 04-18-2012 Comment on above: Description: ANTIBIO TIC SIMPLEX Comp Fem 3 Lt Kn Cr Liborio Trthln - [id number] Start: 04-18-2012 Comment on above: Description: CRUCIAT RETAINING FEMORAL Comp Fem 3 Rt Kn Cr Liborio Trthln - [id number] Start: 06-22-2011 Comment on above: Description: cruciat e retaining femoral Ins Tib 3 13mm K n X3 Cr Trthln - [id number] Start: 06-22-2011 Comment on above: Description: tibial bearing inert Comp Pat 9mm 29m m Asym Trthln - [id number] Start: 04-18-2012 Comment on above: Description: ASYMMET SHAQUILLE PATELLA Ins Tib 3 9mm Kn X3 Cs Trthln - [id number] Start: 04-18-2012 Comment on above: Description: TIBIAL BEARING INSERT Comp Pat 10mm 32mm Asym Trthln - [id number] Start: 06-22-2011 Comment on above: Description: Asymmet shaquille Patella Baseplt Tib Trthln 3 Prim - [id number] Start: 06-22-2011 Comment on above: Description: primary tibial baseplate Baseplt Tib Trthln 3 Prim - [id number] Start: 04-18-2012 Comment on above: Description: TIBIAL BASEPLATE K-Wire & Guide .035 X 5.5 - [id number] Start: 08-14-2013 Comment on above: Description: K-WIRE IMPLANTED 2, WASTED 4. Functional Status Date Assessment Result Facility NEGATED: Highlighted row Functional performance Functional status health issues are not documented Disease [facility] Work Phone: Mental Status Date Assessment Result Facility NEGATED: Highlighted row Cognitive function [Interpretation] Cognitive status health issues are not documented Disease [facility] Work Phone: Clinical Notes 02-01-2021 to 11-10-2024 Note Date & Type Note Facility 11-10-2024 Evaluation note Diagnosis Onset Date Resolution Fatigue acute November 10 11:19am Epilepsy chronic November 10 11:19am Polyneuropathy inactive November 11:19am [facility] Work Phone: 1(234) 717-768212-16-2023 Emergency department Note* Trent Domínguez MD - 03/24/2023 12:29 AM EST Patient is a 62-year-old female presents with a chief complaint of dyspnea and having some sores onthe underneath of her upper lip. This has been going on for quite some time . Initially she thought it might have been COVID which she had 2 weeks ago but that has seemingly resolved. What they areactually wondering, the patient and is if she is having an allergic reaction to meloxicam an d if they should stop it. No chest [...] Trent Domínguez MD 03/24/23114 documented in this [facility] Work Phone: 1(335) 239-725212-16-2023 Physician Emergency department Note* Trent Domínguez MD - 03/24/2023 12:29 AM EST Patient is a 62-year-old female presents with a chief complaint of dyspnea and having some sores onthe underneath of her upper lip. This has been going on for quite some time . Initially she thought it might have been COVID which she had 2 weeks ago but that has seemingly resolved. What they areactually wondering, the patient and is if she is having an allergic reaction to meloxicam an d if they should stop it. No chest [...] Hypertension, unspecified type Trent Domínguez MD 03/24/23114 [facility] Work Phone: 1(829) 874-553801-10-2023 Miscellaneous Notes* Telephone Encounter - Arias Ruggiero RN - 04/18/2022 4:32 PM EST LVM that [facility] sent a fax for refill. Pt is due for an appt. Enc to call to sched appt and let us know if she does need a refill. Arias Ruggiero RN [facility] NoteAccession #: [id number] Date of Procedure: 11/11/2021 Pathologist: [facility], Cytology Date Reported: 11/18/2021 Date Received: 11/11/2021 Submitting Physician: GENA BUSH M.D. FINAL CYTOLOGICAL INTERPRETATION A. THINPREP PAP CERVICAL: Specimen Adequacy: SATISFACTORY FOR EVALUATION. Quality Indicator: Absence of endocervical/transformation zone component. General Categorization: NEGATIVE FOR INTRAEPITHELIAL LESION OR MALIGNANCY. HIGH RISK HPV TEST RESULT: NEGATIVE Reference Range: Negative Slide(s) initially screened by a Shoe Cementer at [facility], [address] [place], [place] [id number] Testing for high-risk (HR) type of human [...] patient?s Pap test results. Please refer to ASC current guidelines for the use of HPV DNA testing, result interpretation, and patient management. The performance of this test was verified by the Molecular Diagnostic Laboratory at [facility]. The lab is certified under the Clinical Laboratory Amendments of 1988 (CLIA 88) as qualified to perform high complexity clinical laboratory testing. This specimen has been analyzed by the [employer]or.MEPrep Imaging System ([employer] an automated imaging and review system, which assists the laboratory in evaluating cells on ThinPrep Pap tests. Following automated imaging, selected gomez from every slide were reviewed by a marina sales and service supervisor and/or pathologist. Electronically Signed Out By [facility], Cytology//KMW By the signature on this report, the individual or group listed as making the Final Interpretation/Diagnosis certifies that they have reviewed this case. Diagnostic interpretation performed at [facility] [address] [place] [address] Educational Note: Cervical cytology is a screening [...] Source of Specimen A: THINPREP PAP CERVICAL [facility] Department of Pathology [id number] [place] [id number] Institute for RehabilitationComment on above:Performed By: #### CBCDF #### [facility] [address] [place], [place] [phone] Miscellaneous Notes* Telephone Encounter - Merary Aviles MA - 07/18/2021 2:36 PM EDT Notified patient to make appt for annual exam to get more refills. Merary Aviles MA documented in this [facility]03-30-2022 Miscellaneous Notes* Telephone Encounter - Merary Aviles MA - 07/06/2021 2:03 PM EDT Requesting estradiol vaginal 42.5gm 0.01% last seen Dr Donis 03/26/2020 LM to make appt for AE. vm [facility] History of Present illness Narrative* Charly Reyes DPM - 06/20/2021 3:50 PM EDT Images from the original note were not included. Charly Reyes DPM Patient Name: Vani Escobar. . Date of : 1960, 61 y.o.. Gender: female. Subjective: Patient is a pleasant 60-year-old female who presents to clinic with her spouse for follow-up evaluation of bilateral foot pain, left worse than right. Patient has degenerative arthritis of bilateralfoot, left worse than right. States that the [...] second and third tarsometatarsal joint, left foot. Anklejoint range of motion is intact. Pain with [...] satisfaction. Patient understands to call with any questionsor concerns. Patient is to follow-up in 8 weeks for evaluation and possible steroid injection. Charly Reyes DPM, MS Podiatric Physician & Surgeon documented in this [id number] History of Present illness Narrative* Charly Reyes DPM - 05/16/2021 7:45 PM EST Images from the original note were not [...] Sitting, BP Cuff Size: Adult) Pulse 70 Temp98.2 F (36.8 C) (Oral) General Appearance: Alert, [...] inverters and everters. Compartments soft and compressible. Nocalf pain Assessment: 1. Primary osteoarthritis of left [...] left foot 2nd and 3rd tarsometatarsal joints. Patienttolerated the injection well. A Band-Aid was applied at the injection site. Additionally, I prescribed bilateral ankle stability braces to help control the subtalar joint, therefore alleviating pain and discomfort. These were fitted and dispensed to her in the office. All questions were answered to patient satisfaction. Patient understands to call with any questionsor concerns. Patient is to follow-up in 4 weeks for evaluation. Charly Reyes DPM, MS Podiatric Physician & Surgeon documented in this [id number] NoteHNO ID: [id number] Author: RT Dayami(R) Service: ? Author Type: Technologist Type: Progress [...] IV DATA: Not applicable SIGNED BY: RT Dayami(R) February 01, 2021 4:00 [facility] note* Diagnosis Primary osteoarthritis of left foot- Primary Primary osteoarthritis of right foot Bilateral foot pain documented in this encounter [facility] note* Diagnosis Primary osteoarthritis of left foot- Primary Primary osteoarthritis of right foot Bilateral foot pain documented in this encounter [facility] note* Diagnosis Onset Date Resolution Status Epilepsy [facility] Work Phone: Evaluation note* Diagnosis Encounter for screening mammogram for malignant neoplasm of breast documented in this encounter [facility] Work Phone: Evaluation note* Diagnosis Encounter for screening mammogram for malignant neoplasm of breast documented in this encounter [facility] Work Phone: Evaluation note* Diagnosis Shortness of breath- Primary Hypertension, unspecified type documented in this encounter [facility] Work Phone: Evaluation note* Diagnosis Encounter for screening mammogram for malignant neoplasm of breast documented in this encounter [facility] Work Phone: Evaluation note* Diagnosis Onset Date Resolution Status Admit Date Epilepsy chronic November 10 11:19am [facility] Work Phone: Reilxw for referral (narrative)No reason for referral information availableJohn [facility]. [facility] Work Phone: Reason for visit Narrative* Imaging (Routine) - Authorized Specialty Diagnoses / Procedures Referred By Contac t Referred To Contact Radiology Diagnoses Encounter for screening mammogram for malignant neoplasm of breast Procedures BI mammo bilateral screening tomosynthesis Mammogram, Self Referral, [address] [place] [address] Referral ID Status Reason Start Date Expiration Date Visits Requested Visits Authorized [id number] Authorized Perform Procedure 4 02/27/2025 1 1 [facility] Work Phone: Summary Purpose Family History No Family History Records FoundUnknown Family Member Name Dates Details No pertinent family history: Mother, Father(V49.89, Z78.9) Status:Active Advance Directives No Advanced Directives Records FoundDocuments on File Type Date Recorded Patient Local Sales Associate Expl anation Advance Directives and Livin g Will 02/03/2020 10:41 AM Documents on File Type Date Recorded Patient Local Sales Associate Expl anation Advance Directives and Livin g Will Advance Directives and Livin g Will 02/03/2020 10:41 AM History of Present Illness * Sherron Faye, PT - 02/03/2020 10:45 AM EDT [facility] Evaluation Today's Date 02/03/2020 [...] her grandchildren Home environment: house (3 ALEJANDRO) Evangelical, social, or cultural considerations to be made [...] Visit 1: 10:55 - 11:35 Therapeutic Exercise (35373) Intervention provided written HEP handouts consisting of [...] with HEP in 2 weeks. CPT Code 32397 Low 04822 Moderate 46873 High History 0 1-2 3+ Comorbidities: asthma, [...] result in the following functiona l limitations: research software engineer, functional mobility, recreational activities, quality of life [...] pain control. Sherron Faye PT State License, [id number] documented in this encounter* No Linda, POTTERY STRIPER - 02/05/2020 1:45 PM EDT [facility] OUTPATIENT REHABIL[facility]ATION DAILY TREATMENT NOTE Today's [...] Treatments: Physical Therapy Exercise Log - 02/05/20 7169 OTHER Notes Visit 1: 10:55 - 11:35 Therapeutic Exercise (65392) Intervention provided written HEP handouts consisting of [...] HEP /technique Linda No PTA STATE LICENSE, [id number] documented in this encounter* Dania Abdul PTA - 02/17/2020 11:30 AM EST [facility] OUT[facility]IENT REH[facility]IL[facility]ATION DAILY TREATMENT NOTE Today's [...] 1127 OTHER Precautions/Contraindications *Mounika Notes Visit 3: 7581-1430 Therapeutic Exercise (10441) Intervention Scifit L1 x8min Parameters SKTC w/ [...] as tolerated Dania Abdul PTA STATE LICENSE, [id number] documented in this encounter* Sherron Faye, PT - 02/26/2020 11:30 AM EST [facility] OUT[facility]IENT REH[facility]IL[facility]ATION DAILY TREATMENT NOTE Today's [...] Visit 5: 11:34 - 12:12 Therapeutic Exercise (56305) Intervention Scifit L2 x 6min Parameters SKTC [...] and stability Sherron Faye PT State License, [id number] documented in this encounter* Dania Abdul, POTTERY STRIPER - 02/24/2020 11:30 AM EST [facility] OUTPATIENT REH[facility]IL[facility]ATION DAILY TREATMENT NOTE Today's [...] 1137 OTHER Precautions/Contraindications *Mounika Notes Visit 4: 9282-3948 Therapeutic Exercise (14404) Intervention Scifit L1 x8min Parameters SKTC w/ [...] with focus on progressing as tolerated Dania Abudl PTA STATE LICENSE, [id number] documented in this encounter Assessments Diagnosis Radiculopathy, lumbar region Thoracic or lumbosacral neuritis or radiculitis, unspecified Sciatica of right side Diagnosis Radiculopathy, lumbar region- Primary Thoracic or lumbosacral neuritis or radiculitis, unspecified Chief Complaint and Reason for Visit Chief Complaint 6 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 Reason for Visit Epilepsy Chief Complaint 6 M FU LUMBAGO WITH SCIATICA Reason for Visit Epilepsy Chief Complaint Admit Date FOLLOW UP November 10, 2024 11: 19am Reason for Visit Admit Date Epilepsy November 10, 2024 11: 19am Chief Complaint Admit Date FOLLOW UP November 10, 2024 11: 19am EORDERS November 10, 2024 12: 33pm Reason for Visit Admit Date Fatigue November 10, 2024 11: 19am Epilepsy November 10, 2024 11: 19am Polyneuropathy November 10, 2024 11: 19am Reason for Referral Specialty Diagnoses / Procedures Referred By Arelis benson Referred To Contact Radiology Diagnoses Encounter for screening mammogram for malignant neoplasm of breast Procedures BI mammo bilateral screening tomosynthesis Sahil Bella, FRANKIE-SON [place] [address] Referral ID Status Reason Start Date Expiration Date Visits Requested Visits Authorized [id number] Authorized Perform Procedure 01/12/2023 07/11/2023 1 1 Additional Source Comments INFORMATION SOURCE (unrecogn ized section and content) DATE CREATED AUTHOR 02/05/2018 [facility] DATE CREATED AUTHOR AUTHOR'S ORGANIZ ATION 11/23/2018 [facility] DATE CREATED AUTHOR AUTHOR'S ORGANIZ ATION 11/28/2018 [facility] DATE CREATED AUTHOR AUTHOR'S ORGANIZ ATION 03/01/2020 [facility] DATE CREATED AUTHOR AUTHOR'S ORGANIZ ATION 05/31/2021 [facility] DATE CREATED AUTHOR AUTHOR'S ORGANIZ ATION 06/21/2021 [facility] DATE CREATED AUTHOR AUTHOR'S ORGANIZ ATION 11/12/2021 [facility] DATE CREATED AUTHOR AUTHOR'S ORGANIZ ATION 03/13/2022 [facility] DATE CREATED AUTHOR AUTHOR'S ORGANIZ ATION 03/15/2022 [facility] DATE CREATED AUTHOR AUTHOR'S ORGANIZ ATION 04/19/2022 [facility] DATE CREATED AUTHOR AUTHOR'S ORGANIZ ATION 01/03/2024 [facility] DATE CREATED AUTHOR AUTHOR'S ORGANIZ ATION 06/02/2024 [facility] DATE CREATED AUTHOR AUTHOR'S ORGANIZ ATION 11/20/2024 [facility] DATE CREATED AUTHOR AUTHOR'S ORGANIZ ATION 12/15/2024 [facility] Reason for Visit (unrecogniz ed section and content) Reason Comments Physical Therapy Status Reason Specialty Diagnoses / Procedures Referred By Contact Referred To Contact Authorized Rehabilitation Diagnoses Radiculopathy, lumbar region Emre Ramirez, [address] [place] [address] [address] Reason Comments Foot Pain Bilateral foot pain x years. Feet are stiff and sore. Pain radiates down her feet and up her ankles. She doesn't potato picker feet when walking so she falls a [...] BI mammo bilateral screening tomosynthesis Sahil Bella, FRANKIE-SON [facility] [address] [facility] [address] Referral ID Status Reason Start Date Expiration Date Visits Requested Visits Authorized [id number] Authorized Perform Procedure 01/12/2023 07/11/2023 1 1 Reason Comments Shortness of Breath Care Teams (unrecognized sec tion and content) Building Maintenance Repairer Relationship Specialty Start Date End Date Don Hernandez MD [address] [place], [place] [id number] PCP - General Family Medicine 01/27/20 Building Maintenance Repairer Relationship Specialty Start Date End Date Don Hernandez MD [address] [place], [place] [phone] PCP - General Family Medicine 01/27/20 Building Maintenance Repairer Relationship Specialty Start Date End Date Don Hernandez MD PCP - General Family Practice 10/03/16 Building Maintenance Repairer Relationship Specialty Start Date End Date Don [...] Provide r, Attending Provider, Referring Provider Active Building Maintenance Repairer Relationship Specialty Start Date End Date Sahil Bella, PIECE MEAT TRIMMER-LOTTERY MANAGER [address] [address] PCP - General Family Medicine 03/08/23 Building Maintenance Repairer Relationship Specialty Start Date End Date Sahil Bella APRN-LOTTERY MANAGER [address] [phone] PCP - General Family Medicine 03/08/23 Building Maintenance Repairer Relationship Specialty Start Date End Date Sahil Bella APRN-CNP [place] [phone] PCP - General Family Medicine 03/08/23 Building Maintenance Repairer Relationship Specialty Start Date End Date Sahil Bella APRN-CNP [place] [phone] PCP - General Family Medicine 03/08/23 Team Status: Active Member Role/Relationship Status Dates Sahil Bella LEVEL VIAL INSPECTOR-C Primary Care Provider Active Team Status: Inactive Member Role/Relationship Status Dates Sahil Bella LEVEL VIAL INSPECTOR-C Primary Care Provider Active Start: November 10, 2024 End: November 10, 2024 Sahil Bella NP-Arlet Referring Provider Active St art: November 10, 2024 End: November 10, 2024 Dr. Deon Mendoza MD Attending Provider Active Start: November 10, 2024 End: November 10, 2024 Team Status: Inactive Member Role/Relationship Status Dates Sahil Bella NP-C Primary Care Provider Active Start: November 10, 2024 End: November 10, 2024 Dr. Deon Mendoza MD Attending Provider Active Start: November 10, 2024 End: November 10, 2024 Dr. Deon Mendoza MD Referring Provider Active Start: November 10, 2024 End: November 10, 2024 Source Comments (unrecognize d section and content) In the event this informatio n is protected by the Federal Confidentiality of Alcohol and Drug Abuse Patient Records regulations: The Federal rules restrict any use of the information to criminally investigate or prosecute any alcohol or drug abuse patient.[facility] HospitalIn the event this information is protected by the Federal Confidentiality of Alcohol and Drug Abuse Patient Records regulations: The Federal rules restrict any use of the information to criminally investigate or prosecute any alcohol or drug abuse patient.[facility] HospitalIn the event this information is protected by the Federal Confidentiality of Alcohol and Drug Abuse Patient Records regulations: The Federal rules restrict any use of the information to criminally investigate or prosecute any alcohol or drug abuse patient.[facility] Goals (unrecognized section and content) Goals [...] BE BASED ON THE PRIMARY CLINICAL RECORDS. [employer] [facility]. provides no warranty or guarantee of the accuracy or completeness of information in this document.
== END | disposition home or self-care (01) ==
LOC: BFHLAB 15:53
PROVIDERS: PCP Nurse Practitioner Family; Visit Provider Nurse Practitioner Family
DX: E78.5 Hyperlipidemia, unspecified (principal); E55.9 Vitamin D deficiency, unspecified
CPT/HCPCS: 36415; 80061; 82306